=== PATIENT | female | born 1985 | race Caucasian/White ===

== ENCOUNTER 2021-11-25 09:07 | Outpatient (CLI) | payer BC, SELFPAY ==
--- NOTE | 2021-11-25 09:15 | CRLHL7_ITS ---
For Patients: As a result of the Century Cures Act, medical imaging exams and procedure reports are released immediately into your electronic medical record. You may view this report before your referring provider. If you have questions, please contact your health care provider. INDICATION: Third trimester scan, evaluate growth. Large for dates. COMPARISON: 08/05/2021 TECHNIQUE: Real time harris scale imaging of the fetus was performed. FINDINGS: Sonographic imaging demonstrates a single living intrauterine gestation. Fetus demonstrates a regular cardiac rate of 141 beats per minute. Fetus has a vertex position. The placenta lies posteriorly. Amniotic fluid volume appears increased and there is a single deepest vertical pocket: 9.0 cm. SANCHEZ 31.6 cm. The estimated weight is 3524gm which lies at the greater than 97th %. On the prior OB ultrasound exam dated 08/05/2021 the estimated weight was at the 96th%. BPD greater than 97th percentile. HC 88th percentile. Abdominal circumference greater than 97th percentile. FL 90th percentile. The HC/AC ratio measures 0.98 range (0.88-1.06). Normal gross body movements, tone and respiratory activity. IMPRESSION: Sonographic gestational age 38 weeks 5 days and sonographic due date 12/04/2021. Sonographic age 18 days ahead of the clinical age. Estimated weight greater than 97th percentile. Abdominal circumference greater than 97th percentile. Polyhydramnios with four-quadrant SANCHEZ 31.6 cm. Normal biophysical profile 12/23. Dictated by Erlin Barragan MD @ 11/25/2021 10:33:21 AM (Electronically Signed)
== END 2021-11-25 09:08 | disposition home or self-care (01) ==
LOC: US 09:08
PROVIDERS: Visit Provider Physician Assistant
DX: O36.63X0 Maternal care for excessive fetal growth, third trimester, not applicable or unspecified (principal); O40.3XX0 Polyhydramnios, third trimester, not applicable or unspecified; Z3A.38 38 weeks gestation of pregnancy
CPT/HCPCS: 76816; 76819

== ENCOUNTER 2021-12-02 09:32 | Outpatient (CLI) | payer BC, SELFPAY ==
--- NOTE | 2021-12-02 09:45 | CRLHL7_ITS ---
For Patients: As a result of the Century Cures Act, medical imaging exams and procedure reports are released immediately into your electronic medical record. You may view this report before your referring provider. If you have questions, please contact your health care provider. INDICATION: POLYHYDRAMNIOS COMPARISON: 11/25/2021, 08/05/2021 TECHNIQUE: Real time harris scale imaging of the fetus was performed. FINDINGS: Sonographic imaging demonstrates a single living intrauterine gestation. Fetus demonstrates a regular cardiac rate of 159 beats per minute. Fetus has a vertex position. The placenta lies fundal posterior. Amniotic fluid volume appears increased and there is a single deepest vertical pocket: 11.4 cm. SANCHEZ 30.2 cm. Normal gross body movements, tone and respiratory activity. IMPRESSION: Normal biophysical profile 12/23. Polyhydramnios, similar to the prior study 11/25/2021, measuring 30.2 cm. Dictated by Erlin Barragan MD @ 12/02/2021 10:34:03 AM (Electronically Signed)
--- OUTSIDE RECORDS SUMMARY | 2021-12-24 14:15 | XMS_ITS | Encounter Summary ---
:1985 Author Organization [facility] Address [address] [place] [address] Care Team Providers Name Role Phone Unavailable Primary Care Provider Unavailable Encounter Details Date Type Department Care Team Description 05/29/2017 Hospital Encounter HX NO MAPPING Social History Tobacco Use Types Packs/Day Years Used Date Smoking Tobacco: Never Assessed Sex Assigned at Date Recorded Not on file documented as of 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 Last Filed Vital Signs Vital Sign Reading Time Taken Comments Blood Pressure 109/61 05/29/2017 5:49 AM [employer] Pulse 65 05/29/2017 5:49 AM [employer] Temperature - - Respiratory Rate 16 05/29/2017 5:49 AM [employer] Oxygen Saturation - - Inhaled Oxygen Concentration - - Weight 88.8 kg (195 lb 12.3 oz) 05/29/2017 5:49 AM [employer] Height 175 cm (5' 8.9) 05/29/2017 5:49 AM [employer] Body Mass Index 29 05/29/2017 5:49 AM [employer] documented in 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 Plan of Treatment Not on filedocumented as of 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 Visit Diagnoses Not on filedocumented in 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
--- OUTSIDE RECORDS SUMMARY | 2021-12-24 14:15 | XMS_ITS | Encounter Summary ---
:1985 Author Organization [facility] Address [address] [place] [address] Care Team Providers Name Role Phone Carine Campos PA-C Primary Care Provider Unavailable Reason for Visit Reason Onset Date Comments refill request 04/06/2020 Encounter Details Date Type Department Care Team Description 04/06/2020 Telephone [place] Carine Campos PA-C refill request 111 [facility] [address] [place], [place] [address] Social History Tobacco Use Types Packs/Day Years Used Date Never Smoker Smokeless Tobacco: Never Used Alcohol Use Standard Drinks/Week Comments Yes 2 (1 standard drink = 0.6 oz pure alcoho l) Alcohol Habits Answer Date Recorded How often do you have a drink containing alcohol? 2-4 times a month 04/17/2020 How many drinks containing alcohol do you have on a 1 or 2 04/17/2020 typical day when you are drinking? How often do you have six or more drinks on one Less than mo nthly 04/17/2020 occasion? Comment: Not asked Social Isolation Answer Date Recorded In a typical week, how many times do you Twice a week 04/17/2020 talk on the phone with family, friends, or neighbors? How often do you get together with friends Once a week 04/17/2020 or relatives? How often do you attend judaism or voodoo 1 to 4 times per year 04/17/2020 services? Do you belong to any clubs or organizations Yes 04/17/2020 such as judaism groups, unions, fraternal or athletic groups, or school groups? How often do you attend meetings of the More than 4 times pe r year 04/17/2020 clubs or organizations you belong to? Are you now , , , 04/17/2020 , never or living with a partner? Physical Activity Answer Date Recorded On average, how many days per week do you engage in moderate to 0 days 04/17/2020 strenuous exercise (like walking fast, running, jogging, dancing, swimming, biking, or other activities that cause a light or heavy sweat)? On average, how many minutes do you engage in exercise at th is 0 min 04/17/2020 level? Stress Answer Date Recorded Do you feel stress - tense, restless, nervous, or To some ex tent 04/17/2020 anxious, or unable to sleep at night because your mind is troubled all the time - these days? Financial Resource Strain Answer Date Recorded How hard is it for you to pay for the very basics like Not h maxi at all 04/17/2020 food, housing, medical care, and heating? Intimate Partner Violence Answer Date Recorded Within the last year, have you been afraid of your partner o r No 04/17/2020 ex-partner? Within the last year, have you been humiliated or emotionall y No 04/17/2020 abused in other ways by your partner or ex-partner? Within the last year, have you been kicked, hit, slapped, or No 04/17/2020 otherwise physically hurt by your partner or ex-partner? Within the last year, have you been raped or forced to have any No 04/17/2020 kind of sexual activity by your partner or ex-partner? Food Insecurity Answer Date Recorded Within the past 12 months, you worried that your food would Never true 04/17/2020 run out before you got money to buy more. Within the past 12 months, the food you bought just didn't N ever true 04/17/2020 last and you didn't have money to get more. Transportation Needs Answer Date Recorded In the past 12 months, has lack of transportation kept you f rom No 04/17/2020 medical appointments or from getting medications? In the past 12 months, has lack of transportation kept you f rom No 04/17/2020 meetings, work, or getting things needed for daily living? Education Answer Date Recorded What is the highest level of school Bachelor's degree (e.g., BA, AB, 03/11/2018 you have completed or the highest BS) degree you have received? Sex Assigned at Date Recorded Female 03/11/2018 9:45 AM CDT documented as of 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 Miscellaneous Notes Telephone Encounter - Carine Campos PA-C - 04/06/2020 7:03 PM CST Refilled. ETING AUTOMATION SPECIALIST Telephone Encounter - Svetlana Paredes RN - 04/06/2020 2:38 PM CST Last office visit 03/21/2019, last refill 03/21/2019, please advise ETING AUTOMATION SPECIALIST Telephone Encounter - Rosita Glass - 04/06/2020 11:50 AM CST drospirenone-ethinyl estradiol (RAJI SMITH) 3-0.02 MG per tablet Take 1 tablet by mouth 1 (one) time each day Devan Bansal Pt has apt on 04/17 ETING AUTOMATION SPECIALIST documented in 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 Plan of Treatment Not on filedocumented as of 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 Visit Diagnoses Diagnosis Encounter for surveillance of contracept sonal pills documented in 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 Care Teams Associate Art Director Relationship Specialty Start Date End Date Carine Campos PA-C PCP - General Family Medicine 03/21/1907/16 documented as of 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
--- OUTSIDE RECORDS SUMMARY | 2021-12-24 14:15 | XMS_ITS | Encounter Summary ---
:[address] [facility] Address [address] [place] [address] Care Team Providers Name Role Phone Unavailable Primary Care Provider Unavailable Reason for Visit Reason Onset Date Comments Outpatient COVID-19 Testing 02/13/2020 Encounter Details Date Type Department Care Team Description 02/13/2020 External Outreach Department of [facility] Stormy Styles Infection Upper Medicine, [place] Vini PSophieAMurtazaCSophie Respiratory (Primary Clinic, in [place], [address]) [place], [place] [address] [address] [place], [place] [phone] (Work) [phone] Social History Tobacco Use Types Packs/Day Years Used Date Smoking Tobacco: Never Sex Assigned at Date Recorded Not on file documented as of 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 Progress Notes Sofia Robert RFidencio - 02/13/2020 12:37 PM CDT Encounter created for the drive-through COVID-19 testing. documented in 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 Plan of Treatment Not on filedocumented as of 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 Procedures Procedure Name Priority Date/Time Associated Diagnosis Comme nts SARS CORONAVIRUS-2 Routine 02/13/2020 12:58 PM Infection Upper Results for this RNA, V CDT Respiratory procedure are i n the results section. documented in 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 Results SARS Coronavirus-2 RNA, V Symptomatic (02/13/2020 12:58 PM CDT) [facility] Method Time Signature SARS-CoV-2 Swab, 02/14/2020 ECLR Specimen Nasopharynx 3:08 PM CDT Source SARS CoV-2 Undetected Undetected 02/14/2020 ECLR RNA, TMA 3:08 PM CDT Comment: SARS-CoV-2 RNA absent. This result does not rule out COVID-19 in the patient, as the sensitivity of the test depends o n the timing of the specimen collection and the quality of the specim en. Result should be correlated with patient's history and clinical presentat ion. ----ADDITIONAL INFORMATION---- This test is performed using the Aptima SARS-CoV-2 assay ([employer] which has received Emergency Use Authori zation (EUA) by the U.S. Food and Drug Administration. Fact sheets for this Emergency Use Autho rization (EUA) assay can be found at the following links: For Healthcare Providers: https://www.M:Metrics a.gov/media/616384/download For Patients: https://www.fda.gov/media/ 482354/download Specimen Anatomical Collection Method Collection Time Receive d Time (Source) Location / / Volume Laterality Varies 02/13/2020 12:58 02/13/2020 9:26 (Nasopharynx) PM CDT PM CDT Rafael Styles P.A.-C. LAB MICROBIOLOGY - GENERAL O RDERABLES Performing Organization Address City/State/ZIP Code Phon e Number [facility] [address] [place] [address] [phone] [facility] [place] [address] System in [address] documented in 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 Visit Diagnoses Diagnosis Infection Upper Respiratory - Primary documented in 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 Additional Health Concerns Infection Onset Date Last Indicated Resolved Time COVID19 Pending 02/13/2020 02/13/2020 02/14/2020 3:09 PM CDT documented as of 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
--- OUTSIDE RECORDS SUMMARY | 2021-12-24 14:15 | XMS_ITS | Encounter Summary ---
:1985 Author Organization [facility] Address [address] [place] [address] Care Team Providers Name Role Phone Unavailable Primary Care Provider Unavailable Encounter Details Date Type Department Care Team Description 2016 Hospital Encounter HX RST PMR PT OT CON Geraldine Escobar M, O.T. [address] [place] [id number] Social History Tobacco Use Types Packs/Day Years Used Date Smoking Tobacco: Never Assessed Sex Assigned at Date Recorded Not on file documented as of 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 Plan of Treatment Not on filedocumented as of 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 Visit Diagnoses Not on filedocumented in 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
--- OUTSIDE RECORDS SUMMARY | 2021-12-24 14:15 | XMS_ITS | Encounter Summary ---
:1985 Author Organization [facility] Address [address] [place] [address] Care Team Providers Name Role Phone Unavailable Primary Care Provider Unavailable Encounter Details Date Type Department Care Team Description 09/29/2016 Hospital Encounter HX RST EMERGENCY Provider, Historic al TRAUMA UNI Social History Tobacco Use Types Packs/Day Years Used Date Smoking Tobacco: Never Assessed Sex Assigned at Date Recorded Not on file documented as of 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 Plan of Treatment Not on filedocumented as of 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 Procedures Procedure Name Priority Date/Time Associated Comments Diagnosis FL FLUORO LESS THAN Routine 09/29/2016 6:21 PM Re sults for this 1 HOUR CDT procedure are i n the results section. DX HAND UNILATERAL Routine 09/29/2016 3:29 PM Res ults for this 3+ VIEWS CDT procedure are i n the results section. documented in 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 Results FL Fluoro Less Than 1 Hour (09/29/2016 6:21 PM CDT) Anatomical Region Laterality Modality Radiographic Imaging Specimen (Source) Anatomical Collection Method Collection Time Re ceived Time Location / / Volume Laterality 09/29/2016 6:21 PM CDT Impressions 09/29/2016 7:11 PM CDT Image intensifier used. Image(s) acquired. Electronically signed by: ?? Yue Bhandari MD [phone] 29-Sep-2016 18:28 I have reviewed the films/images and agr ee with the above interpretation. Electronically signed by: ?? Lore Garnica ??Oralia [phone] 29-Sep-2016 19 :11 Narrative 09/29/2016 7:11 PM CDT 29-Sep-2016 18:21:00 ??Exam: Fluoro Assistance less < 1hr Indications: Surgery ORIGINAL REPORT - 29-Sep-2016 18:28:00 EXAM: Fluoro Assistance less < 1hr: Procedure Note Shimon Garnica M.D. - 08/12/2017Format ting of this note might be different from the original. 29-Sep-2016 18:21:00 Exam: Fluoro Assist ance less < 1hr Indications: Surgery ORIGINAL REPORT - 29-Sep-2016 18:28:00 EXAM: Fluoro Assistance less < 1hr: IMPRESSION: Image intensifier used. Imag e(s) acquired. Electronically signed by: Yue Bhandari MD [phone] 29-Sep-2016 18:28 I have reviewed the films/images and agr ee with the above interpretation. Electronically signed by: Lore Garnica M.D. [phone] 29-Sep-2016 19:1 1 Sebastien Mirza M.D. IMG FLUOROSCOPY PROCEDURES DX Hand 3+ Views (09/29/2016 3:29 PM CDT) Anatomical Region Laterality Modality Upper Extremity, Hand N/A Radiographic Imagi ng Specimen (Source) Anatomical Collection Method Collection Time Re ceived Time Location / / Volume Laterality 09/29/2016 3:29 PM CDT Impressions 09/29/2016 3:34 PM CDT ??Soft tissue defect involving the distal right third ray with the distal tuft of the third distal phalanx exposed. There is a mild cortical irregularity of the distal tuft. Remainder negative. Electronically signed by: ?? Yue Brooke MD [id number] 29-Sep-2016 15:34 Narrative 09/29/2016 3:34 PM CDT 29-Sep-2016 15:29:00 ??Exam: R Hand PA Obl Splayed Lateral Indications: amputation distal right thi rd ORIGINAL REPORT - 29-Sep-2016 15:34:00 EXAM: ??Hand PA Obl Splayed Lateral RIGH T Procedure Note Jm Brooke M.D. - 08/12/2017F ormatting of this note might be different from the original. 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 There is a mild cortical irregularity of the distal tuft. Remainder negative. Electronically signed by: Yue Brooke MD [id number] 29-Sep-2016 15:34 Geraldine Boykin APRN.NCaterina IMG DIAGNOSTIC IMAGING PROCEDURES documented in 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 Visit Diagnoses Not on filedocumented in 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
--- OUTSIDE RECORDS SUMMARY | 2021-12-24 14:15 | XMS_ITS | Encounter Summary ---
:1985 Author Organization [facility] Address [address] [place] [address] Care Team Providers Name Role Phone Unavailable Primary Care Provider Unavailable Reason for Referral Specialty Diagnoses / Procedures Referred By Contact Refer red To Contact [facility] [place] [facility] [address] [place] [address] Referral ID Status Reason Start Date Expiration Date Visits Requ ested Visits Authorized Encounter Details Date Type Department Care Team Description 08/09/2020 Immunization Department of [facility] For COVID-19 Medicine, [place] Oralia Key Vaccine Immunization [facility], [address] (Primary Dx) in [place], [place] [address] [facility] [address] [place] [address] Social History Tobacco Use Types Packs/Day Years Used Date Smoking Tobacco: Never Sex Assigned at Date Recorded Not on file documented as of 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 Plan of Treatment Scheduled Referrals Name Type Priority Associated Diagnoses Order S chedule Covid immunization Outpatient Referral Routine Encounter For E xpected: office visit Covid-19 Vaccine 08/30/2020, Subsequent; 21 days Immunization Expires: 08/10/2023 documented as of 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 Visit Diagnoses Diagnosis Encounter For COVID-19 Vaccine Immunizat ion - Primary documented in 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
--- OUTSIDE RECORDS SUMMARY | 2021-12-24 14:15 | XMS_ITS | Encounter Summary ---
:1985 Author Organization [facility] Address [address] [place] [address] Care Team Providers Name Role Phone Unavailable Primary Care Provider Unavailable Reason for Visit Reason Comments COVID Nurse Line Encounter Details Date Type Department Care Team Description 02/13/2020 Clinical Communication Division of Brenda Domínguez Nurse [facility] Internal R, R.N. [facility] [address] [place] [address], in [facility] [address] [place] [phone] [place] [address] (Work) [place] [id number] Social History Tobacco Use Types Packs/Day Years Used Date Smoking Tobacco: Never Sex Assigned at Date Recorded Not on file documented as of 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 Miscellaneous Notes Telephone Encounter - Brenda Domínguez RSophieNSophie - 02/13/2020 12:07 PM CDT COVID-19 Nurse Line Screening ASSESSMENT COVID 19 Screening Have you had close contact with a person who has a LABORATORY CONFIRMED case of COVID-19 in the past14 days?: No - Continue screening. In the last 48 hours have you had any of the following symptoms?: New cough, New shortness of breath(sneezing, congestion) Do you have any urgent symptoms?: None (Continue Screening) Has the patient had COVID19 diagnosed with a PCR test in the last 90 days? : No (End Screening- Patient Meets Criteria for Testing PLAN Endpoint recommendation: Screening positive, testing indicated, advised to be swabbed for COVID-19, sent to [facility] located at [address] [facility]. Testing hours are M-F 10 am to 5 pm and Sat-Sun 9 am to 2 pm. When you arrive stay in your car and someone will direct you. , If it is currently after hours, please report to the testing site when it is next open. and Please avoid using public transportation per CDC recommendation. If you do not have personal transportation please self-quarantine until a personal transportation option is available. Care Points provided: STANDARD PRECAUTIONS FOR ALL PATIENTS: Wash hands often with soap and water for at least 20 seconds, especially after blowing your nose, coughing, sneezing, or having been in a public place. If soap and water aren't available, use a hand checker bakery products that contains at least 60% alcohol. Avoid close contact with anyone who may be exhibiting respiratory symptoms such as coughing and sneezing. Avoid touching your eyes, nose and mouth. Clean and disinfect frequently touched surfaces daily. Cover your mouth and nose with a cloth face cover when around others or in public. The cloth face cover is not a substitute for social distancing. Continue to keep about 6 feet between yourself andothers. Monitor for symptoms. Do not take your temperature within 30 minutes of exercise. If your test or screen is negative and new symptoms develop please contact your provider if it has been greaterthan 72 hours since you were tested. Educational Resource: https://www.cdc.gov/coronavirus/2019-ncov/ bgrmqmf-ywxutrg-bpyj/index.html RECOMMENDATIONS TESTING CRITERIA IS MET: Stay home except to get medical care. Quarantine for 14 days if exposed to someone with a laboratory confirmed case of COVID-19 exposure regardless of your test results. Avoid public areas and public transportation. Separate yourself from other people and stay in a specific sick room if possible. Wear a cloth face covering, over your nose and mouth if youmust be around other people even at home). Cover your nose and mouth when coughing or sneezing. Contact employer/occupational health department to notify them that they are being tested. Seek emergent care if any of the following occur: 1) Trouble breathing, 2) Bluish lips or face, 3) Persistent pain or pressure in the chest, 4) Newly confused or unable to stay alert and awake. Notify appropriate care provider if any new or worsening symptoms. You may need re-testing if it has been greater than 72 hours after a negative COVID- 19 test result. Education Resources: https://www.cdc.gov/coronavirus/2019- ncov/dz-amz-dyp-sick/vlbql-yxqs-mytg.html SELF CARE FOR ALL PATIENTS: Take breaks from watching, reading, or listening to news stories. Education: Patient/caregiver able to teach back Patient agreeable to plan of care: Yes The following references were used: [facility] novel coronavirus (COVID- 19) resources Nursing judgement documented in 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 Plan of Treatment Not on filedocumented as of 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 Visit Diagnoses Not on filedocumented in 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
--- OUTSIDE RECORDS SUMMARY | 2021-12-24 14:15 | XMS_ITS | Encounter Summary ---
:1985 Author Organization [facility] Address [address] [place] [address] Care Team Providers Name Role Phone Unavailable Primary Care Provider Unavailable Encounter Details Date Type Department Care Team Description 09/29/2016 Hospital Encounter HX NO MAPPING Social History Tobacco Use Types Packs/Day Years Used Date Smoking Tobacco: Never Assessed Sex Assigned at Date Recorded Not on file documented as of 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 Last Filed Vital Signs Vital Sign Reading Time Taken Comments Blood Pressure 122/62 09/29/2016 6:35 PM CDT Pulse 84 09/29/2016 6:35 PM CDT Temperature - - Respiratory Rate 16 09/29/2016 6:35 PM CDT Oxygen Saturation - - Inhaled Oxygen Concentration - - Weight - - Height - - Body Mass Index - - documented in 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 Plan of Treatment Not on filedocumented as of 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 Visit Diagnoses Not on filedocumented in 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
--- OUTSIDE RECORDS SUMMARY | 2021-12-24 14:15 | XMS_ITS | Clinical Summary ---
:1985 Author Organization [facility] Address [address] [place] [address] Care Team Providers Name Role Phone Unavailable Primary Care Provider Unavailable Allergies Active Allergy Reactions Severity Noted Date Comments Amoxicillin Rash Medium Morphine Dizziness Medium Medications Medication Sig Dispensed Refills Start Date End Date Status aspirin-acetaminophen- Take 1 tablet by 0 Active caffeine (EXCEDRIN mouth if needed MIGRAINE) 250-250-65 (migraine) MG per tablet cetirizine (ZyrTEC) 10 Take by mouth 1 0 Active MG tabletIndications: (one) time each Seasonal Allergic day if needed for Rhinitis allergies drospirenone-ethinyl Take 1 tablet by 84 tablet 3 04/17/2020 Active estradiol (LUIS) 3-0.02 mouth 1 (one) time MG per each day tabletIndications: Encounter for surveillance of contraceptive pills Active Problems Problem Noted Date Class 1 obesity due to excess calories without serious comorbidity with 03/21/2019 body mass index (BMI) of 31.0 to 31.9 in adult Last Assessment & Plan: Formatting of is note might be different from the original. Discussed importance of weight loss. Marcie rahman admits to frustrations with her weight and overeating. Offered referral to nutrition, patient declined. Advised 5 servings fruits vegetables daily, increasin g exercise throughout the week. Will con tinue to monitor. Well woman exam 03/21/2019 Last Assessment & Plan: Formatting of is note might be different from the original. Immunizations due: Up-to-date, declined influenza vaccine Mammogram: Not indicated, clinical breas t exam done today. Pap exam: Done today PHQ-9: 0 MAYUR-7: 0 Diabetes and hyperlipidemia screen done last year and normal. Advised patient to return to clinic for further evaluation of her right knee pain should it continue to bother her. We discussed the possible physical therapy. Advised patient to monitor mole on the right breast for changes. Nevus 03/21/2019 Overview: On the lateral aspect of the right brekaci t. Immunizations Name Administration Dates Next Due Tdap 09/29/2016 Family History Medical History Relation Comments Lung cancer Maternal Grandfather Diabetes Maternal Grandmother Hyperlipidemia Maternal Grandmother Hypertension Maternal Grandmother Hyperlipidemia Mother Relation Status Comments Maternal Grandfather Maternal Grandmother Mother Social History Tobacco Use Types Packs/Day Years [...] or relatives? How often do you attend baptism or gnosticist 1 to 4 times per year 04/17/2020 services? Do you belong to any clubs or organizations Yes 04/17/2020 such as baptism groups, unions, fraternal or athletic groups, or [...] Date Recorded Female 03/11/2018 9:45 AM CDT Last Filed Vital Signs Vital Sign Reading Time Taken Comments Blood Pressure 120/84 04/17/2020 2:29 PM MOVIE MACHINE OPERATOR Pulse 72 04/17/2020 2:29 PM MOVIE MACHINE OPERATOR Temperature 36.1 ??C (97 ??F) 04/17/2020 2:29 PM MOVIE MACHINE OPERATOR Respiratory Rate 18 04/17/2020 2:29 PM MOVIE MACHINE OPERATOR Oxygen Saturation 99% 04/17/2020 2:29 PM MOVIE MACHINE OPERATOR Inhaled Oxygen Concentration - - Weight 99.6 kg (219 lb 9.6 oz) 04/17/2020 2:29 PM MOVIE MACHINE OPERATOR Height 176.5 cm (5' 9.49) 04/17/2020 2:29 PM MOVIE MACHINE OPERATOR Body Mass Index 31.98 04/17/2020 2:29 PM MOVIE MACHINE OPERATOR Plan of Treatment Health Maintenance Due Date Last Done Comments COVID-19 Vaccine (3 - Booster 02/04/2021 09/04/2020, for Pfizer series) 08/09/2020 Pap Smear 03/21/2022 03/21/2019, 02/13/2016 [facility] Pneumococcal Vaccine: 65+ 10/21/2052 Years (1 - PCV) HPV Vaccines Aged Out No longer eligib le based on patient's age to complete this to [facility] Pneumococcal Vaccine: <64 Aged Out No longer eligible based on patient's age to complete this to [facility] Insurance Payer Benefit Plan / Subscriber ID Effective Dates Phone Addre ss Type Group BCBS OF BCBS OF [id number] [place] [id number] [place] [address] (Home) [place] [id number]
--- OUTSIDE RECORDS SUMMARY | 2021-12-24 14:15 | XMS_ITS | Encounter Summary ---
:1985 Author Organization [facility] Address [address] [place] [address] Care Team Providers Name Role Phone Unavailable Primary Care Provider Unavailable Encounter Details Date Type Department Care Team Description 01/26/2021 Admin Visit Department of Family Rafael Styles, Medicine, [facility] in [facility] [address] [facility] [address] [place] [address] [place] [address] [phone] Social History Tobacco Use Types Packs/Day Years Used Date Smoking Tobacco: Never Sex Assigned at Date Recorded Not on file documented as of 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 Plan of Treatment Not on filedocumented as of 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 Visit Diagnoses Not on filedocumented in 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 Additional Health Concerns Infection Onset Date Last Indicated Resolved Time COVID19 Pending 01/26/2021 01/26/2021 01/26/2021 8:39 PM CDT documented as of 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
--- OUTSIDE RECORDS SUMMARY | 2021-12-24 14:15 | XMS_ITS | Encounter Summary ---
:[address] [facility] Address [address] [place] [address] Care Team Providers Name Role Phone Unavailable Primary Care Provider Unavailable Reason for Referral Specialty Diagnoses / Procedures Referred By Contact Refer red To Contact Gustabo Castaneda M.D. [facility] [place] [address] [place] [address] Referral ID Status Reason Start Date Expiration Date Visits Requ ested Visits Authorized Encounter Details Date Type Department Care Team Description 08/02/2020 Orders Only [facility] PCP TH BAMT Sa rosendo Champagne M.D. [address] [place], [place] [phone] (Wo rk) Social History Tobacco Use Types Packs/Day Years Used Date Smoking Tobacco: Never Sex Assigned at Date Recorded Not on file documented as of 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 Plan of Treatment Scheduled Referrals Name Type Priority Associated Order Schedule Diagnoses Covid immunization Outpatient Referral Routine Ex pected: office visit Initial 021 (Approximate), Expires: 08/02/2021 documented as of 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 Visit Diagnoses Not on filedocumented in 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
--- OUTSIDE RECORDS SUMMARY | 2021-12-24 14:15 | XMS_ITS | Encounter Summary ---
:1985 Author Organization [facility] Address [address] [place] [address] Care Team Providers Name Role Phone Unavailable Primary Care Provider Unavailable Encounter Details Date Type Department Care Team Description 04/03/2020 Admin Visit Department of Family Medicine, [facility] in [place], [place] [address] [place] [address] Social History Tobacco Use Types Packs/Day Years Used Date Smoking Tobacco: Never Sex Assigned at Date Recorded Not on file documented as of 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 Plan of Treatment Not on filedocumented as of 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 Visit Diagnoses Not on filedocumented in 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 Additional Health Concerns Infection Onset Date Last Indicated Resolved Time COVID19 Pending 04/03/2020 04/03/2020 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
--- OUTSIDE RECORDS SUMMARY | 2021-12-24 14:15 | XMS_ITS | Encounter Summary ---
:1985 Author Organization [facility] Address [address] [place] [address] Care Team Providers Name Role Phone Unavailable Primary Care Provider Unavailable Encounter Details Date Type Department Care Team Description 10/14/2016 Hospital Encounter HX NO MAPPING Social History Tobacco Use Types Packs/Day Years Used Date Smoking Tobacco: Never Assessed Sex Assigned at Date Recorded Not on file documented as of 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 Plan of Treatment Not on filedocumented as of 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 Visit Diagnoses Not on filedocumented in 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
--- OUTSIDE RECORDS SUMMARY | 2021-12-24 14:15 | XMS_ITS | Encounter Summary ---
:[address] [facility] Address [address] [place] [address] Care Team Providers Name Role Phone Kristi Dubois DNP, BLOCK PRESS OPERATOR, DUMPER Primary Care Provider [phone] Encounter Details Date Type Department Care Team Description 03/22/2018 [facility] Screening for diabetes melli tus; [address] Screening for hyperlipidemia [place], [place] [address] Social History Tobacco Use Types [...] or relatives? How often do you attend anabaptist or taoism 1 to 4 times per year 04/17/2020 services? Do you belong to any clubs or organizations Yes 04/17/2020 such as anabaptist groups, unions, fraternal or athletic groups, or [...] AM CDT documented as of 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 Plan of Treatment Not on filedocumented as of 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 Procedures Procedure Name Priority Date/Time Associated Diagnosis Comme nts FASTING ? Routine 03/22/2018 8:35 AM Screening for diabetes Results for this SYSTEM TECHNOLOGIST mellitus procedure are i n the results section. HEMOCUE GLUCOSE Routine 03/22/2018 8:35 AM Screening for diabe anahi Results for this SYSTEM TECHNOLOGIST mellitus procedure are i n the results section. LIPID PANEL Routine 03/22/2018 8:35 AM Screening for Results for this SYSTEM TECHNOLOGIST hyperlipidemia procedure are in the results section. documented in 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 Results Fasting ? (03/22/2018 8:35 AM SYSTEM TECHNOLOGIST) P athologist Signature Fasting? Yes 03/22/2018 8:38 [facility] AM SYSTEM TECHNOLOGIST LAB Specimen Anatomical Collection Method Collection Time Receive d Time (Source) Location / / Volume Laterality 03/22/2018 8:35 AM 8 8:35 SYSTEM TECHNOLOGIST AM SYSTEM TECHNOLOGIST Kristi Dubois DNP, BLOCK PRESS OPERATOR, DUMPER LAB BLOOD ORDERABLES Performing Organization Address City/State/ZIP Code Phon e Number [facility] [address] [place] [address] Lipid panel (03/22/2018 8:35 AM SYSTEM TECHNOLOGIST) P athologist Signature Cholesterol 150 0 - 199 03/22/2018 [facility] mg/dL 12:59 PM [facility] Comment: Recommended by National Cholesterol Education Program (ATP III) -------- Cholesterol Ranges -------- <200 ? Desirable 200-239 ? Borderline high >=240 ? High Triglycerides 90 0 - 149 mg/dL 03/22/2018 12:59 PM [facility] Comment: -------- TRIG Ranges -------- <150 ?Normal 150-199 ? Borderline high 200-499 ? High >=500 ? Very high HDL 54 40 - 60 mg/dL 03/22/2018 12:59 PM [facility] Comment: -------- HDL Ranges -------- <40 ?Low 40-59 ?Normal >=60 ? Optimal LDL Calculated 78 0 - 99 mg/dL 03/22/2018 12:59 PM CS [facility] Comment: -------- LDL Ranges -------- <100 ? Optimal 100-129 ?Near optimal/above op timal 130-159 ?Borderline high 160-189 ?High >=190 ?Very high Fasting? Yes 03/22/2018 8:38 AM [facility] Specimen Anatomical Collection Method Collection Time Receive d Time (Source) Location / / Volume Laterality Blood (Blood, 03/22/2018 8:35 AM 03/22/20 18 Venous) SYSTEM TECHNOLOGIST 12:20 PM SYSTEM TECHNOLOGIST Kristi Dubois DNP, APRN, DUMPER LAB BLOOD ORDERABLES Performing Organization Address City/[facility]/ZIP Code Phon e Number [facility] [address] [place] [phone] HemoCue glucose (03/22/2018 8:35 AM SYSTEM TECHNOLOGIST) P athologist Signature Glucose, Bld 98 70 - 100 03/22/2018 [facility] mg/dL 8:58 AM [facility] Comment: . Specimen Anatomical Collection Method Collection Time Receive d Time (Source) Location / / Volume Laterality Blood 03/22/2018 8:35 AM 8 8:35 SYSTEM TECHNOLOGIST AM SYSTEM TECHNOLOGIST Kristi Dubois DNP, APRN, DUMPER LAB BLOOD ORDERABLES Performing Organization Address City/[facility]/ZIP Code Phon e Number [facility] [address] [place] [address] documented in 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 Visit Diagnoses Diagnosis Screening for diabetes mellitus Screening for hyperlipidemia Screening for lipoid disorders documented in 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 Care Teams Communications Analyst Relationship Specialty Start Date End Date Muzic, Kristi J, DNP, BLOCK PRESS OPERATOR, DUMPER PCP - General 12/22/17 03/20/19 documented as of 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
--- OUTSIDE RECORDS SUMMARY | 2021-12-24 14:15 | XMS_ITS | Encounter Summary ---
:1985 Author Organization [facility] Address [address] [place] [address] Care Team Providers Name Role Phone Carine Campos PA-C Primary Care Provider Unavailable Encounter Details Date Type Department Care Team Description 12/06/2018 Telephone [place] Carine Campos PA-C [address] [place] [address] [address] [place], [place] [address] Social History Tobacco Use Types [...] or relatives? How often do you attend druze or oriental orthodox 1 to 4 times per year 04/17/2020 services? Do you belong to any clubs or organizations Yes 04/17/2020 such as druze groups, unions, fraternal or athletic groups, or [...] Diagnoses Not on filedocumented in 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 Care Teams Residential Appliance Repair Technician Relationship Specialty Start Date End Date Carine Campos PA-C PCP - General Family Medicine 03/21/1907/16 documented as of 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
--- OUTSIDE RECORDS SUMMARY | 2021-12-24 14:15 | XMS_ITS | Encounter Summary ---
:1985 Author Organization [facility] Address [address] [place] [address] Care Team Providers Name Role Phone Unavailable Primary Care Provider Unavailable Reason for Visit Reason Onset Date Comments Outpatient COVID-19 Testing 04/03/2020 Encounter Details Date Type Department Care Team Description 04/03/2020 External Outreach Department of [facility] Stormy Styles Infection Upper Medicine, [place] [facility] (Primary Clinic, in [place], [address]) [place], [place] [address] [address] [place], [place] [phone] [phone] (Work) [phone] Social History Tobacco Use Types Packs/Day Years Used Date Smoking Tobacco: Never Sex Assigned at Date Recorded Not on file documented as of 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 Progress Notes Sonia Iraheta L.P.N. - 04/03/2020 1:51 PM CST Encounter created for the drive-through COVID-19 testing. 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 documented in 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 Results SARS Coronavirus-2 RNA, V Symptomatic (04/03/2020 2:19 PM MARKETING TEACHER) [facility] Method Time Signature SARS-CoV-2 Swab, 04/04/2020 [facility] Specimen Nasopharynx 12:31 PM Source MARKETING TEACHER SARS CoV-2 Undetected Undetected 04/04/2020 [facility] RNA, TMA 12:31 PM MARKETING TEACHER Comment: SARS-CoV-2 RNA absent. This result does not rule out COVID-19 in the patient, as the sensitivity of the test depends o n the timing of the specimen collection and the quality of the specim en. Result should be correlated with patient's history and clinical presentat ion. ----ADDITIONAL INFORMATION---- This test is performed using the Aptima SARS-CoV-2 assay ([employer] which has received Emergency Use Authori zation (EUA) by the U.S. Food and Drug Administration. Fact sheets for this Emergency Use Autho rization (EUA) assay can be found at the following links: For Healthcare Providers: https://www.MedAware a.gov/media/352268/download For Patients: https://www.fda.gov/media/ 519223/download Specimen Anatomical Collection Method Collection Time Receive d Time (Source) Location / / Volume Laterality Varies 04/03/2020 2:19 PM 0 9:58 (Nasopharynx) MARKETING TEACHER PM MARKETING TEACHER Rafael Styles P.A.-C. 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
--- OUTSIDE RECORDS SUMMARY | 2021-12-24 14:15 | XMS_ITS | Encounter Summary ---
:[address] [facility] Address [address] [place] [address] Care Team Providers Name Role Phone Carine Leo PA-C Primary Care Provider Unavailable Reason for Visit Reason Comments Annual Exam Encounter Details Date Type Department Care Team Description 03/21/2019 Office Visit [place] Carine Leo, Well woman exam (Primary Dx) ; [address] Encounter for surveillance o f contraceptive pills; [place], [place] [address] Screening for cervical cance r; [phone] Screening for h uman papillomavirus (HPV); Influenza vacci nation declined; Class 1 obesity due to excess calories without serious comorbidity with body mass index (BMI) of 31.0 to 31.9 in adult Social History Tobacco Use Types Packs/Day Years [...] or relatives? How often do you attend voodoo or jewish 1 to 4 times per year 04/17/2020 services? Do you belong to any clubs or organizations Yes 04/17/2020 such as voodoo groups, unions, fraternal or athletic groups, or [...] AM CDT documented as of 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 Last Filed Vital Signs Vital Sign Reading Time Taken Comments Blood Pressure 112/72 03/21/2019 9:29 AM COMMUNITY LIVING INSTRUCTOR Pulse 82 03/21/2019 9:29 AM COMMUNITY LIVING INSTRUCTOR Temperature 36.5 ??C (97.7 ??F) 03/21/2019 9:29 AM COMMUNITY LIVING INSTRUCTOR Respiratory Rate 16 03/21/2019 9:29 AM COMMUNITY LIVING INSTRUCTOR Oxygen Saturation 100% 03/21/2019 9:29 AM COMMUNITY LIVING INSTRUCTOR Inhaled Oxygen Concentration - - Weight 98.7 kg (217 lb 11.2 oz) 03/21/2019 9:29 AM COMMUNITY LIVING INSTRUCTOR Height 177 cm (5' 9.69) 03/21/2019 9:29 AM COMMUNITY LIVING INSTRUCTOR Body Mass Index 31.52 03/21/2019 9:29 AM COMMUNITY LIVING INSTRUCTOR documented in 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 Progress Notes Carine Leo PA-C - 03/21/2019 9:40 AM CST Well Adult - Estab Subjective Patient ID: Ivis Bell is a 33 y.o. female. Chief Complaint Patient presents with ??? Annual Exam HPI Patient is a 33-year-old female with medical history significant for obesity presenting today for annual exam. She has no questions or concerns today. 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 She needs a refill of her oral contraceptive pill. Periods are regular. Denies history of migraine with aura, bleeding disorder, tobacco use. Patient and her plan on having children but are not yet trying to conceive. She stays active by going to exercise classes 2-3 times per week. She admits to overeating and is frustrated with her weight. She is due for Pap smear today. She does get occasional migraines without aura, about once a month. Controlled with Excedrin. She takes occasional Zyrtec forseasonal allergies. No other questions or concerns today. 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 Current Outpatient Medications: ??? iptjnjs-cyzwjhmspllpk-kdclqykv (EXCEDRIN MIGRAINE) 250-250-65 MG per tablet, Take 1 tablet by mouth if needed (migraine) , Disp: , Rfl: ??? cetirizine (ZyrTEC) 10 MG tablet, Take by mouth 1 (one) time each day if needed for allergies, Disp: , Rfl: ??? drospirenone-ethinyl estradiol (LUIS,GIANVI) 3-0.02 MG per tablet, Take 1 tablet by mouth 1 (one)time each day, Disp: 84 tablet, Rfl: 3 Allergies as of 03/21/2019 - Reviewed 03/21/2019 Allergen Reaction Noted ??? Amoxicillin Rash ??? Morphine Dizziness Past Medical History: Diagnosis Date ??? PCOS (polycystic ovarian syndrome) Past Surgical History: Procedure Laterality Date ??? EXPLORATORY LAPAROTOMY 2007 ??? WISDOM TOOTH EXTRACTION Family History Problem Relation Age of Onset ??? Hyperlipidemia Mother ??? Diabetes Maternal Grandmother ??? Hypertension Maternal Grandmother ??? Hyperlipidemia Maternal Grandmother ??? Lung cancer Maternal Grandfather Social History Socioeconomic History ??? Marital status: Spouse name: William ??? Number of children: 0 ??? Years of education: None ??? Highest education level: Bachelor's degree (e.g., BA, AB, BS) Occupational History ??? Occupation: [employer] Comment: [email or web address] Social Needs ??? Financial resource strain: Not hard at all ??? Food insecurity: Worry: Never true Inability: Never true ??? Transportation needs: Medical: No Non-medical: No Tobacco Use ??? Smoking status: Never Smoker ??? Smokeless tobacco: Never Used Substance and Sexual Activity ??? Alcohol use: Yes Alcohol/week: 1.2 oz Types: 1 Glasses of wine, 1 Cans of beer per week Frequency: 2-4 times a month Drinks per session: 1 or 2 Binge frequency: Less than monthly ??? Drug use: No ??? Sexual activity: Yes Partners: Male control/protection: OCP Lifestyle ??? Physical activity: Days per week: 2 days Minutes per session: 50 min ??? Stress: To some extent Relationships ??? Social connections: Talks on phone: Twice a week Gets together: Once a week Attends jewish service: 1 to 4 times per year Active member of club or organization: Yes Attends meetings of clubs or organizations: More than 4 times per year Relationship status: ??? Intimate partner violence: Fear of current or ex partner: No Emotionally abused: No Physically abused: No Forced sexual activity: No Other Topics Concern ??? None Social History Narrative ??? None Review of Systems Musculoskeletal: Positive for arthralgias (Intermittent right knee pain and stiffness for the past year since injuring it hiking 1 year ago). Skin: Negative for color change, pallor, rash and wound. Brown mole near the breast that she has had as long as she can remember, no changes. All other systems reviewed and are negative. Immunization History Administered Date(s) Administered ??? Tdap 09/29/2016 Objective Visit Vitals BP 112/72 (BP Location: Right arm, Patient Position: Sitting) Pulse 82 Temp 36.5 ??C (97.7 ??F) (Temporal) Resp 16 Ht 1.77 m (5' 9.69) Wt 98.7 kg (217 lb 11.2 oz) LMP 02/22/2019 SpO2 100% BMI 31.52 kg/m?? Smoking Status Never Smoker BSA 2.2 m?? Physical Exam Constitutional: She appears well-developed and well-nourished. HENT: Head: Normocephalic and atraumatic. Right Ear: Tympanic membrane and external ear normal. Left Ear: Tympanic membrane and external ear normal. Nose: Nose normal. Mouth/Throat: Oropharynx is clear and moist. Eyes: Pupils are equal, round, and reactive to light. Conjunctivae and EOM are normal. Neck: Normal range of motion. Neck supple. Carotid bruit is not present. No thyromegaly present. Cardiovascular: Normal rate, regular rhythm, normal heart sounds and intact distal pulses. Pulmonary/Chest: Effort normal and breath sounds normal. Right breast exhibits no inverted nipple, no mass, no skin change and no tenderness. Left breast exhibits no inverted nipple, no mass, no skin change and no tenderness. No breast tenderness. Breasts are symmetrical. Abdominal: Soft. Bowel sounds are normal. There is no tenderness. Genitourinary: Vagina normal and uterus normal. No breast tenderness. There is no rash on the right labia. There is no rash on the left labia. Right adnexum displays no mass. Left adnexum displays no mass. Lymphadenopathy: She has no cervical adenopathy. Neurological: She is alert. She displays normal reflexes. Skin: Skin is warm and dry. Capillary refill takes less than 2 seconds. Brown, raised nevus on the lateral aspect of the right breast, approximately 7 mm in diameter. Psychiatric: She has a normal mood and affect. Her behavior is normal. Patient did seem a little emotional today during the encounter. She started to get tearful without obvious cause. When I asked patient if she was all right, she said I do not know and said that she was just a little nervous today. Tearfulness resolved spontaneously and normal mood returned by the end of the encounter. Vitals reviewed. Assessment/Plan Problem List Items Addressed This Visit Digestive Class 1 obesity due to excess calories without serious comorbidity with body mass index (BMI) of 31.0 to 31.9 in adult Discussed importance of weight loss. Patient admits to frustrations with her weight and overeating.Offered referral to nutrition, patient declined. Advised 5 servings fruits vegetables daily, increasing exercise throughout the week. Will continue to monitor. Other Well woman exam - Primary Immunizations due: Up-to-date, declined influenza vaccine Mammogram: Not indicated, clinical breast exam done today. Pap exam: Done today PHQ-9: 0 MAYUR-7: 0 Diabetes and hyperlipidemia screen done last year and normal. Advised patient to return to clinic for further evaluation of her right knee pain should it continueto bother her. We discussed the possible physical therapy. Advised patient to monitor mole on the right breast for changes. Other Visit Diagnoses Encounter for surveillance of contraceptive pills Relevant Medications drospirenone-ethinyl estradiol (RAJI SMITH) 3-0.02 MG per tablet Screening for cervical cancer Relevant Orders Pap Smear Screening for human papillomavirus (HPV) Relevant Orders HPV High Risk DNA Detection with Genotyping (Completed) Influenza vaccination declined Carine Leo PA-C UNITY LIVING INSTRUCTOR documented in 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 Miscellaneous Notes Assessment & Plan Note - Carine Leo PA-C - 03/21/2019 12:02 PM CSTAssociated Problem(s): Well woman exam Immunizations due: Up-to-date, declined influenza vaccine Mammogram: Not indicated, clinical breast exam done today. Pap exam: Done today PHQ-9: 0 MAYUR-7: 0 Diabetes and hyperlipidemia screen done last year and normal. Advised patient to return to clinic for further evaluation of her right knee pain should it continueto bother her. We discussed the possible physical therapy. Advised patient to monitor mole on the right breast for changes. UNITY LIVING INSTRUCTOR Assessment & Plan Note - Carine Leo PA-C - 03/21/2019 12:01 PM CSTAssociated Problem(s): Class 1 obesity due to excess calories without serious comorbidity with body mass index (BMI) of 31.0 to 31.9 in adult Discussed importance of weight loss. Patient admits to frustrations with her weight and overeating. Offered referral to nutrition, patient declined. Advised 5 servings fruits vegetables daily, increasing exercise throughout the week. Will continue to monitor. UNITY LIVING INSTRUCTOR documented in 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 Plan of Treatment Not on filedocumented as of 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 Procedures Procedure Name Priority Date/Time Associated Diagnosis Comme nts HPV HIGH RISK DNA Routine 03/21/2019 9:56 AM Screening for hum an Results for this DETECTION WITH COMMUNITY LIVING INSTRUCTOR papillomavirus (HPV) proce jacques are in GENOTYPING the results section. PAP TEST Routine 03/21/2019 9:56 AM Screening for cervical Results for this COMMUNITY LIVING INSTRUCTOR cancer procedure are i n the results section. documented in 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 Results HPV High Risk DNA Detection with Genotyping (03/21/2019 9:56 AM COMMUNITY LIVING INSTRUCTOR) [facility] Method Time Signature Source Endocervical 03/24/2019 [facility] 5:13 PM COMMUNITY LIVING INSTRUCTOR [facility] HPV Type 16 Negative Negative 03/24/2019 [facility] 5:13 PM COMMUNITY LIVING INSTRUCTOR [facility] HPV Type 18 Negative Negative 03/24/2019 [facility] 5:13 PM COMMUNITY LIVING INSTRUCTOR [facility] HPV non-Type Negative Negative 03/24/2019 [facility] 16 or 18 5:13 PM COMMUNITY LIVING INSTRUCTOR [facility] Comment: The following Other High Risk HPV types were not detected: 31, 33, 35, 39, 45, 51, 52, 56, 58, 59, 66, and 68 ADDITIONAL INFORMATIO N This test has been modified from the man renettar's instructions. Its performance characteri stics were determined by [facility] in a manner co nsistent with CLIA requirements. This test has not been leona ared or approved by the U.S. Food and Drug Administration. Test Performed by: [facility] - [address] [address] Ciso: Joao Alexis M.D. Ph. D.; CLIA# [id number] Specimen (Source) Anatomical Collection Method Collection Time Re ceived Time Location / / Volume Laterality Pap collection 03/21/2019 9:56 03/21/2019 1:27 bottle AM COMMUNITY LIVING INSTRUCTOR PM COMMUNITY LIVING INSTRUCTOR Carine Leo PA-C LAB CYTOLOGY ORDERABLES Performing Organization Address City/State/ZIP Code Phon e Number [facility] see result attachment for specific address Pap Smear (03/21/2019 9:56 AM COMMUNITY LIVING INSTRUCTOR) Specimen Anatomical Collection Method Collection Time Receive d Time (Source) Location / / Volume Laterality Sure Path PAP, 03/21/2019 9:56 AM 019 3:44 screen COMMUNITY LIVING INSTRUCTOR PM COMMUNITY LIVING INSTRUCTOR Narrative [facility] - 03/18 2:30 PM COMMUNITY LIVING INSTRUCTOR ? [facility] ? [address] ?[place] [address] ? Patient: ?IVIS BELL ? Procedure: ? 03/21/2019 09:56 /Age/Sex: ??1985, 33 Y, F ? Received: ?03/21/2019 15:44 ?Accession #: ?? [id number] Billing: ?[id number] ?Patient Location: [facility] ?OFFICE Ordered by: ?? CARINE LEO PA-C ? Attending: ? CARINE LEO PA-C ? [facility] CYTOLOGY FINAL REPORT SPECIMEN: (A) SURE PATH PAP, SCREEN SPECIMEN DESCRIPTION: Endocervical Received cloudy specimen in SurePath via l. CLINICAL INFORMATION: LMP: 02/22/2019 ?? Prev.normal: 2016 ??SPECIMEN ADEQUACY: Satisfactory for Evaluation. ??Endocervi temo cells/transformation zone component present. GENERAL CATEGORIZATION: Negative for Intraepithelial Lesion or M alignancy PAP Test Disclaimer Cervical cytology is a screening test pr imarily for squamous cancer and its precursors and has associated false-nega tive and false-positive results. Regular sampling and follow-up of unexplained cl inical signs and symptoms are recommended to minimize the impact of false negative and false positive results. Screened By: Signed By: DEENA REDD(ASCP) <Sign Out Dr. Travis> Reported: ??03/28/2019 ? Page 1 of 1 Carine Leo PA-C LAB CYTOLOGY ORDERABLES Performing Organization Address City/State/ZIP Code Phon e Number [facility] [address] [place] [address] documented in 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 Visit Diagnoses Diagnosis Well woman exam - Primary Routine general medical examination at a health care facility Encounter for surveillance of contracept sonal pills Screening for cervical cancer Screening for malignant neoplasm of the cervix Screening for human papillomavirus (HPV) Special screening examination for human papillomavirus (HPV) Influenza vaccination declined Class 1 obesity due to excess calories w ithout serious comorbidity with body mass index (BMI) of 31.0 to 31.9 in adult documented in 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 Care Teams Associate Relations Specialist Relationship Specialty Start Date End Date Carine eLo PA-C PCP - General Family Medicine 03/21/1907/16 documented as of 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
--- OUTSIDE RECORDS SUMMARY | 2021-12-24 14:15 | XMS_ITS | Clinical Summary ---
:1985 Author Organization [facility] Address [address] [place] [address] Care Team Providers Name Role Phone Unavailable Primary Care Provider Unavailable Source Comments Patient records contain information from all sites at [facility]. For routine questions regarding patient records, call [phone] during business hours, M-F 8:00 AM - 5:00 PM Central Time. Record requests for emergency care only can be directed to [phone] at any time.[facility] Immunizations Name Administration Dates Next Due SARS-COV-2 (COVID-19) - PFIZER (12 years or older) , 08/09/2020 Tdap 09/29/2016 Social History Tobacco Use Types Packs/Day Years Used Date Smoking Tobacco: Never Sex Assigned at Date Recorded Not on file Last Filed Vital Signs Vital Sign Reading Time Taken Comments Blood Pressure 109/61 05/29/2017 5:49 AM COMMERCIAL TELLER Pulse 65 05/29/2017 5:49 AM COMMERCIAL TELLER Temperature - - Respiratory Rate 16 05/29/2017 5:49 AM COMMERCIAL TELLER Oxygen Saturation - - Inhaled Oxygen Concentration - - Weight 88.8 kg (195 lb 12.3 oz) 05/29/2017 5:49 AM COMMERCIAL TELLER Height 175 cm (5' 8.9) 05/29/2017 5:49 AM COMMERCIAL TELLER Body Mass Index 29 05/29/2017 5:49 AM COMMERCIAL TELLER Plan of Treatment Health Maintenance Due Date Last Done Comments HIV Screening 1985 Hepatitis C Screening 1985 COVID-19 Vaccine (3 - Booster 02/04/2021 09/04/2020, for Pfizer series) 08/09/2020 Depression Screening (Annual 05/18/2021 PHQ-2) Influenza Vaccine (#1) 2022 Cervical Cancer Screening 03/21/2022 03/21/2019 DTaP,Tdap,and Td Vaccines (4 10/29/2031 10/28/2021, - Td or Tdap) 09/29/2016, 12/09/2011 Pneumococcal vaccine (0-64 Aged Out No lo nger eligible based years) on patient's age to complete this to pic Medical Devices Implanted Type Area Planer Setup Operator Device Shelf Model / Identifier Expiration Serial / Date Lot Dressing Integra 5x5 Meshed - Olsen [id number] Bone or Other/Legacy - In tegra Implanted: Qty: 1 on 09/29/2016 Tissue See Implant Description Description: Device Planer Setup Operator - [employer]. Body Location - Other. wound dressing. Device Status Text - BON [id number]. Insurance Payer Benefit Plan Subscriber ID Effective Dates Phone Address Type / Group [facility] [id number] 2017-Ariella [phone] [address] [address] [facility] [address] [place] [address] [place] (Home) [facility] [phone] [employer] (Work) [phone]
--- OUTSIDE RECORDS SUMMARY | 2021-12-24 14:15 | XMS_ITS | Encounter Summary ---
:1985 Author Organization [facility] Address [address] [place] [address] Care Team Providers Name Role Phone Unavailable Primary Care Provider Unavailable Encounter Details Date Type Department Care Team Description 09/04/2020 Immunization Department of [employer] Lee Powers For COVID-19 Medicine, [place] Oralia Key Vaccine Immunization Professional Building, [address] [facility] [address] [facility] in [address] [address] [place] [address] [phone] Social History Tobacco Use Types Packs/Day Years Used Date Smoking Tobacco: Never Sex Assigned at Date Recorded Not on file documented as of 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 Plan of Treatment Not on filedocumented as of 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 Visit Diagnoses Diagnosis Encounter For COVID-19 Vaccine Immunizat ion documented in 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
--- OUTSIDE RECORDS SUMMARY | 2021-12-24 14:15 | XMS_ITS | Encounter Summary ---
:1985 Author Organization [facility] Address [address] [place] [address] Care Team Providers Name Role Phone Unavailable Primary Care Provider Unavailable Reason for Visit Reason Onset Date Comments Testing For Upper Respiratory Virus Symptoms 01/26/2021 Encounter Details Date Type Department Care Team Description 01/26/2021 External Outreach Department of [facility] Stormy Styles Contact With And Medicine, Sascha Martini P.A.-C. (Suspected) Exposure Clinic, in [address] To COVID-19 (Primary [place], [place] Dx) [address] [facility] [address] [place], [place] [phone] (Work) [phone] Social History Tobacco Use Types Packs/Day Years Used Date Smoking Tobacco: Never Sex Assigned at Date Recorded Not on file documented as of 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 Progress Notes Kenneth Reyes RSophieN. - 01/26/2021 7:12 AM CDT Encounter created for symptomatic infectious disease screening with possible COVID, Influenza, RSV, and/or Group A Strep testing. documented in 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 Plan of Treatment Not on filedocumented as of 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 Procedures Procedure Name Priority Date/Time Associated Diagnosis Comme nts SARS CORONAVIRUS-2 Routine 01/26/2021 9:17 AM Contact With And Results for this RNA, V CDT (Suspected) Exposure procedu re are in To COVID-19 the results section. documented in 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 Results SARS Coronavirus-2 RNA, V Symptomatic (01/26/2021 9:17 AM CDT) [facility] Method Time Signature SARS-CoV-2 Swab, 01/26/2021 ECL[facility] Specimen Nasopharynx 8:38 PM CDT Source SARS CoV-2 Undetected Undetected 01/26/2021 E[facility] RNA, TMA 8:38 PM CDT Comment: SARS-CoV-2 RNA absent. This result does not rule out COVID-19 in the patient, as the sensitivity of the test depends o n the timing of the specimen collection and the quality of the specim en. Result should be correlated with patient's history and clinical presentat ion. ----ADDITIONAL INFORMATION---- This molecular amplification test was pe rformed using the Aptima SARS-CoV-2 assay ([employer] on the Xolas tem under emergency use authorization (EUA) by the U.S. Food and Drug Administ ration. Fact sheets for this EUA assay can be fo und at the following links: For Healthcare Providers: https://www.[employer] a.gov/media/230265/download For Patients: https://www.fda.gov/media/ 486118/download Specimen Anatomical Collection Method Collection Time Receive d Time (Source) Location / / Volume Laterality Varies 01/26/2021 9:17 AM 3:08 (Nasopharynx) CDT PM CDT Rafael Styles P.A.-C. LAB MICROBIOLOGY - GENERAL O [place] Performing Organization Address City/State/ZIP Code Phon e Number [facility] [address] [place] [address] [phone] [facility] [place] [address] System [address] documented in 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 Visit Diagnoses Diagnosis Contact With And (Suspected) Exposure To COVID-19 - Primary documented in 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 Additional Health Concerns Infection Onset Date Last Indicated Resolved Time COVID19 Pending 01/26/2021 01/26/2021 01/26/2021 8:39 PM CDT documented as of 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
--- OUTSIDE RECORDS SUMMARY | 2021-12-24 14:15 | XMS_ITS | Encounter Summary ---
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 Telephone Encounter - Svetlana Nagy R.N. - 01/25/2021 4:30 PM CDT COVID-19 Nurse Line Screening ASSESSMENT Region Select appropriate region: : [place] Age Pathway Select approprite pathway: : Adult Have you had close contact* with a person who has a LABORATORY CONFIRMED case of COVID-19 in the past 14 days?: Yes- provide quarantine instructions unless exceptions met. (Continue Screening) (01-23-21) In the last 48 hours, have you had a fever* OR symptoms that are unrelated to a preexisting illness?: New cough (sinus drainage, sneezing; chest congestion) Have you received a COVID-19 vaccine in the last 72 hours? : No vaccine received (Continue Screening) Do you have any of the following urgent symptoms?: No urgent symptoms noted (Continue Screening) Have you tested positive for COVID-19 in the last 45 days?: No (Continue Screening) Are ALL the following criteria met: age between 18 to 75 yrs, main symptom is a sore throat with duration of 24 hrs to 7 days, onset of sore throat not associated with new upper respiratory symptoms*? : No, COVID testing is recommended (End Screening) Symptom Onset Date of symptom onset: 01/22/21 Testing Recommendation Endpoint Is testing recommended? : Recommended to test PLAN Endpoint recommendation: Symptomatic testing indicated, advised to be swabbed for COVID-19 Only , sent to [facility] located at [address] [employer] [address]. An appointment is required for testing, please call [phone] Thursday- Thursday 7am to 6pm and Thursday & Thursday 9am to 4pm to schedule an appointment. Testing hours are 8am - 4:30pm daily. You can also schedule via your [employer] account. and Please avoid using public transportation per CDC recommendation. If you do not have personal transportation please self- quarantine until a personal transportation option is available. Standard Care Points -Get a COVID -19 vaccine as soon as you can if not fully vaccinated. -Wash hands frequently with soap and water, use hand record clerk salesperson if soap and water aren't available. -Wear a mask over your nose and mouth to help protect yourself and others if not fully vaccinated and having no symptoms -Stay 6 feet between yourself and others who don't live with you. -Avoid crowds and poorly ventilated indoor spaces. -Seek emergent care if any of the following occur Trouble breathing Bluish lips or face Persistent pain or pressure in the chest New confusion or inability to rouse. -Notify your regular care provider of any new or worsening symptoms. Symptomatic Carepoints: Stay home and separate yourself from others and stay in a specific sick room if able. Avoid sharing personal or household items. Rest. Hydrate. Take Acetaminophen/Ibuprofen asneeded to control fever and muscles aches. Use over the counter medications as needed for other symptoms. If you have received a negative COVID-19 test result and continue to have new or worsening symptoms after 72 hours please call the COVID Nurse Line to assess if you need repeat testing or reach out to your Primary Care Provider for guidance. Exposure Carepoints: If you are fully vaccinated (last dose was greater than 14 days) quarantine is not needed if you remain without symptoms. Education: Patient/caregiver able to teach back Patient agreeable to plan of care: Yes The following references were used: [facility] novel coronavirus (COVID- 19) resources Nursing judgement documented in 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 Plan of Treatment Not on filedocumented as of 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 Visit Diagnoses Not on filedocumented in 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 Additional Health Concerns Infection Onset Date Last Indicated Resolved Time COVID19 Pending 01/26/2021 01/26/2021 01/26/2021 8:39 PM CDT documented as of 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
--- OUTSIDE RECORDS SUMMARY | 2021-12-24 14:15 | XMS_ITS | Encounter Summary ---
:1985 Author Organization [facility] Address [address] [place] [address] Care Team Providers Name Role Phone Unavailable Primary Care Provider Unavailable Encounter Details Date Type Department Care Team Description 04/03/2020 Clinical Communication Department of [facility] in [place], [place] [address] [place] [address] Social History Tobacco Use Types Packs/Day Years Used Date Smoking Tobacco: Never Sex Assigned at Date Recorded Not on file documented as of 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 Plan of Treatment Not on filedocumented as of 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 Visit Diagnoses Not on filedocumented in 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 Additional Health Concerns Infection Onset Date Last Indicated Resolved Time COVID19 Pending 04/03/2020 04/03/2020 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
--- OUTSIDE RECORDS SUMMARY | 2021-12-24 14:15 | XMS_ITS | Encounter Summary ---
:1985 Author Organization [facility] Address [address] [place] [address] Care Team Providers Name Role Phone Unavailable Primary Care Provider Unavailable Encounter Details Date Type Department Care Team Description 10/30/2016 Hospital Encounter HX NO MAPPING Social History Tobacco Use Types Packs/Day Years Used Date Smoking Tobacco: Never Assessed Sex Assigned at Date Recorded Not on file documented as of 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 Plan of Treatment Not on filedocumented as of 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 Visit Diagnoses Not on filedocumented in 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
--- OUTSIDE RECORDS SUMMARY | 2021-12-24 14:15 | XMS_ITS | Encounter Summary ---
:1985 Author Organization [facility] Address [address] [place] [address] Care Team Providers Name Role Phone Unavailable Primary Care Provider Unavailable Encounter Details Date Type Department Care Team Description 03/06/2021 Orders Only [facility] Rigo Angela MD [address] [facility] [address] [place] [address] [place] [address] [phone] (Wo rk) Social History Tobacco Use Types [...] or relatives? How often do you attend yarsanism or church 1 to 4 times per year 04/17/2020 services? Do you belong to any clubs or organizations Yes 04/17/2020 such as yarsanism groups, unions, fraternal or athletic groups, or [...]
--- OUTSIDE RECORDS SUMMARY | 2021-12-24 14:15 | XMS_ITS | Encounter Summary ---
:1985 Author Organization [facility] Address [address] [place] [address] Care Team Providers Name Role Phone Kristi Dubois DNP, GALVANOMETER ASSEMBLER, SITE PLANNER Primary Care Provider [phone] Reason for Visit Reason Onset Date Comments rx renew 12/06/2018 Encounter Details Date Type Department Care Team Description 12/06/2018 Telephone Jones Carine Campos PA-C rx renew [address] [place] [address] Social History Tobacco Use Types Packs/Day [...] or relatives? How often do you attend presybeterian or uatsdin 1 to 4 times per year 04/17/2020 services? Do you belong to any clubs or organizations Yes 04/17/2020 such as presybeterian groups, unions, fraternal or athletic groups, or [...] 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 Miscellaneous Notes Telephone Encounter - Cheryl Casillas RN - 12/07/2018 2:51 PM CDT Left detailed message on identified voice mail that requested prescription was filled at [facility] pharmacy. Telephone Encounter - Carine Campos PA-C - 12/07/2018 2:38 PM CDT Medication refilled. Telephone Encounter - Cheryl Casillas RN - 12/06/2018 3:51 PM CDT Please send requested rx to [facility]. Telephone Encounter - Irene Busch - 12/06/2018 3:32 PM CDT Patient called to say she wanted it sent to [facility] [employer] [facility] in [place] Telephone Encounter - Eduarda Braga LPN - 12/06/2018 2:11 PM CDT Called patient to ask what pharmacy, [facility]. Telephone Encounter - Carine Campos PA-C - 12/06/2018 11:24 AM CDT I am happy to refill. Please let me know what pharmacy she would like it sent to. Telephone Encounter - Eduarda Braga LPN - 12/06/2018 9:51 AM CDT Carine could you please renew BC pill until she is in for her physical with you. Thank You:) I will charley it up! Telephone Encounter - Irene Narayan - 12/06/2018 9:21 AM CDT Patient is scheduled for physical with Carine on 03/14/19 but will run out of her BC before that. Can she please get it renewed to cover her for now? documented in 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 Plan of Treatment Not on filedocumented as of 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 Visit Diagnoses Diagnosis Encounter for surveillance of contracept sonal pills documented in 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 Care Teams Dry Pan Feeder Relationship Specialty Start Date End Date Kristi Dubois, SOFIE, GALVANOMETER ASSEMBLER, SITE PLANNER PCP - General 12/22/17 03/20/19 documented as of 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
--- OUTSIDE RECORDS SUMMARY | 2021-12-24 14:16 | XMS_ITS | Encounter Summary ---
:1985 Author Organization [facility] Address [address] [place] [address] Care Team Providers Name Role Phone Kristi Dubois DNP, SPECIAL CRIMES INVESTIGATOR, DOUGHNUT ICER MACHINE Primary Care Provider [phone] Encounter Details Date Type Department Care Team Description 03/11/2018 Travel Social History Tobacco Use Types Packs/Day Years [...] or relatives? How often do you attend methodist or pentecostal 1 to 4 times per year 04/17/2020 services? Do you belong to any clubs or organizations Yes 04/17/2020 such as methodist groups, unions, fraternal or athletic groups, or [...] on filedocumented in 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 Care Teams Spider Assembler Relationship Specialty Start Date End Date Kristi Dubois, DNP, SPECIAL CRIMES INVESTIGATOR, DOUGHNUT ICER MACHINE PCP - General 12/22/17 03/20/19 documented as of 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
--- OUTSIDE RECORDS SUMMARY | 2021-12-24 14:16 | XMS_ITS | Encounter Summary ---
:1985 Author Organization [facility] Address [address] [place] [address] Care Team Providers Name Role Phone Kristi Dubois DNP, LIBBY, WOOD MACHINE CARVER Primary Care Provider [phone] Reason for Visit Reason Comments Annual Exam Encounter Details Date Type Department Care Team Description 03/11/2018 Office Visit [place] Kristi Dubois, Annual physical exam (Primar y Dx); [address] DNP, KIER PLEATER, CN P Encounter for surveillance of contracept sonal pills; [address] Screening for diabetes mellitus; [place], [place] D[facility] S[facility]iqui Screening fo r hyperlipidemia [id number] Social History Tobacco Use Types Packs/Day Years [...] or relatives? How often do you attend worship or worship 1 to 4 times per year 04/17/2020 services? Do you belong to any clubs or organizations Yes 04/17/2020 such as worship groups, unions, fraternal or athletic groups, or [...] Sign Reading Time Taken Comments Blood Pressure 106/56 03/11/2018 9:37 AM CDT Pulse 78 03/11/2018 9:37 AM CDT Temperature 36.8 ??C (98.3 ??F) 03/11/2018 9:37 AM CDT Respiratory Rate 18 03/11/2018 9:37 AM CDT Oxygen Saturation 99% 03/11/2018 9:37 AM CDT Inhaled Oxygen Concentration - - Weight 89.8 kg (197 lb 14.4 oz) 03/11/2018 9:37 AM CDT Height 175.3 cm (5' 9.02) 03/11/2018 9:37 AM CDT Body Mass Index 29.21 03/11/2018 9:37 AM CDT documented in 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 Patient Instructions Patient InstructionsKristi Gonzalez, DNP, KIER PLEATER, WOOD MACHINE CARVER - 03/11/2018 9:40 AM CDT Images from the original note were not included. - Take supplement daily about 3 months before starting to try to get . - Stop zyrtec and NSAIDS while trying to get . Patient Education Preparing for If you are considering becoming , make an appointment to see your regular health care provider to learn how to prepare for a safe and healthy (preconception care). During a preconception care visit, your health care provider will: ?? Do a complete physical exam, including a Pap test. ?? Take a complete medical history. ?? Give you information, answer your questions, and help you resolve problems. Preconception checklist Medical history ?? Tell your health care provider about any current or past medical conditions. Your or your ability to become may be affected by chronic conditions, such as diabetes, chronic hypertension, and thyroid problems. ?? Include your family's medical history as well as your partner's medical history. ?? Tell your health care provider about any history of STIs (sexually transmitted infections).??These can affect your . In some cases, they can be passed to your baby. Discuss any concerns that you have about STIs. ?? If indicated, discuss the benefits of genetic testing. This testing will show whether there are any genetic conditions that may be passed from you or your partner to your baby. ?? Tell your health care provider about: ? Any problems you have had with conception or . ? Any medicines you take. These include vitamins, herbal supplements, and kccm-pwz-wuaxkxa medicines. ? Your history of immunizations. Discuss any vaccinations that you may need. Diet ?? Ask your health care provider what to include in a healthy diet that has a balance of nutrients. This is especially important when you are or preparing to become . ?? Ask your health care provider to help you reach a healthy weight before . ? If you are overweight, you may be at higher risk for certain complications, such as high blood pressure, diabetes, and . ? If you are underweight, you are more likely to have a baby who has a low weight. Lifestyle, work, and home ?? Let your health care provider know: ? About any lifestyle habits that you have, such as alcohol use, drug use, or smoking. ? About recreational activities that may put you at risk during , such as downhill skiing and certain exercise programs. ? Tell your health care provider about any international travel, especially any travel to places with an active Zika virus outbreak. ? About harmful substances that you may be exposed to at work or at home. These include chemicals, pesticides, radiation, or even litter boxes. ? If you do not feel safe at home. Mental health ?? Tell your health care provider about: ? Any history of mental health conditions, including feelings of depression, sadness, or anxiety. ? Any medicines that you take for a mental health condition. These include herbs and supplements. Home instructions to prepare for Lifestyle ?? Eat a balanced diet. This includes fresh fruits and vegetables, whole grains, lean meats, low-fatdairy products, healthy fats, and foods that are high in fiber. Ask to meet with a forensic engineer or registered dietitian for assistance with meal planning and goals. ?? Get regular exercise. Try to be active for at least 30 minutes a day on most days of the week. Ask your health care provider which activities are safe during . ?? Do not use any products that contain nicotine or tobacco, such as cigarettes and e-cigarettes. Ifyou need help quitting, ask your health care provider. ?? Do not drink alcohol. ?? Do not take illegal drugs. ?? Maintain a healthy weight. Ask your health care provider what weight range is right for you. General instructions ?? Keep an accurate record of your menstrual periods. This makes it easier for your health care provider to determine your baby's due date. ?? Begin taking vitamins and folic acid supplements daily as directed by your health care provider. ?? Manage any chronic conditions, such as high blood pressure and diabetes, as told by your health care provider. This is important. How do I know that I am ? You may be if you have been sexually active and you miss your period. Symptoms of early include: ?? Mild cramping. ?? Very light vaginal bleeding (spotting). ?? Feeling unusually tired. ?? Nausea and vomiting (morning sickness). If you have any of these symptoms and you suspect that you might be , you can take a home test. These tests check for a hormone in your urine (human chorionic gonadotropin, or hCG). Joses body begins to make this hormone during early . These tests are very accurate. Waituntil at least the first day after you miss your period to take one. If the test shows that you are (you get a positive result), call your health care provider to make an appointment for care. What should I do if I become ? ?? Make an appointment with your health care provider as soon as you suspect you are . ?? Do not use any products that contain nicotine, such as cigarettes, chewing tobacco, and e-cigarettes. If you need help quitting, ask your health care provider. ?? Do not drink alcoholic beverages. Alcohol is related to a number of defects. ?? Avoid toxic odors and chemicals. ?? You may continue to have sexual intercourse if it does not cause pain or other problems, such as vaginal bleeding. This information is not intended to replace advice given to you by your health care provider. Make sure you discuss any questions you have with your health care provider. Document Released: 04/16/2009 Document Revised: 12/30/2016 Document Reviewed: 11/23/2016 [employer] Interactive Patient Education ?? 2017 [employer]. documented in 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 Progress Notes Kristi Gonzalez DNP, LIBBY, SHARON - 03/11/2018 9:40 AM CDT Subjective Patient ID: Ivis Barros is a 32 y.o. female. Chief Complaint Patient presents with ??? Annual Exam HPI Ivis comes into the clinic today for an annual exam. She is requesting a refill of her control. She has not had any concerns with that. She does have a history of migraines, no history of aura. She has never had a blood clot and does not smoke. She is due for a Pap smear next year. She has noconcerns for STDs. She is in a safe, monogamous relationship. She has been trying to improve her exercise by going to a gym regularly. She is working at cooking all of her meals at home and trying to eat healthier. He denies any recreational drug use, or alcohol abuse. She and her are considering conceiving sometime within the next year. She does not believe that it is in the next 6 months yet. She is interested in information about preparing for . She has never had laboratory testing for cholesterol her blood glucose in the past. She does have a family history of high cholesterol. The following portions of the patient's chart were reviewed in 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 and updated as appropriate: Tobacco Allergies Meds Problems Med Hx Surg Hx Fam Hx Soc Hx Review of Systems Constitutional: Negative. HENT: Negative for ear pain. Eyes: Negative for pain and visual disturbance. Respiratory: Negative for cough, chest tightness and shortness of breath. Cardiovascular: Negative for chest pain, palpitations and leg swelling. Gastrointestinal: Negative for abdominal pain, blood in stool, constipation and diarrhea. Endocrine: Negative for cold intolerance, polydipsia and polyuria. Genitourinary: Negative for dyspareunia, dysuria, vaginal discharge and vaginal pain. Musculoskeletal: Negative for arthralgias and myalgias. Skin: Negative for rash. Neurological: Negative for seizures and headaches. Psychiatric/Behavioral: Negative. Objective Current Outpatient Medications Medication Sig Dispense Refill ??? neulqiv-hcvtsdlghtszk-pnlcwljl (EXCEDRIN MIGRAINE) 250-250-65 MG per tablet Take 1 tablet by mouth if needed (migraine) ??? cetirizine (ZyrTEC) 10 MG tablet Take by mouth 1 (one) time each day if needed for allergies ??? drospirenone-ethinyl estradiol (LUIS,GIANVI) 3-0.02 MG per tablet Take 1 tablet by mouth 1 (one) time each day 84 tablet 3 No current facility-administered medications for this visit. Vitals: 03/11/18 0937 BP: 106/56 Pulse: 78 Resp: 18 Temp: 36.8 ??C (98.3 ??F) SpO2: 99% Allergies: Amoxicillin and Morphine Patient declined welding engineer for breast exam. Physical Exam Constitutional: She appears well-developed and well-nourished. HENT: Head: Normocephalic. Right Ear: External ear normal. Left Ear: External ear normal. Eyes: Conjunctivae are normal. Pupils are equal, round, and reactive to light. Neck: No thyromegaly present. Cardiovascular: Normal rate, regular rhythm and normal heart sounds. Exam reveals no gallop and no friction rub. No murmur heard. Pulmonary/Chest: Effort normal. She has no wheezes. She has no rales. Right breast exhibits no inverted nipple, no mass, no nipple discharge, no skin change and no tenderness. Left breast exhibits no inverted nipple, no mass, no nipple discharge, no skin change and no tenderness. Abdominal: Soft. Bowel sounds are normal. She exhibits no mass. There is no tenderness. There is no rebound and no guarding. Genitourinary: Genitourinary Comments: Deferred, no concerns. Musculoskeletal: Normal range of motion. She exhibits no edema. Lymphadenopathy: She has no cervical adenopathy. Neurological: She is alert. No sensory deficit. Coordination normal. Skin: Skin is warm and dry. No rash noted. Psychiatric: She has a normal mood and affect. Nursing note and vitals reviewed. Assessment/Plan Diagnoses and all orders for this visit: Annual physical exam Encounter for surveillance of contraceptive pills - drospirenone-ethinyl estradiol (LUIS,GIANVI) 3-0.02 MG per tablet; Take 1 tablet by mouth 1 (one) time each day Screening for diabetes mellitus - HemoCue glucose; Future Screening for hyperlipidemia - Lipid panel; Future -Advised vitamin daily starting about 3 months before trying to conceive. Handout given. -Will follow up with her regarding lab results. Pap smear: due next year. Immunizations: up to date, declined flu STD screening: Declined. Do not smoke. Limit alcohol to 1 serving per day. Exercise at least 5 days per week for 30 minutes at a time. Wear your seatbelt. Apply sunscreen to exposed skin, SPF 15 when outside. Questions answered, patient verbalizes understanding and is in agreement with the plan of care. documented in 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 Plan of Treatment Not on filedocumented as of 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 Results HemoCue glucose (03/22/2018 8:35 AM LABORER CONSTRUCTION OR LEAK GANG) athologist Signature Glucose, Bld 98 70 - 100 03/22/2018 [facility] mg/dL 8:58 AM [facility] Comment: . Specimen Anatomical Collection Method Collection Time Receive d Time (Source) Location / / Volume Laterality Blood 03/22/2018 8:35 AM 8 8:35 [facility] [employer]STRUCTION OR LEAK GANG AM LAB[employer] CONSTRUCTION OR LEAK GANG Kristi Dubois DNP, KIER PLEATER, WOOD MACHINE CARVER LAB BLOOD ORDERABLES Performing Organization Address City/State/ZIP Code Phon e Number [facility] [address] [facility] [address] [place] [address] Lipid panel (03/22/2018 8:35 AM LABORER CONSTRUCTION OR LEAK GANG) athologist Signature Cholesterol 150 0 - 199 03/22/2018 [facility] mg/dL 12:59 PM [facility] Comment: Recommended by National Cholesterol Education Program (ATP III) -------- Cholesterol Ranges -------- <200 ? Desirable 200-239 ? Borderline high >=240 ? High Triglycerides 90 0 - 149 mg/dL 03/22/2018 12:[address] [facility] Comment: -------- TRIG Ranges -------- <150 ?Normal 150-199 ? Borderline high 200-499 ? High >=500 ? Very high HDL 54 40 - 60 mg/dL 03/22/2018 12:59 PM LABORER CONSTRUCTION OR [facility]AK G[facility] Comment: -------- HDL Ranges -------- <40 ?Low 40-59 ?Normal >=60 ? Optimal LDL Calculated 78 0 - 99 mg/dL 03/22/2018 12:[address] [facility] Comment: -------- LDL Ranges -------- <100 ? Optimal 100-129 ?Near optimal/above op timal 130-159 ?Borderline high 160-189 ?High >=190 ?Very high Fasting? Yes 03/22/2018 8:38 AM LABORER CONSTRUCTION OR LEAK G[facility] Specimen Anatomical Collection Method Collection Time Receive d Time (Source) Location / / Volume Laterality Blood (Blood, 03/22/2018 8:35 AM 03/22/20 18 Venous) LAB[facility] [employer]CTION [facility] LEAK GANG 12:20 PM LAB[facility]ER CONSTRUCTION OR LEAK GANG Kristi Dubois DNP, LIBBY, WOOD MACHINE CARVER LAB BLOOD ORDERABLES Performing Organization Address City/State/ZIP Code Phon e Number [facility] [address] [place] [address] documented in 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 Visit Diagnoses Diagnosis Annual physical exam - Primary Routine general medical examination at a health care facility Encounter for surveillance of contracept sonal pills Screening for diabetes mellitus Screening for hyperlipidemia Screening for lipoid disorders documented in 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 Care Teams Field Superintendent Relationship Specialty Start Date End Date Kristi Dubois DNP, KIER PLEATER, WOOD MACHINE CARVER PCP - General 12/22/17 03/20/19 documented as of 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
--- OUTSIDE RECORDS SUMMARY | 2021-12-24 14:16 | XMS_ITS | Encounter Summary ---
:1985 Author Organization [facility] Address [address] [place] [address] Care Team Providers Name Role Phone Kristi Dubois DNP, COUNTER ROLLER, ORCHID GROWER Primary Care Provider [phone] Encounter Details Date Type Department Care Team Description 03/08/2018 Abstract SE Family Med Kristi Dubois, SOFIE, [address] [facility] COUNTER ROLLER, [place] [address] [address] [facility] [phone] [place] [id number] Social History Tobacco Use Types Packs/Day Years Used Date Never Assessed Alcohol Habits Answer Date Recorded How often [...] or relatives? How often do you attend shinto or hindu 1 to 4 times per year 04/17/2020 services? Do you belong to any clubs or organizations Yes 04/17/2020 such as shinto groups, unions, fraternal or athletic groups, or [...] or getting things needed for daily living? Sex Assigned at Date Recorded Female 03/11/2018 9:45 AM CDT documented as of 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 Plan of Treatment Not on filedocumented as of 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 Visit Diagnoses Not on filedocumented in 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 Care Teams Social Staff Worker Relationship Specialty Start Date End Date Kristi Dubois, SOFIE, COUNTER ROLLER, ORCHID GROWER PCP - General 12/22/17 03/20/19 documented as of 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
== END 2021-12-02 09:33 | disposition home or self-care (01) ==
PROVIDERS: Visit Provider Obstetrics & Gynecology
DX: O40.9XX0 Polyhydramnios, unspecified trimester, not applicable or unspecified (principal)
CPT/HCPCS: 76819

== ENCOUNTER 2021-12-09 08:41 | Outpatient (CLI) | payer BC, SELFPAY ==
--- NOTE | 2021-12-09 09:15 | US_ITS ---
Final Report Patient: VITO BELL Facility:?[facility] Patient ID:?[id number] Site Patient ID:?[id number]. Site :?[id number] Study:?US OB Pelvis -12/09/2021 9:15:29 AM Ordering Physician:?Reid Gutierrez Final Report: INDICATION: Measuring large for dates, known polyhydramnios. TECHNIQUE: Ultrasound OB pelvis transabdominal. Real-time harris-scale imaging of the fetus was performed without stress testing. COMPARISON: Ultrasound 12/02/2021 and 11/25/2021 print FINDINGS: Sonographic imaging demonstrates a single living intrauterine gestation. Fetus demonstrates a regular cardiac rate of 133 beats per minute. Fetus has a vertex orientation. Amniotic fluid index is elevated measuring 30.5 cm, previously measuring 30.2 cm Placenta is posterior. Biometric measurements: Biparietal diameter: 9.7 cm, 39 week 5 day, 97th percentile. Head circumference: 35.2 cm, 41 weeks 0 day, 91st percentile. Abdominal circumference: 36.3 cm, 40 week 1 day, greater than 97th percentile. Femur length: 7.6 cm, 38 week 5 day, 67th percentile. Estimated weight: 3937 grams, 95th percentile. Estimated ultrasound age by today`s measurements is 39 weeks 6 day. Amniotic fluid volume appears normal. breathing movements, motion, and tone were all observed. IMPRESSION: Single viable intrauterine with a biophysical profile 8/8. Polyhydramnios similar to the prior exam. Estimated weight is 95th percentile. Abdominal circumference is greater than 97th percentile. Sonographic age is 12 days ahead of clinical age. Dictated by Dalton Cannon MD @ 12/09/2021 9:29:23 AM (Electronic Signature)
== END 2021-12-09 08:42 | disposition home or self-care (01) ==
LOC: US 08:42
PROVIDERS: Visit Provider Obstetrics & Gynecology
DX: O36.63X0 Maternal care for excessive fetal growth, third trimester, not applicable or unspecified (principal); O40.3XX0 Polyhydramnios, third trimester, not applicable or unspecified; Z3A.00 Weeks of gestation of pregnancy not specified
CPT/HCPCS: 76816; 76819

== ENCOUNTER 2021-12-16 08:28 | Outpatient (CLI) | payer BC, SELFPAY ==
--- NOTE | 2021-12-16 08:45 | CRLHL7_ITS ---
For Patients: As a result of the Century Cures Act, medical imaging exams and procedure reports are released immediately into your electronic medical record. You may view this report before your referring provider. If you have questions, please contact your health care provider. INDICATION: KNOWN POLYHYDRAMINOS, EXCESSIVE GROWTH COMPARISON: 12/09/2021, 12/02/2021 TECHNIQUE: Real time harris scale imaging of the fetus was performed. FINDINGS: Sonographic imaging demonstrates a single living intrauterine gestation. Fetus demonstrates a regular cardiac rate of 134 beats per minute. Fetus has a vertex position. The amniotic fluid volume appears increased and there is a single deepest pocket measurement of 10.2 cm. SANCHEZ 35.2 cm. The fetus was active and demonstrated normal breathing movements. There was normal flexion and extension of the trunk and extremities. IMPRESSION: Normal biophysical profile score of 8 out of 8. Polyhydramnios with SANCHEZ increased from prior, now measuring 35.2 cm (previously 30.5 cm). Dictated by Erlin Barragan MD @ 12/16/2021 9:33:43 AM (Electronically Signed)
== END 2021-12-16 08:29 | disposition home or self-care (01) ==
LOC: US 08:29
PROVIDERS: Visit Provider Obstetrics & Gynecology
DX: O36.63X0 Maternal care for excessive fetal growth, third trimester, not applicable or unspecified (principal)
CPT/HCPCS: 76819

== ENCOUNTER 2021-12-17 12:23 | Inpatient (IN) | payer BC, SELFPAY ==
[2021-12-17] VITALS (41 sets, daily range): BP systolic 102–140; BP diastolic 63–96; PULSE 60–101; RESP 16–18; TEMP 36.6–37.2; O2SAT 93–100; BMI 36.3
[2021-12-17 12:41] LABS: Basophils Percent Auto 0.1 % (0.0-3.0); Eosinophils Percent Auto 0.4 % (0.0-7.0); Hematocrit 41.5 % (33.0-51.0); Immature Granulocytes Abs Auto 0.03 K/uL (0.00-0.30); Lymphocytes Percent Auto 7.7 % (20-44); Mean Corpuscular HGB Conc 34 gm/dL (32-36); Mean Corpuscular Hemoglobin 29 pg (26-34); Mean Corpuscular Volume 85 fL (80-100); Monocytes Percent Auto 5.9 % (0.0-11.0); Neutrophils Percent Auto 85.7 % (42.0-72.0); Platelet Count* 192 K/uL (140-440); RDW Coefficient of Variation % 17.4 % (11.5-15.5); Red Blood Count 4.86 m/uL (4.00-5.20); White Blood Count* 16.73 K/uL (4.50-11.00)
[2021-12-17 12:53] LABS: Slide Review Reflex No
[2021-12-17] MEDS: LACTATED RINGERS 1000 ML 1,000 ML 125 ML IV (13:00)
--- NOTE | 2021-12-17 13:24 | P.LDBA_ITS ---
Subjective History of Present Illness Narrative: Patient is being admitted to Labor and Delivery for spontaneous labor with SROM. She is a 36 year old at 39 weeks 2 days gestation. Her full history and physical was dictated by Dr. Mathews on 12/02/2021. Please see this for details. Reports contractions starting at 8:00am and SROM at 11:05am. Accompanied by , William. Open to epidural if needed. Coping well with labor. Plans to breastfeed. OB Problem List 1. Obesity Hemoglobin A1c: 5.6% 06/17/2021 at her 2nd Ob visit Hgb A1C: 5.7% 20 wk 1hr GTT 08/05/21: 91 Twenty-eight week 1 hour GTT 09/30/2021: 85 Consider 81 mg of aspirin starting at 12 weeks 2. Suspected macrosomia. USN 11/25/2021: EFW 3524 g, 7 lb 12 oz >97%. SDP 9.0, SANCHEZ 31.6cm = mild polyhydramnios. BPD >97%, HC 88%, AC>97%, FL 90%. 12/02/21: BPP: 12/23, SDP 11.4cm, SANCHEZ 30.2cm. 12/09/21: EFW 8 lbs 11 oz, 95%. BPD 97%, HC 91%, AC>97%, FL 67%. SANCHEZ 30.5 cm. --Weekly BPP ordered on 12/02/21 --12/02/21 Offered IOL [id number] vs elective primary LTCS 2. Migraine 3. Anemia, hemoglobin 10.3 at 28 weeks Ferrous sulfate Repeat at 36 weeks: 12.5 4. Polyhydramnios, SANCHEZ 31.6 --Per ACOG, IOL 39 0/7 - 40 6/7 recommended, with weekly testing until delivery --Weekly BPP with SANCHEZ until delivery. --12/09/21: 88, SANCHEZ 30 --IOL scheduled for 12/18/21 OB - H&P: Exam Physical Exam: Vital signs: Pulse BP 81 135/84 12/17/21 12:05 12/17/21 12:05 Constitutional: Constitutional: moderate distress and cooperative Comments: Laboring, breathing through contractions Routine HEENT Exam: Head: Present normocephalic Routine Neck Exam: Neck: Present full ROM Routine Respiratory Exam: Respiratory: Present CTA bilaterally Routine Cardiovascular Exam: Cardiovascular: RRR Routine Abdominal Exam: Comments: Gravid Detailed Labor and Delivery Exam: Patient Gravid: yes Dilation (cm): 6 Effacement (%): 90 Contraction intensity: Strong/Firm Fetus (Single): Station: -2 Amniotic Membrane Status: SROM Amniotic Membrane Fluid Description: Clear Heart Rate Baseline: 135 Monitor Accelerations: Present Monitor Decelerations: None [place] [employer] Variability: Average (6-10) (Moderate variability) Routine Back/Spine/Pelvis Exam: Back/Spine: full ROM Routine Skin Exam: Present intact and warm Routine Neurological Exam: Present alert and oriented X3 Routine Psychiatric Exam: Present normal affect and normal thought process OB - Problem Based A/P Additional Plan (1) Active labor at term: Status: Acute (2) Polyhydramnios: Status: Acute (3) Class 1 obesity: Status: Acute (4) : Status: Acute (5) Spontaneous rupture of amniotic membranes: Status: Acute (6) Uterine contractions at greater than 20 weeks of gestation: Status: Acute Plan Assessment: 36 yo @ 39w 2d Admit for Labor Active Labor SROM, clear fluid Polyhydramnios GBS Negative CE: 6cm 90% -1 EFM:Cat 1 Plan: Intrapartum care orders per protocol Expectant management, continuous monitoring d/t Polyhydramnios Patient coping well with labor, plans unmedicated but open to epidural. Ok for labor analgesic of choice. Anticipate . Delivery/Labor/Induction Plan Plan: expectant management
[2021-12-17] MEDS: fentaNYL 100 MCG/2 ML inj IVP (13:48)
[2021-12-17] MEDS: LIDOCAINE 2% (PF) 5 ML VIAL EPIDURAL (13:49)
[2021-12-17] MEDS: ROPIVACAINE 0.2% 100 ml 100 ML 12 MG EPIDURAL (13:49)
--- NOTE | 2021-12-17 13:54 | P.ANBPRC_ITS ---
[facility] Medical History (Updated 12/02/21 @ 11:08 by Brenda Mathews MD) macrosomia affecting management of mother, antepartum Finger amputation, traumatic (~2018) Ingrown nail Polyhydramnios Surgical History (Updated 12/02/21 @ 11:07 by Brenda Mathews MD) H/O wisdom tooth extraction (~2005) History of laparoscopy (~2007) Social History Smoking Status: Never smoker Meds Home Medications and Allergies Home Medications Medication Instructions Recorded Confirmed Type docosahexaenoic acid 200 mg mg PO DAILY 11/12/21 12/16/21 History capsule ( DHA) ferrous fumarate 89 mg (29 mg 89 mg PO QDAY 11/12/21 12/17/21 History iron) tablet Allergies Allergy/AdvReac Type Severity Reaction Status Date / Time amoxicillin Allergy Mild Rash Verified 12/16/21 09:39 morphine Allergy Mild Faint Verified 12/16/21 09:39 Results Labs Labs: Laboratory Results - last 24 hr 12/17/21 12:30 WBC 16.73 H RBC 4.86 Hgb 14.0 Hct 41.5 MCV 85 MCH 29 MCHC 34 RDW Coeff of Daniella 17.4 H Plt Count 192 Neut % (Auto) 85.7 H Lymph % (Auto) 7.7 L [place] % (Auto) 5.9 Eos % (Auto) 0.4 Baso % (Auto) 0.1 Neut # (Auto) 14.30 H Lymph # (Auto) 1.30 [place] # (Auto) 1.00 H Eos # (Auto) 0.10 Baso # (Auto) 0.00 Abs Immat Gran (auto) 0.03 Vital Signs Vital Signs: Last Vital Signs Pulse 71 12/17/21 13:52 BP 128/70 12/17/21 13:52 Pulse Ox 100 12/17/21 13:50 Anesthesia Procedures Epidural Insertion Patient Location: OB Reason for Block: primary anesthetic Patient Position: sitting Performed By: Vitor Stearns Preanesthetic Checklist: IV checked, risks and benefits discussed, surgical consent, monitors and equipment checked, pre-op evaluation, timeout performed and anesthesia consent Prep: chlorhexidine gluconate Monitoring: blood pressure monitoring, monitoring and evaluation advisor, continuous pulse oximetry and heart rate Approach: midline Vertebral Space: lumbar (1-5) Needle Type: Tuohy needle Injection Technique: continuous catheter (catheter) Needle gauge: 17 Needle Length (cm): 10 cm Needle Insertion Depth (cm): 5 Catheter Gauge: 19 Catheter Type: multi-orifice Catheter at skin depth (cm): 10 Test Dose Result: negative and lidocaine 1.5% with epinephrine 1 to 200,000
[2021-12-17 15:48] LABS: SARS PCR* Negative SARS-CoV-2 (Negative)
--- NOTE | 2021-12-17 18:43 | P.OBPRC_ITS ---
Procedure Delivery date: 12/17/21 Procedure Done: Global Events: Polyhydramnios Delivery monitor: external FHT and external uterine Route of delivery: Laceration description: Perineal - 2nd Degree Delivery repair: Vicryl Estimated blood loss (mL): 562 Anesthesia type: Epidural Narrative: The patient is a 36 year-old now P1 admitted on at 39 Weeks, 2 Days gestation for active labor.? Cervical exam on admission was 6 cm/90 % effaced/-1 station with membranes ruptured in vertex presentation.? Contractions were every 2 minutes.? heart rate demonstrated baseline 135 bpm with moderate variability, + accelerations, - decelerations; a category 1 tracing.? SROM occurred at 11:05am with clear fluid. ? Labor Analgesia:? Epidural ? Pitocin:? Yes, only AMSTL ? Labor onset:? 12:30pm ? Complete:? 3:50pm ? Pushing:? 3:55pm ? heart tones during second stage were Category 2 with intermittent decels during pushing with good return to baseline. ? Labor progressed spontaneously. Patient comfortable with epidural. Patient complete at 3:50pm and pushing at 3:55pm. of a viable female at 5:14pm. Vertex delivered OA. No nuchal cord or shoulder. Body delivered easily and without incident. passed to mothers abdomen, dried, stimulated and bulb suctioned. No cry with stimulation, poor tone. Cord was clamped and cut at <1 minutes. taken to warmer, handed off to nurses. APGARS were 5 at one minute and 9 at five minutes respectively. Baby required CPAP and deep whiting ctioning, remained at warmer for monitoring. Intact placenta with a 3 vessel cord delivered spontaneous at 5:16pm, pitocin for AMTSL. Fundus firm with continuous trickling noted with repair. Fundal massage and cytotec. 2nd degree perineal identified and repaired in typical fashion. Bladder emptied with intermittent catheter. QBL 562 cc. Mother and baby stable, baby returned to mom after repair. Mother plans to breastfeed. weight pending. Placenta delivered spontaneously and complete at 5:16pm with a 3 vessel cord. ? Mother and were stable after delivery. ? Lacerations:? 2nd Degree Perineal, repaired with 3.0 Vicryl. ? Blood loss: 562 mL. Blood loss measurement type: QBL ? Sponge and needles counts are correct. [place] Infant Gender: Female presentation: vertex Placental Delivery Description: Spontaneous Cord Description: 3 Vessels OB Vag Delivery Procedures Additional Procedures ECV: No Cook Catheter Insertion: No NST: No D&C: No Laceration Repair: Yes Tubal Ligation : No Other: No
[2021-12-18 00:07] VITALS: BP 110/69; PULSE 84; RESP 18; TEMP 36.5; O2SAT 96
[2021-12-18 04:13] VITALS: BP 108/71; PULSE 80; RESP 18; TEMP 36.6; O2SAT 97
[2021-12-18 09:01] VITALS: BP 124/77; PULSE 87; RESP 18; TEMP 36.6; O2SAT 96
[2021-12-18 12:20] VITALS: BP 103/65; PULSE 66; RESP 18; TEMP 36.8; O2SAT 96
[2021-12-18 16:53] VITALS: BP 111/73; PULSE 66; RESP 18; TEMP 36.6; O2SAT 97
--- NOTE | 2021-12-18 18:54 | P.OBPN_ITS ---
OB - PN:Subj Subjective Time Seen by Provider: 08:30 Date Seen: 12/18/21 Patient comments OB post-: no complaints, pain well controlled and tolerating diet [place] infant status: [place] feeding status: exclusively Narrative: Ivis is a who had an NVD yesterday. She was admitted for labor/SROM. Doing well today. Pain well controlled with current medications. Voiding w/o difficulty. VSS, afebrile. , which is going ok. OB - PN: Obj Exam Physical Exam: Vital signs: Temp Pulse Resp BP Pulse Ox O2 Del Method 98 F 66 18 111/73 97 12/18/21 16:53 12/18/21 16:53 12/18/21 16:53 12/18/21 16:53 12/18/21 16:53 12/18/21 16:53 Constitutional: Constitutional: no acute distress and cooperative Routine HEENT Exam: Head: Present normocephalic Routine Neck Exam: Neck: Present full ROM Routine Respiratory Exam: Respiratory: Present CTA bilaterally Routine Cardiovascular Exam: Cardiovascular: Present RRR Routine Abdominal Exam: Abdominal: Present normal bowel sounds Fundus: Present firm (1 below U) Routine Exam: Perineum Description: Edematous (mild) and Hematoma (None noted externally. Internal noted w/ delivery. ) Routine Extremities Exam: Extremities: Present full ROM; Absent pedal edema Routine Back/Spine/Pelvis Exam: Back/Spine: Present full ROM Routine Skin Exam: Skin: Present dry, intact and normal color Routine Psychiatric Exam: Psychiatric: Present normal affect OB - PN: A/P Vaginal Delivery Assessment and Plan (1) Active labor at term: Status: Acute (2) Polyhydramnios: Status: Acute (3) Class 1 obesity: Status: Acute (4) : Status: Acute (5) Spontaneous rupture of amniotic membranes: Status: Acute (6) Uterine contractions at greater than 20 weeks of gestation: Status: Acute Plan Continue routine PP care. , may see and works with RNs for support. Internal hematomas noted w/ delivery. Externally perineum WNL, mild edema. Reviewed w/ pt signs of worsening hematomas, will notify RN of increasing pressure or pain vaginally. Anticipate discharge home tomorrow. Plan day: 1 Plan: routine care
[2021-12-19 00:04] VITALS: BP 124/86; PULSE 85; RESP 18; TEMP 36.6; O2SAT 97
[2021-12-19 07:46] VITALS: BP 117/75; PULSE 71; RESP 18; TEMP 36.6; O2SAT 96
--- NOTE | 2021-12-19 07:46 | P.DS_ITS ---
DS: Providers Provider Date Seen: 12/19/21 Date of admission: 12/17/21 12:23 Primary care physician: Not a Local Provider Admitting Clinician: Suzanne Escobar CNM Attending Physician on discharge: Suzanne Escobar CNM Date of Discharge: 12/19/21 Exam Const: Vital Signs, click to edit/add: Vital Signs - 24 hr 12/18/21 09:01 12/18/21 12:20 12/18/21 16:53 Temperature 97.9 F 98.2 F 98 F Pulse Rate [Pulse Oximeter] 87 66 66 Respiratory Rate 18 18 18 Blood Pressure [Le ft Arm] 124/77 103/65 111/73 Pulse Oximetry 96 96 97 Oxygen Delivery Me thod Room Air Room Air Room Air 12/19/21 00:04 Temperature 98 F Pulse Rate [Pulse Oximeter] 85 Respiratory Rate 18 Blood Pressure [Le ft Arm] 124/86 Pulse Oximetry 97 Oxygen Delivery Me thod Room Air Documenting provider has reviewed patient's vital signs: yes Common normals: no apparent distress, average body habitus, oriented x3, no limit ations, healthy appearing, alert and well nourished HENMT: Common normals: hearing grossly normal bilaterally Head and scalp: normal to inspection Face and sinus: normal facial exam Eye: General eye: normal appearance of both eyes Neck & C-Spine: Common normals: full ROM and no JVD Resp: Common normals: normal respiratory effort, no retractions, no use of accessory muscles and clear to auscultation bilaterally Auscultation: clear to auscultation bilaterally Cardio: Common normals: no JVD, regular rate, regular rhythm, S1 normal heart sound, S2 normal heart sound, no gallops, no clicks, no murmurs and no rub Rate: regular rate Rhythm: regular rhythm Heart sounds: S1 normal and S2 normal GI: Common normals: Normal to inspection, nondistended, normoactive bowel sounds present : Uterus: U/1 Lochia: small Extremity: Common normals: full ROM Neuro: Common normals: oriented x3 Sensorium/orientation: alert Psych: Common normals: mental status grossly normal OB - DS: Summary Hospital Course Hospital Course: The patient is a 36 year old G 1 P 1 at 39.4 weeks gestation that was admitted to the Center on 12/17/21 for SROM. She had an uncomplicated vaginal delivery. She delivered a viable [male/female] infant. She is breast feeding. She states that it greatly improved overnight and that she is now ready for discharge. the patient has done well. Peripartum Data Infant delivery method: Vaginal Laceration description: Perineal - 2nd Degree complications: other (internal vaginal hematomas noted after delivery. No increased pain.) Infant Gender: Female Discharge Plan: Home Status at Discharge Functional status at discharge: independent ambulation Overall status at discharge: patient is progressing back to baseline Time Spent with Patient Time attestation: Total time spent providing and/or coordinating discharge services: Discharge Plan Discharge Disposition: Home, Self-Care Date of Admission: 12/17/21 12:23 Primary Care Provider: Provider,Not a Local Condition: Stable Anticipated Discharge Date/Time: 12/19/21 11:00 Discharge Medications: Continued DHA 200 mg capsule 200 mg PO DAILY Discontinued ferrous fumarate 89 mg (29 mg iron) tablet 89 mg PO QDAY Discharge Orders: Discharge Order (Routine); Ordered 12/19/21 Ordered By: Anali Das Patient Education: OB Vaginal/Breast Feeding Activity Restrictions/Additional Instructions: Discharge Criteria? Patient has no complaints? Doing well? She is requesting discharge home.? ? ? Discharge Education? Nothing in the vagina for 6 weeks ? Discharge instructions were reviewed with the patient including signs and symptoms of infection and home going medications.? Off Work or School for 6 weeks.? ?? Symptoms to report to doctor:? -Bleeding that saturates more than one pad per hour? -Passing clots larger than the size of a golf ball? -Pain not relieved by prescribed medication? -Fever above 100.4 degrees Fahrenheit? -A foul vaginal odor? -Difficulty in emotions, mood and functions? -Thoughts of hurting yourself and/or ? -Painful, reddened area in your breast? -Any drainage, redness or tenderness in your IV/epidural site? -Severe headache that doesn't improve after taking medications? -Changes in vision, including temporary loss of vision, blurred vision, and/or light sensitivity? -Upper abdominal pain (usually under ribs on the right side)? -Decrease in urination or painful, frequent urinating? -Chest pain? -Shortness of breath? -Tenderness or pain with redness and/swelling in the calf(s) of your leg? ?? Follow Up in clinic in 2 and 6 weeks.? ?? consultation services are available to all mothers and babies for the first year after delivery.? To make an appointment, please call [phone].? Activity Level: No Restrictions Discharge Diet: Regular Follow Up Appointments: Provider,Not a Local [Primary Care Provider] - Forms: MyHealth Info Instructions
--- OUTSIDE RECORDS SUMMARY | 2021-12-24 21:56 | XMS_ITS | Encounter Summary ---
:1985 Author Organization [facility] Address [address] [place] [address] Care Team Providers Name Role Phone Kristi Dubois DNP, TAKE UP SUPERVISOR, CYTOTECHNOLOGIST/CYTOLOGY SUPERVISOR Primary Care Provider [phone] Reason for Visit Reason Onset Date Comments rx renew 12/06/2018 Encounter Details Date Type Department Care Team Description 12/06/2018 Telephone [place] Carine Campos PA-C rx renew [address] [place] [address] Social History Tobacco Use Types Packs/Day [...] or relatives? How often do you attend adventist or sabianist 1 to 4 times per year 04/17/2020 services? Do you belong to any clubs or organizations Yes 04/17/2020 such as adventist groups, unions, fraternal or athletic groups, or [...] mail that requested prescription was filled at [facility] pharmacy. Telephone Encounter - Carine Campos PA-C - 12/07/2018 2:38 PM CDT Medication refilled. Telephone Encounter - Cheryl Casillas RN - 12/06/2018 3:51 PM CDT Please send requested rx to [facility]. Telephone Encounter - Irene Busch - 12/06/2018 3:32 PM CDT Patient called to say she wanted it sent to [facility] [place] Telephone Encounter - Eduarda Braga LPN - [...] pills documented in 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 Care Teams Slitting Machine Feeder Relationship Specialty Start Date End Date Kristi Dubois, SOFIE, TAKE UP SUPERVISOR, CYTOTECHNOLOGIST/CYTOLOGY SUPERVISOR PCP - General 12/22/17 03/20/19 documented as of 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
--- OUTSIDE RECORDS SUMMARY | 2021-12-24 21:56 | XMS_ITS | Encounter Summary ---
:1985 Author Organization Address [address] [place] [address] Care Team Providers Name Role Phone Carine Campos PA-C Primary Care Provider Unavailable Encounter Details Date Type Department Care Team Description 12/06/2018 Telephone [place] Cairne Campos PA-C [address] [place] [address] [address] [place], [place] [address] Social History Tobacco Use Types [...] or relatives? How often do you attend latter day or roman catholic 1 to 4 times per year 04/17/2020 services? Do you belong to any clubs or organizations Yes 04/17/2020 such as latter day groups, unions, fraternal or athletic groups, or [...] on filedocumented in 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 Care Teams Software Analyst Relationship Specialty Start Date End Date Carine Campos PA-C PCP - General Family Medicine 03/21/1907/16 documented as of 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
--- OUTSIDE RECORDS SUMMARY | 2021-12-24 21:56 | XMS_ITS | Encounter Summary ---
:1985 Author Organization [facility] Address [address] [place] [address] Care Team Providers Name Role Phone Carine Campos PA-C Primary Care Provider Unavailable Reason for Visit Reason Onset Date Comments refill request 04/06/2020 Encounter Details Date Type Department Care Team Description 04/06/2020 Telephone [place] Carine Campos PA-C refill request [address] [facility] [address] [place], [place] [address] Social History Tobacco Use Types [...] or relatives? How often do you attend jewish or gnosticism 1 to 4 times per year 04/17/2020 services? Do you belong to any clubs or organizations Yes 04/17/2020 such as jewish groups, unions, fraternal or athletic groups, or [...] PA-C - 04/06/2020 7:03 PM CST Refilled. H C[employer]TER CONTACT WHEEL Telephone Encounter - Svetlana Paredes RN - 04/06/2020 2:38 PM CST Last office visit 03/21/2019, last refill 03/21/2019, please advise H CUTTER CONTACT WHEEL Telephone Encounter - Rosita Glass - 04/06/2020 11:50 AM CST drospirenone-ethinyl estradiol (RAJI SMITH) 3-0.02 MG per tablet Take 1 tablet by mouth 1 (one) time each day Devan Bansal Pt has apt on 04/17 H C[employer] CONTACT WHEEL documented in 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 Plan of Treatment Not on filedocumented as of 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 Visit Diagnoses Diagnosis Encounter for surveillance of contracept sonal pills documented in 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 Care Teams Intelligence Operations Specialist Relationship Specialty Start Date End Date Carine Campos PA-C PCP - General Family Medicine 03/21/1907/16 documented as of 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
--- OUTSIDE RECORDS SUMMARY | 2021-12-24 21:56 | XMS_ITS | Clinical Summary ---
:1985 Author Organization [facility] Address [address] [place] [address] Care Team Providers Name Role Phone Unavailable [...] or relatives? How often do you attend buddhist or quaker 1 to 4 times per year 04/17/2020 services? Do you belong to any clubs or organizations Yes 04/17/2020 such as buddhist groups, unions, fraternal or athletic groups, or [...] Comments Blood Pressure 120/84 04/17/2020 2:29 PM SALES AND SERVICE SPECIALIST Pulse 72 04/17/2020 2:29 PM SALES AND SERVICE SPECIALIST Temperature 36.1 ??C (97 ??F) 04/17/2020 2:29 PM SALES AND SERVICE SPECIALIST Respiratory Rate 18 04/17/2020 2:29 PM SALES AND SERVICE SPECIALIST Oxygen Saturation 99% 04/17/2020 2:29 PM SALES AND SERVICE SPECIALIST Inhaled Oxygen Concentration - - Weight 99.6 kg (219 lb 9.6 oz) 04/17/2020 2:29 PM SALES AND SERVICE SPECIALIST Height 176.5 cm (5' 9.49) 04/17/2020 2:29 PM SALES AND SERVICE SPECIALIST Body Mass Index 31.98 04/17/2020 2:29 PM SALES AND SERVICE SPECIALIST Plan of Treatment Health Maintenance Due Date Last Done Comments COVID-19 Vaccine (3 - Booster 02/04/2021 09/04/2020, for Pfizer series) 08/09/2020 Pap Smear 03/21/2022 03/21/2019, 02/13/2016 [facility]neumococcal Vaccine: 65+ 10/21/2052 Years (1 - PCV) HPV Vaccines Aged Out No longer eligib le based on patient's age to complete this to [facility] Pneumococcal Vaccine: <64 Aged Out No longer eligible based on patient's age to complete this to [facility] Insurance Payer Benefit Plan / Subscriber ID Effective Dates Phone Addre ss Type Group BCBS OF BCBS OF [id number] 2017-[place] [id number] [place] [address] (Home) [place] [id number]
--- OUTSIDE RECORDS SUMMARY | 2021-12-24 21:56 | XMS_ITS | Encounter Summary ---
:[address] [facility] Address [address] [place] [address] Care Team Providers Name Role Phone Carine Campos PA-C Primary Care Provider Unavailable Reason for Visit Reason Comments Annual Exam Encounter Details Date Type Department Care Team Description 04/17/2020 Office Visit [place] Carine Campos, Well woman exam (Primary Dx) ; [address] Class 1 obesity due to exces s calories without serious comorbidity with body mass index (BMI) of 31.0 to 31.9 in adult; [place], [place] [address] Encounter for surveillance o f contraceptive pills; [phone] Influenza vacci nation declined Social History Tobacco Use Types Packs/Day Years [...] or relatives? How often do you attend holiness or nondenominational 1 to 4 times per year 04/17/2020 services? Do you belong to any clubs or organizations Yes 04/17/2020 such as holiness groups, unions, fraternal or athletic groups, or [...] Comments Blood Pressure 120/84 04/17/2020 2:29 PM DIRECTOR NETWORK DEVELOPMENT Pulse 72 04/17/2020 2:29 PM DIRECTOR NETWORK DEVELOPMENT Temperature 36.1 ??C (97 ??F) 04/17/2020 2:29 PM DIRECTOR NETWORK DEVELOPMENT Respiratory Rate 18 04/17/2020 2:29 PM DIRECTOR NETWORK DEVELOPMENT Oxygen Saturation 99% 04/17/2020 2:29 PM DIRECTOR NETWORK DEVELOPMENT Inhaled Oxygen Concentration - - Weight 99.6 kg (219 lb 9.6 oz) 04/17/2020 2:29 PM DIRECTOR NETWORK DEVELOPMENT Height 176.5 cm (5' 9.49) 04/17/2020 2:29 PM DIRECTOR NETWORK DEVELOPMENT Body Mass Index 31.98 04/17/2020 2:29 PM DIRECTOR NETWORK DEVELOPMENT documented in 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 Patient Instructions Patient InstructionsCarine Campos PA-C - 04/17/2020 2:40 PM CST For maintaining your health: - Recommend BMI between 20 and 25; if you are above this, try to lose 10% of your body weight yearlythrough healthy lifestyle choices rather than fad dieting. - Recommend diet rich in fruits and vegetables, try for 5 a day; limit saturated fats including red meats of pork, beef, poultry with the skin on. - Exercise 3-5 times a week for 30 minutes. This can be broken into 10 minute chunks and still get the same benefit. Exercise is anything in which you break a sweat. - Drink 6-8 eight ounce glasses of water daily; limit sugary drinks. - Goal is to sleep 7-8 hours a night and feel rested in the morning. - Recommend regular use of sunscreen. - Avoid all tobacco products. - Alcohol should be limited to no more than 2 drinks a day for men and 1 drink a day for women. - Make sure you have a functioning smoke alarm and carbon dioxide detector in your home. CTOR NETWORK DEVELOPMENT documented in 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 Progress Notes Carine Campos PA-C - 04/17/2020 2:40 PM CST Subjective Patient ID: Ivis Barros is a 34 y.o. female. Chief Complaint Patient presents with ??? Annual Exam HPI Patient presents today for annual exam. She has no questions or concerns today. 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 She needs a refill of her oral contraceptive pill. Periods are regular. No contraindications to OCP including history of migraine with aura, bleeding disorder, tobacco use. Patient and her plan on having children but are not yet trying to conceive. Denies irrregular bleeding, discharge, or sexually health concerns. Last pap smear done one year ago and normal. Has an aunt who was diagnosed with breast cancer in her 50s. No family history of other gynecologic cancers or colon cancer. Admits to being less physically active during the pandemic. She does enjoy hiking. She states that she feels that she needs to lose some weight. Admits to eating too many sweets. BMI 31.9. Weight unchanged from one year ago. She does get occasional migraines without aura, about once a month. Controlled with Excedrin. She takes occasional Zyrtec for seasonal allergies. No other questions or concerns today. 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 See above. Current Outpatient Medications: ??? bcinktt-wjpxlgxoazsxj-wjbquhcf (EXCEDRIN MIGRAINE) 250-250-65 MG per tablet, Take 1 tablet by mouth if needed (migraine) , Disp: , Rfl: ??? cetirizine (ZyrTEC) 10 MG tablet, Take by mouth 1 (one) time each day if needed for allergies, Disp: , Rfl: ??? drospirenone-ethinyl estradiol (LUIS) 3-0.02 MG per tablet, Take 1 tablet by mouth 1 (one) time each day, Disp: 84 tablet, Rfl: 3 Allergies as of 04/17/2020 - Reviewed 04/17/2020 Allergen Reaction Noted ??? Amoxicillin Rash ??? [...] of children: 0 ??? Years of education: 16 ??? Highest education level: Bachelor's degree (e.g., BA, AB, BS) Occupational History ??? Occupation: [employer] Comment: [employer] Social Needs ??? Financial resource strain: Not hard at all ??? Food insecurity Worry: Never true Inability: Never true ??? Transportation needs Medical: No Non-medical: No Tobacco Use ??? Smoking status: Never Smoker ??? Smokeless tobacco: Never Used Substance and Sexual Activity ??? Alcohol use: Yes Alcohol/week: 2.0 standard drinks Types: 1 Glasses of wine, 1 Cans of beer per week Frequency: 2-4 times a month Drinks per session: 1 or 2 Binge frequency: Less than monthly ??? Drug use: No ??? Sexual activity: Yes Partners: Male control/protection: OCP Lifestyle ??? Physical activity Days per week: 0 days Minutes per session: 0 min ??? Stress: To some extent Relationships ??? Social connections Talks on phone: Twice a week Gets together: Once a week Attends nondenominational service: 1 to 4 times per year Active member of club or organization: Yes Attends meetings of clubs or organizations: More than 4 times per year Relationship status: ??? Intimate partner violence Fear of current or ex partner: No Emotionally abused: No Physically abused: No Forced sexual activity: No Other Topics Concern ??? None Social History Narrative WEARS SEATBELT Review of Systems HEENT, Eyes, respiratory, cardio, GI, genitourinary, endocrine, musculoskeletal, neurologic and psychiatric history were reviewed and negative except as per HPI. Immunization History Administered Date(s) Administered ??? Tdap 09/29/2016 Objective Visit Vitals BP 120/84 Pulse 72 Temp 36.1 ??C (97 ??F) (Temporal) Resp 18 Ht 1.765 m (5' 9.49) Wt 99.6 kg (219 lb 9.6 oz) SpO2 99% BMI 31.98 kg/m?? Smoking Status Never Smoker BSA 2.21 m?? Physical Exam Vitals signs and nursing note reviewed. Constitutional: General: She is not in acute distress. Appearance: Normal appearance. She is well-developed. HENT: Head: Normocephalic and atraumatic. Right Ear: Tympanic membrane, ear canal and external ear normal. Left Ear: Tympanic membrane, ear canal and external ear normal. Nose: Nose normal. No congestion or rhinorrhea. Mouth/Throat: Mouth: Mucous membranes are moist. Pharynx: Oropharynx is clear. No oropharyngeal exudate or posterior oropharyngeal erythema. Eyes: Extraocular Movements: Extraocular movements intact. Conjunctiva/sclera: Conjunctivae normal. Pupils: Pupils are equal, round, and reactive to light. Neck: Musculoskeletal: Normal range of motion and neck supple. Thyroid: No thyromegaly. Cardiovascular: Rate and Rhythm: Normal rate and regular rhythm. Heart sounds: Normal heart sounds. No murmur. Pulmonary: Effort: Pulmonary effort is normal. Breath sounds: Normal breath sounds. No wheezing or rales. Abdominal: General: Bowel sounds are normal. Palpations: Abdomen is soft. There is no mass. Tenderness: There is no abdominal tenderness. Musculoskeletal: General: No deformity or signs of injury. Lymphadenopathy: Cervical: No cervical adenopathy. Skin: General: Skin is warm and dry. Capillary Refill: Capillary refill takes less than 2 seconds. Findings: No rash. Neurological: General: No focal deficit present. Mental Status: She is alert. Deep Tendon Reflexes: Reflexes normal. Psychiatric: Attention and Perception: Attention normal. Mood and Affect: Mood and affect normal. Speech: Speech normal. Behavior: Behavior normal. Thought Content: Thought content normal. Assessment/Plan Diagnoses and all orders for this visit: Well woman exam Class 1 obesity due to excess calories without serious comorbidity with body mass index (BMI) of 31.0 to 31.9 in adult Encounter for surveillance of contraceptive pills - drospirenone-ethinyl estradiol (LUIS) 3-0.02 MG per tablet; Take 1 tablet by mouth 1 (one) time each day Influenza vaccination declined Immunizations due: Recommend flu vaccine, pt declined. Otherwise up to date. Hepatitis C: Declined HIV Screen: Declined Colon Cancer Screen: not indicated, screen at age 50 Mammogram: not indicated, recommend discussing screening at age 40 Pap exam: normal, 03/24/19. Next due 2023. PHQ-9: 0 Diabetes screen: Normal in 2018 Cholesterol screen: Normal lipid panel in 2018 Encouraged weight loss through regular aerobic exercise and healthy eating. Encouraged her to check out online virtual fitness classes such as through [facility] or apps such as [employer] or Dream[employer]. See AVS for detailed patient education. Offered referral to nutrition, patient declined. OCP refilled for 1 year. Recommended starting supplement if she and her decide to start trying to conceive. Return in 1 year for next annual exam, sooner if concerns. Questions answered, patient verbalized understanding and is in agreement with plan. This dictation was created using voice recognition software and therefore may contain errors that went unnoticed. Carine Campos PA-C CTOR NETWORK DEVELOPMENT documented in 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 Plan of Treatment Not on filedocumented as of 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 Visit Diagnoses Diagnosis Well woman exam - Primary Routine general medical examination at a health care facility Class 1 obesity due to excess calories w ithout serious comorbidity with body mass index (BMI) of 31.0 to 31.9 in adult Encounter for surveillance of contracept sonal pills Influenza vaccination declined documented in 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 Care Teams Sprinkler Truck Driver Relationship Specialty Start Date End Date Carine Campos PA-C PCP - General Family Medicine 03/21/1907/16 documented as of 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
--- OUTSIDE RECORDS SUMMARY | 2021-12-24 21:56 | XMS_ITS | Encounter Summary ---
:1985 Author Organization [facility] Address [address] [place] [address] Care Team Providers Name Role Phone Unavailable Primary Care Provider Unavailable Encounter Details Date Type Department Care Team Description 03/06/2021 Orders Only SE Family Med Rigo Angela MD [address] [facility] [address] [place] [address] [place] [address] [phone] (Wo rk) Social History Tobacco Use Types [...] or relatives? How often do you attend hoahaoism or adventism 1 to 4 times per year 04/17/2020 services? Do you belong to any clubs or organizations Yes 04/17/2020 such as hoahaoism groups, unions, fraternal or athletic groups, or [...]
--- OUTSIDE RECORDS SUMMARY | 2021-12-24 21:56 | XMS_ITS | Encounter Summary ---
:1985 Author Organization [facility] Address [address] [place] [address] Care Team Providers Name Role Phone Carine Leo PA-C Primary Care Provider Unavailable Reason for Visit Reason Comments Annual Exam Encounter Details Date Type Department Care Team Description 03/21/2019 Office Visit [place] Carine Leo, Well woman exam (Primary Dx) ; [address] Encounter for surveillance o f contraceptive pills; [place], [place] [address] Screening for cervical cance r; [phone] Screening for h uman papillomavirus (HPV); Influenza [...] or relatives? How often do you attend mandaeism or hoahaoism 1 to 4 times per year 04/17/2020 services? Do you belong to any clubs or organizations Yes 04/17/2020 such as mandaeism groups, unions, fraternal or athletic groups, or [...] Comments Blood Pressure 112/72 03/21/2019 9:29 AM AERONAUTICAL ENGINEER Pulse 82 03/21/2019 9:29 AM AERONAUTICAL ENGINEER Temperature 36.5 ??C (97.7 ??F) 03/21/2019 9:29 AM AERONAUTICAL ENGINEER Respiratory Rate 16 03/21/2019 9:29 AM AERONAUTICAL ENGINEER Oxygen Saturation 100% 03/21/2019 9:29 AM AERONAUTICAL ENGINEER Inhaled Oxygen Concentration - - Weight 98.7 kg (217 lb 11.2 oz) 03/21/2019 9:29 AM AERONAUTICAL ENGINEER Height 177 cm (5' 9.69) 03/21/2019 9:29 AM AERONAUTICAL ENGINEER Body Mass Index 31.52 03/21/2019 9:29 AM AERONAUTICAL ENGINEER documented in 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 Progress Notes Carine [...] 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 She needs a refill of her oral [...] allergies. No other questions or concerns today. 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 Current Outpatient Medications: ??? xylqhpw-mlmrzhloggwdl-hfdbmxpd (EXCEDRIN MIGRAINE) 250-250-65 MG per tablet, Take [...] BA, AB, BS) Occupational History ??? Occupation: [employer] Comment: [employer] Social Needs ??? Financial resource strain: Not [...] week Gets together: Once a week Attends hoahaoism service: 1 to 4 times per year [...] (Completed) Influenza vaccination declined Carine Leo PA-C NAUTICAL ENGINEER documented in 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 Miscellaneous Notes Assessment [...] mole on the right breast for changes. NAUTICAL ENGINEER Assessment & Plan Note - Carine Leo [...] throughout the week. Will continue to monitor. NAUTICAL ENGINEER documented in 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 Plan of Treatment Not on filedocumented as of 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 Procedures Procedure Name Priority Date/Time Associated Diagnosis Comme nts HPV HIGH RISK DNA Routine 03/21/2019 9:56 AM Screening for hum an Results for this DETECTION WITH AERONAUTICAL ENGINEER papillomavirus (HPV) proce jacques are in GENOTYPING the results section. PAP TEST Routine 03/21/2019 9:56 AM Screening for cervical Results for this AERONAUTICAL ENGINEER cancer procedure are i n the results section. documented in 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 Results HPV High Risk DNA Detection with Genotyping (03/21/2019 9:56 AM AERONAUTICAL ENGINEER) [facility] Method Time Signature Source Endocervical 03/24/2019 [facility] 5:13 PM AERONAUTICAL ENGINEER LABORATORIES HPV Type 16 Negative Negative 03/24/2019 [facility] 5:13 PM AERONAUTICAL ENGINEER LABORATORIES HPV Type 18 Negative Negative 03/24/2019 [facility] 5:13 PM AERONAUTICAL ENGINEER LABORATORIES HPV non-Type Negative Negative 03/24/2019 [facility] 16 or 18 5:13 PM AERONAUTICAL ENGINEER LABORATORIES Comment: The following Other High Risk HPV types were not detected: 31, 33, 35, 39, 45, 51, 52, 56, 58, 59, 66, and 68 ADDITIONAL INFORMATIO N This test has been modified from the man renettar's instructions. Its performance characteri stics were determined by [facility] in a manner co nsistent with CLIA requirements. This test has not been leona ared or approved by the U.S. Food and Drug Administration. Test Performed by: [facility] - [address] [address] M[place] Layer: Joao Alexis M.D. Ph. D.; CLIA# [id number] Specimen (Source) Anatomical Collection Method Collection Time Re ceived Time Location / / Volume Laterality Pap collection 03/21/2019 9:56 03/21/2019 1:27 bottle AM AERONAUTICAL ENGINEER PM AERONAUTICAL ENGINEER Carine Leo PA-C LAB CYTOLOGY ORDERABLES Performing Organization Address City/State/ZIP Code Phon e Number [facility] see result attachment for specific address Pap Smear (03/21/2019 9:56 AM AERONAUTICAL ENGINEER) Specimen Anatomical Collection Method Collection Time Receive d Time (Source) Location / / Volume Laterality Sure Path PAP, 03/21/2019 9:56 AM 019 3:44 screen AERONAUTICAL ENGINEER PM AERONAUTICAL ENGINEER Narrative [facility] - 03/18 2:30 PM AERONAUTICAL ENGINEER ? [facility] ? [address] ?[place] [address] ? Patient: ?IVIS BELL ? Procedure: ? 03/21/2019 09:56 /Age/Sex: ??1985, 33 Y, F ? Received: ?03/21/2019 15:44 ?Accession #: ?? [id number] Billing: ?[id number] ?Patient Location: [facility] ?OFFICE Ordered by: ?? CARINE LEO PA-C ? Attending: ? CARINE LEO PA-C ? ADVERTISING SALES ASSOCIATE CYTOLOGY FINAL REPORT SPECIMEN: (A) SURE PATH [...] Organization Address City/State/ZIP Code Phon e Number [facility] [address] [place] [address] documented in 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 Visit Diagnoses Diagnosis [...] adult documented in 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 Care Teams Manager Shipping Relationship Specialty Start Date End Date Carine Leo PA-C PCP - General Family Medicine 03/21/1907/16 documented as of 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
--- OUTSIDE RECORDS SUMMARY | 2021-12-24 21:57 | XMS_ITS | Encounter Summary ---
:1985 Author Organization [facility] Address [address] [place] [address] Care Team Providers Name Role Phone Kristi Dubois DNP, WRAPPER CASHIER, STORE LEADER Primary Care Provider [phone] Encounter Details Date Type Department Care Team Description 03/08/2018 Abstract SE Family Med Kristi Dubois, SOFIE, [address] [facility] WRAPPER CASHIER, [place] [address] [address] [facility] [phone] [place] [id number] Social History Tobacco Use Types Packs/Day Years [...] How often do you attend yarsanism or presybeterian 1 to 4 times per year 04/17/2020 [...] on filedocumented in 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 Care Teams Operating Table Assembler Relationship Specialty Start Date End Date Kristi Dubois, SOFIE, WRAPPER CASHIER, STORE LEADER PCP - General 12/22/17 03/20/19 documented as of 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
--- OUTSIDE RECORDS SUMMARY | 2021-12-24 21:57 | XMS_ITS | Encounter Summary ---
:1985 Author Organization [facility] Address [address] [place] [address] Care Team Providers Name Role Phone Unavailable [...]
--- OUTSIDE RECORDS SUMMARY | 2021-12-24 21:57 | XMS_ITS | Encounter Summary ---
:1985 Author Organization [facility] Address [address] [place] [address] Care Team Providers Name Role Phone Unavailable Primary Care Provider Unavailable Reason for Visit Reason Onset Date Comments Outpatient COVID-19 Testing 04/03/2020 Encounter Details Date Type Department Care Team Description 04/03/2020 External Outreach Department of [facility] Stormy Styles Infection Upper Medicine, [place] [facility] PSophie[facility] (Primary Clinic, in [place], [address]) [place], [place] [address] [address] [place], [place] [phone] (Work) [phone] Social History Tobacco Use Types Packs/Day Years Used Date Smoking Tobacco: Never Sex Assigned at Date Recorded Not on file documented as of 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 Progress Notes Sonia Iraheta L.P.N. - 04/03/2020 1:51 PM CST Encounter created for the drive-through COVID-19 testing. R HOUSE CONTROL ROOM OPERATOR documented in 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 Plan of Treatment Not on filedocumented as of 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 Procedures Procedure Name Priority Date/Time Associated Diagnosis Comme nts SARS CORONAVIRUS-2 Routine 04/03/2020 2:19 PM Infection Upper Results for this RNA, V POWER HOUSE CONTROL ROOM OPERATOR Respiratory procedure are i n the results section. documented in 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 Results SARS Coronavirus-2 RNA, V Symptomatic (04/03/2020 2:19 PM POWER HOUSE CONTROL ROOM OPERATOR) [facility] Method Time Signature SARS-CoV-2 Swab, 04/04/2020 [facility] Specimen Nasopharynx 12:31 PM Source POWER HOUSE CONTROL ROOM OPERATOR SARS CoV-2 Undetected Undetected 04/04/2020 [facility] RNA, TMA 12:31 PM POWER HOUSE CONTROL ROOM OPERATOR Comment: SARS-CoV-2 RNA absent. This result does not rule out COVID-19 in the patient, as the sensitivity of the test depends o n the timing of the specimen collection and the quality of the specim en. Result should be correlated with patient's history and clinical presentat ion. ----ADDITIONAL INFORMATION---- This test is performed using the Aptima SARS-CoV-2 assay ([employer] which has received Emergency Use Authori zation (EUA) by the U.S. Food and Drug Administration. Fact sheets for this Emergency Use Autho rization (EUA) assay can be found at the following links: For Healthcare Providers: https://www.ResQU a.gov/media/894117/download For Patients: https://www.fda.gov/media/ 182023/download Specimen Anatomical Collection Method Collection Time Receive d Time (Source) Location / / Volume Laterality Varies 04/03/2020 2:19 PM 0 9:58 (Nasopharynx) POWER HOUSE CONTROL ROOM OPERATOR PM POWER HOUSE CONTROL ROOM OPERATOR Rafael Styles P.A.-C. LAB MICROBIOLOGY - GENERAL O RDERABLES Performing Organization Address City/State/ZIP Code Phon e Number [facility]- [address] [place] [phone] [facility] [place] [address] System [address] documented in 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 Visit Diagnoses Diagnosis Infection Upper Respiratory - Primary documented in 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 Additional Health Concerns Infection Onset Date Last Indicated Resolved Time COVID19 Pending 04/03/2020 04/03/2020 04/04/2020 12:32 PM POWER HOUSE CONTROL ROOM OPERATOR documented as of 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
--- OUTSIDE RECORDS SUMMARY | 2021-12-24 21:57 | XMS_ITS | Clinical Summary ---
:1985 Author Organization [facility] Address [address] [place] [address] Care Team Providers Name Role Phone Unavailable Primary Care Provider Unavailable Source Comments Patient records contain information from all sites at [facility]. For routine questions regarding patient records, call [phone] during business hours, M-F 8:00 AM - 5:00 PM Central Time. Record requests for emergency care only can be directed to [phone] at any time.[facility] Immunizations Name Administration Dates Next Due SARS-COV-2 (COVID-19) - PFIZER (12 years or older) , 08/09/2020 Tdap 09/29/2016 Social History Tobacco Use Types Packs/Day Years Used Date Smoking Tobacco: Never Sex Assigned at Date Recorded Not on file Last Filed Vital Signs Vital Sign Reading Time Taken Comments Blood Pressure 109/61 05/29/2017 5:49 AM RAILROAD CROSSING PROTECTION MAINTAINER Pulse 65 05/29/2017 5:49 AM RAILROAD CROSSING PROTECTION MAINTAINER Temperature - - Respiratory Rate 16 05/29/2017 5:49 AM RAILROAD CROSSING PROTECTION MAINTAINER Oxygen Saturation - - Inhaled Oxygen Concentration - - Weight 88.8 kg (195 lb 12.3 oz) 05/29/2017 5:49 AM RAILROAD CROSSING PROTECTION MAINTAINER Height 175 cm (5' 8.9) 05/29/2017 5:49 AM RAILROAD CROSSING PROTECTION MAINTAINER Body Mass Index 29 05/29/2017 5:49 AM RAILROAD CROSSING PROTECTION MAINTAINER Plan of Treatment Health Maintenance Due Date Last Done Comments HIV Screening 1985 Hepatitis B Vaccines (1 of 3 1985 - 3-dose series) Hepatitis C Screening 1985 COVID-19 Vaccine (3 [...] to pic Medical Devices Implanted Type Area Stemmer Machine Device Shelf Model / Identifier Expiration Serial / Date Lot Dressing Integra 5x5 Meshed - Olsen [id number] Bone or Other/Legacy - In tegra Implanted: Qty: 1 on 09/29/2016 Tissue See Implant Description Description: Device Stemmer Machine - [employer]. Body Location - Other. wound dressing. Device Status Text - BON [id number]. Insurance Payer Benefit Plan Subscriber ID Effective Dates Phone Address Type / Group [employer]UE [employer] [facility] [id number] 2017-Ariella [phone] [address] [address] PPO [facility] [address] [place] [address] [place] (Home) [facility] [phone] [place] (Work) [phone]
--- OUTSIDE RECORDS SUMMARY | 2021-12-24 21:57 | XMS_ITS | Encounter Summary ---
:1985 Author Organization [facility] Address [address] [place] [address] Care Team Providers Name Role Phone Unavailable [...] Comments Blood Pressure 109/61 05/29/2017 5:49 AM EQUITIES TRADER Pulse 65 05/29/2017 5:49 AM EQUITIES TRADER Temperature - - Respiratory Rate 16 05/29/2017 5:49 AM EQUITIES TRADER Oxygen Saturation - - Inhaled Oxygen Concentration - - Weight 88.8 kg (195 lb 12.3 oz) 05/29/2017 5:49 AM EQUITIES TRADER Height 175 cm (5' 8.9) 05/29/2017 5:49 AM EQUITIES TRADER Body Mass Index 29 05/29/2017 5:49 AM EQUITIES TRADER documented in 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 Plan of Treatment Not on filedocumented as of 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 Visit Diagnoses Not on filedocumented in 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
--- OUTSIDE RECORDS SUMMARY | 2021-12-24 21:57 | XMS_ITS | Encounter Summary ---
:1985 Author Organization [facility] Address [address] [place] [address] Care Team Providers Name Role Phone Unavailable Primary Care Provider Unavailable Encounter Details Date Type Department Care Team Description 04/03/2020 Admin Visit Department of Family Medicine, [facility] [place] in [place], [place] [address] [place] [address] Social History Tobacco Use Types Packs/Day Years Used Date Smoking Tobacco: Never Sex Assigned at Date Recorded Not on file documented as of 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 Plan of Treatment Not on filedocumented as of 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 Visit Diagnoses Not on filedocumented in 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 Additional Health Concerns Infection Onset Date Last Indicated Resolved Time COVID19 Pending 04/03/2020 04/03/2020 04/04/2020 12:32 PM ARCHITECTURE DRAFTER documented as of 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
--- OUTSIDE RECORDS SUMMARY | 2021-12-24 21:57 | XMS_ITS | Encounter Summary ---
:1985 Author Organization [facility] Address [address] [place] [address] Care Team Providers Name Role Phone Unavailable Primary Care Provider Unavailable Reason for Visit Reason Onset Date Comments Outpatient COVID-19 Testing 02/13/2020 Encounter Details Date Type Department Care Team Description 02/13/2020 External Outreach Department of [facility] Stormy Styles Infection Upper Medicine, [place] [facility] PSophieAMurtazaCSophie Respiratory (Primary Clinic, in [place], [address] Dx) [place], [place] [address] [address] [place], [place] [phone] [address] (Work) [phone] Social History Tobacco Use Types Packs/Day Years [...] RNA, V Symptomatic (02/13/2020 12:58 PM CDT) [facility] Method Time Signature SARS-CoV-2 Swab, 02/14/2020 [...] is performed using the Aptima SARS-CoV-2 assay ([employer] which has received Emergency Use Authori zation (EUA) by the U.S. Food and Drug Administration. Fact sheets for this Emergency Use Autho rization (EUA) assay can be found at the following links: For Healthcare Providers: https://www.SaleMove a.gov/media/972309/download For Patients: https://www.fda.gov/media/ 918560/download Specimen Anatomical Collection Method Collection Time Receive d Time (Source) Location / / Volume Laterality Varies 02/13/2020 12:58 02/13/2020 9:26 (Nasopharynx) PM CDT PM CDT Rafael Styles P.A.-C. LAB MICROBIOLOGY - GENERAL O RDERABLES Performing Organization Address City/State/ZIP Code Phon e Number [facility] [address] [place] [address] [phone] [facility] [place] [address] System [address] documented in 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 Visit Diagnoses Diagnosis Infection Upper Respiratory - Primary documented in 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 Additional Health Concerns Infection Onset Date Last Indicated Resolved Time COVID19 Pending 02/13/2020 02/13/2020 02/14/2020 3:09 PM CDT documented as of 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
--- OUTSIDE RECORDS SUMMARY | 2021-12-24 21:57 | XMS_ITS | Encounter Summary ---
:1985 Author Organization [facility] Address [address] [place] [address] Care Team Providers Name Role Phone Kristi Dubois DNP, CARDIOLOGY CLINICAL CONSULTANT, MEDIC TECHNICIAN Primary Care Provider [phone] Encounter Details Date Type Department Care Team Description 03/22/2018 [facility] Screening for diabetes melli tus; [address] Screening for hyperlipidemia [place], [place] [address] Social History Tobacco Use Types [...] or relatives? How often do you attend mormon or mormon 1 to 4 times per year 04/17/2020 services? Do you belong to any clubs or organizations Yes 04/17/2020 such as mormon groups, unions, fraternal or athletic groups, or [...] AM Screening for diabetes Results for this EVP mellitus procedure are i n the results section. HEMOCUE GLUCOSE Routine 03/22/2018 8:35 AM Screening for diabe anahi Results for this EVP mellitus procedure are i n the results section. LIPID PANEL Routine 03/22/2018 8:35 AM Screening for Results for this EVP hyperlipidemia procedure are in the results section. documented in 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 Results Fasting ? (03/22/2018 8:35 AM EVP) P athologist Signature Fasting? Yes 03/22/2018 8:38 [facility] EVP LAB Specimen Anatomical Collection Method Collection Time Receive d Time (Source) Location / / Volume Laterality 03/22/2018 8:35 AM 8 8:35 EVP AM EVP Kristi Dubois DNP, CARDIOLOGY CLINICAL CONSULTANT, MEDIC TECHNICIAN LAB BLOOD ORDERABLES Performing Organization Address City/State/ZIP Code Phon e Number [facility] [address] [place] [address] Lipid panel (03/22/2018 8:35 AM EVP) P athologist Signature Cholesterol 150 0 - 199 03/22/2018 [facility] mg/dL 12:59 PM [facility] Comment: Recommended by National Cholesterol Education Program (ATP III) -------- Cholesterol Ranges -------- <200 ? Desirable 200-239 ? Borderline high >=240 ? High Triglycerides 90 0 - 149 mg/dL 03/22/2018 12:59 PM T [facility] Comment: -------- TRIG Ranges -------- <150 ?Normal 150-199 ? Borderline high 200-499 ? High >=500 ? Very high HDL 54 40 - 60 mg/dL 03/22/2018 12:59 PM [facility] Comment: -------- HDL Ranges -------- <40 ?Low 40-59 ?Normal >=60 ? Optimal LDL Calculated 78 0 - 99 mg/dL 03/22/2018 12:59 PM CS T [facility] Comment: -------- LDL Ranges -------- <100 ? Optimal 100-129 ?Near optimal/above op timal 130-159 ?Borderline high 160-189 ?High >=190 ?Very high Fasting? Yes 03/22/2018 8:38 AM [facility] Specimen Anatomical Collection Method Collection Time Receive d Time (Source) Location / / Volume Laterality Blood (Blood, 03/22/2018 8:35 AM 03/22/20 18 Venous) EVP 12:20 PM EVP Kristi Dubois DNP, APRN, MEDIC TECHNICIAN LAB BLOOD ORDERABLES Performing Organization Address City/[facility]/ZIP Code Phon e Number [facility] [address] [place] [address] HemoCue glucose (03/22/2018 8:35 AM EVP) P athologist Signature Glucose, Bld 98 70 - 100 03/22/2018 [facility] mg/dL 8:58 AM [facility] Comment: . Specimen Anatomical Collection Method Collection Time Receive d Time (Source) Location / / Volume Laterality Blood 03/22/2018 8:35 AM 8 8:35 EVP AM EVP Kristi Dubois DNP, APRN, MEDIC TECHNICIAN LAB BLOOD ORDERABLES Performing Organization Address City/[facility]/ZIP Code Phon e Number [facility] [address] [place] [address] documented in 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 Visit Diagnoses Diagnosis Screening for diabetes mellitus Screening for hyperlipidemia Screening for lipoid disorders documented in 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 Care Teams Relocation Manager Relationship Specialty Start Date End Date Muzic, Kristi J, DNP, CARDIOLOGY CLINICAL CONSULTANT, MEDIC TECHNICIAN PCP - General 12/22/17 03/20/19 documented as of 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
--- OUTSIDE RECORDS SUMMARY | 2021-12-24 21:57 | XMS_ITS | Encounter Summary ---
:1985 Author Organization [facility] Address [address] [place] [address] Care Team Providers Name Role Phone Unavailable Primary Care Provider Unavailable Encounter Details Date Type Department Care Team Description 09/04/2020 Immunization Department of [facility] Lee Powers For COVID-19 Medicine, [place] Oralia Key Vaccine Immunization Professional Building, [address] [facility] in [address] [address] [place] [address] [phone] Social History Tobacco Use Types Packs/Day Years Used Date Smoking Tobacco: Never Sex Assigned at Date Recorded Not on file documented as of 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 Plan of Treatment Not on filedocumented as of 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 Visit Diagnoses Diagnosis Encounter For COVID-19 Vaccine Immunizat ion documented in 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
--- OUTSIDE RECORDS SUMMARY | 2021-12-24 21:57 | XMS_ITS | Encounter Summary ---
:[address] [facility] Address [address] [place] [address] Care Team Providers Name Role Phone Unavailable Primary Care Provider Unavailable Reason for Visit Reason Onset Date Comments Testing For Upper Respiratory Virus Symptoms 01/26/2021 Encounter Details Date Type Department Care Team Description 01/26/2021 External Outreach Department of [facility] Stormy Styles Contact With And Medicine, Sascha Martini P.A.-C. (Suspected) Exposure Clinic, in [address] To COVID-19 (Primary [place], [place] Dx) [address] [facility] [address] [place], [place] [phone] [address] (Work) [phone] Social History Tobacco Use Types Packs/Day Years [...] RNA, V Symptomatic (01/26/2021 9:17 AM CDT) [facility] Method Time Signature SARS-CoV-2 Swab, 01/26/2021 [...] pe rformed using the Aptima SARS-CoV-2 assay ([employer] on the [employer] tem under emergency use authorization (EUA) by the U.S. Food and Drug Administ ration. Fact sheets for this EUA assay can be fo und at the following links: For Healthcare Providers: https://www.Mavatar a.gov/media/159986/download For Patients: https://www.fda.gov/media/ 496942/download Specimen Anatomical Collection Method Collection Time Receive d Time (Source) Location / / Volume Laterality Varies 01/26/2021 9:17 AM 3:08 (Nasopharynx) CDT PM CDT Rafael Styles P.A.-C. LAB MICROBIOLOGY - GENERAL O LASHAY Performing Organization Address City/State/ZIP Code Phon e Number [facility]- [address] [place] [address] 04 [phone] [facility] [place] [address] System [address] documented in 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 Visit Diagnoses Diagnosis Contact With And (Suspected) Exposure To COVID-19 - Primary documented in 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 Additional Health Concerns Infection Onset Date Last Indicated Resolved Time COVID19 Pending 01/26/2021 01/26/2021 01/26/2021 8:39 PM CDT documented as of 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
--- OUTSIDE RECORDS SUMMARY | 2021-12-24 21:57 | XMS_ITS | Encounter Summary ---
:1985 Author Organization [facility] Address [address] [place] [address] Care Team Providers Name Role Phone Unavailable Primary Care Provider Unavailable Reason for Visit Reason Comments CASTRO Nurse Nadege Encounter Details Date Type Department Care Team Description 01/25/2021 Clinical Communication Division of CASTRO Nagy [facility] Internal Kali [facility] [phone] [place], in (Work) [place], [place] [address] [place] [address] Social History Tobacco Use Types Packs/Day Years Used Date Smoking Tobacco: Never Sex Assigned at Date Recorded Not on file documented as of 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 Miscellaneous Notes Telephone Encounter - Miguel Munson - 01/27/2021 10:13 AM CDT Pt was tested 01/26/21. Telephone Encounter - Svetlana Nagy R.N. - 01/25/2021 4:30 PM CDT COVID-19 Nurse Line Screening ASSESSMENT Region Select appropriate region: : [place] Age Pathway Select approprite pathway: : Adult [...] swabbed for COVID-19 Only , sent to [facility] located at [address]. An appointment is required for testing, please call [phone] Thursday- Thursday 7am to 6pm and Thursday [...] frequently with soap and water, use hand support worker if soap and water aren't available. -Wear [...] care: Yes The following references were used: [facility] novel coronavirus (COVID- 19) resources Nursing judgement documented in 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 Plan of Treatment Not on filedocumented as of 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 Visit Diagnoses Not on filedocumented in 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 Additional Health Concerns Infection Onset Date Last Indicated Resolved Time COVID19 Pending 01/26/2021 01/26/2021 01/26/2021 8:39 PM CDT documented as of 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
--- OUTSIDE RECORDS SUMMARY | 2021-12-24 21:57 | XMS_ITS | Encounter Summary ---
:1985 Author Organization [facility] Address [address] [place] [address] Care Team Providers Name Role Phone Unavailable [...]
--- OUTSIDE RECORDS SUMMARY | 2021-12-24 21:57 | XMS_ITS | Encounter Summary ---
:1985 Author Organization [facility] Address [address] [place] [address] Care Team Providers Name Role Phone Unavailable [...] Electronically signed by: ?? Yue Bhandari MD [id number] 29-Sep-2016 18:28 I have reviewed the films/images and agr ee with the above interpretation. Electronically signed by: ?? Lore Garnica ??Oralia [phone] 29-Sep-2016 19 :11 Narrative 09/29/2016 7:11 PM [...] acquired. Electronically signed by: Yue Bhandari MD [phone] 29-Sep-2016 18:28 I have reviewed the films/images and agr ee with the above interpretation. Electronically signed by: Lore Garnica M.D. [id number] 29-Sep-2016 19:1 1 Sebastien Mirza M.D. IMG [...]
--- OUTSIDE RECORDS SUMMARY | 2021-12-24 21:57 | XMS_ITS | Encounter Summary ---
:1985 Author Organization [facility] Address [address] [place] [address] Care Team Providers Name Role Phone Unavailable Primary Care Provider Unavailable Reason for Referral Specialty Diagnoses / Procedures Referred By Contact Refer red To Contact Gustabo Castaneda M.D. [facility] Region [address] [place] [address] Referral ID Status Reason Start Date Expiration Date Visits Requ ested Visits Authorized Encounter Details Date Type Department Care Team Description 08/02/2020 Orders Only [facility] PCP TH BAMT Sa rosendo Champagne M.D. [address] [place], [place] [phone] (Wo rk) Social History [...]
--- OUTSIDE RECORDS SUMMARY | 2021-12-24 21:57 | XMS_ITS | Encounter Summary ---
:1985 Author Organization [facility] Address [address] [place] [address] Care Team Providers Name Role Phone Unavailable Primary Care Provider Unavailable Encounter Details Date Type Department Care Team Description 01/26/2021 Admin Visit Department of Family Rafael Styles, Medicine, [facility] in [facility] [address] [facility] [address] [place] [address] [place] [address] [phone] Social History Tobacco Use Types Packs/Day Years [...]
--- OUTSIDE RECORDS SUMMARY | 2021-12-24 21:57 | XMS_ITS | Encounter Summary ---
:1985 Author Organization [facility] Address [address] [place] [address] Care Team Providers Name Role Phone Unavailable Primary Care Provider Unavailable Encounter Details Date Type Department Care Team Description 2016 Hospital Encounter HX RST PMR PT OT CON Geraldine Escobar M, O.T. [address] [place] [phone] Social History Tobacco Use Types Packs/Day Years Used Date Smoking Tobacco: Never Assessed Sex Assigned at Date Recorded Not on file documented as of 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 Plan of Treatment Not on filedocumented as of 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 Visit Diagnoses Not on filedocumented in 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
--- OUTSIDE RECORDS SUMMARY | 2021-12-24 21:57 | XMS_ITS | Encounter Summary ---
:1985 Author Organization [facility] Address [address] [place] [address] Care Team Providers Name Role Phone Unavailable [...] Visit Diagnoses Not on filedocumented in 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"
--- OUTSIDE RECORDS SUMMARY | 2021-12-24 21:57 | XMS_ITS | Encounter Summary ---
:1985 Author Organization [facility] Address [address] [place] [address] Care Team Providers Name Role Phone Unavailable Primary Care Provider Unavailable Reason for Visit Reason Comments COVID Nurse Line Encounter Details Date Type Department Care Team Description 02/13/2020 Clinical Communication Division of Brenda Domínguez Nurse Nadege [facility] Internal R, R.N. [facility] [address] [place] [address], in [facility] [address] [place] [phone] [place] [address] (Work) [place] [phone] Social History Tobacco Use Types Packs/Day Years [...] to be swabbed for COVID-19, sent to [facility] located at [address] [facility]. Testing hours are M-F 10 am [...] and water aren't available, use a hand sales representative advertising that contains at least 60% alcohol. Avoid [...] since you were tested. Educational Resource: https://www.cdc.gov/coronavirus/2019-ncov/ lziscax-twibpgx-nnfg/index.html RECOMMENDATIONS TESTING CRITERIA IS MET: Stay home [...] COVID- 19 test result. Education Resources: https://www.cdc.gov/coronavirus/2019- ncov/lj-gzq-swr-sick/cvvnn-aeom-ixbs.html SELF CARE FOR ALL PATIENTS: Take breaks from watching, reading, or listening to news stories. Education: Patient/caregiver able to teach back Patient agreeable to plan of care: Yes The following references were used: [facility] novel coronavirus (COVID- 19) resources Nursing judgement documented in 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 Plan of Treatment Not on filedocumented as of 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 Visit Diagnoses Not on filedocumented in 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
--- OUTSIDE RECORDS SUMMARY | 2021-12-24 21:57 | XMS_ITS | Encounter Summary ---
:1985 Author Organization [facility] Address [address] [place] [address] Care Team Providers Name Role Phone Kristi Dubois DNP, FOREST AND CONSERVATION WORKER, MILL OPERATOR HEAD Primary Care Provider [phone] Encounter Details Date Type Department Care Team [...] or relatives? How often do you attend baptist or orthodoxy 1 to 4 times per year 04/17/2020 services? Do you belong to any clubs or organizations Yes 04/17/2020 such as baptist groups, unions, fraternal or athletic groups, or [...] on filedocumented in 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 Care Teams Mold Changer Relationship Specialty Start Date End Date Kristi Dubois, DNP, FOREST AND CONSERVATION WORKER, MILL OPERATOR HEAD PCP - General 12/22/17 03/20/19 documented as of 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
--- OUTSIDE RECORDS SUMMARY | 2021-12-24 21:57 | XMS_ITS | Encounter Summary ---
:1985 Author Organization [facility] Address [address] [place] [address] Care Team Providers Name Role Phone Unavailable Primary Care Provider Unavailable Reason for Referral Specialty Diagnoses / Procedures Referred By Contact Refer red To Contact [facility] Professional [facility] [address] [place] [address] Referral ID Status Reason Start Date Expiration Date Visits Requ ested Visits Authorized Encounter Details Date Type Department Care Team Description 08/09/2020 Immunization Department of Lee Swenson For COVID-19 Medicine, [place] Oralia Key Vaccine Immunization Professional [facility], [address] (Primary Dx) in [place], [place] [address] [facility] [address] [place] [address] Social History Tobacco Use Types Packs/Day [...]
--- OUTSIDE RECORDS SUMMARY | 2021-12-24 21:57 | XMS_ITS | Encounter Summary ---
:1985 Author Organization [facility] Address [address] [place] [address] Care Team Providers Name Role Phone Kristi Dubois DNP, LIBBY, SECURITY ATTENDANT Primary Care Provider [phone] Reason for Visit Reason Comments Annual Exam Encounter Details Date Type Department Care Team Description 03/11/2018 Office Visit [place] Kristi Dubois, Annual physical exam (Primar y Dx); [address] DNP, AREA INTELLIGENCE TECHNICIAN, CN P Encounter for surveillance of contracept sonal pills; [address] Screening for diabetes mellitus; [place], [place] DIRK Siddiqui Screening fo r hyperlipidemia [phone] Social History Tobacco Use Types Packs/Day [...] How often do you attend baptism or baptist 1 to 4 times per year 04/17/2020 [...] encounter Patient Instructions Patient InstructionsKristi Gonzalez, DNP, AREA INTELLIGENCE TECHNICIAN, SECURITY ATTENDANT - 03/11/2018 9:40 AM CDT Images from [...] take. These include vitamins, herbal supplements, and szcn-mga-jenqbgf medicines. ? Your history of immunizations. Discuss [...] in fiber. Ask to meet with a quality control lab technician or registered dietitian for assistance with meal [...] 04/16/2009 Document Revised: 12/30/2016 Document Reviewed: 11/23/2016 [employer] Interactive Patient Education ?? 2017 [employer]. documented in 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 Progress Notes Kristi [...] Outpatient Medications Medication Sig Dispense Refill ??? jkgyqwe-jadstvxtcguyu-jphqqvwg (EXCEDRIN MIGRAINE) 250-250-65 MG per tablet Take [...] 99% Allergies: Amoxicillin and Morphine Patient declined butadiene convertor operator for breast exam. Physical Exam Constitutional: She [...] in agreement with the plan of care. Electronically signed by Kristi Gonzalez, SOFIE, AREA INTELLIGENCE TECHNICIAN, SECURITY ATTENDANT at 03/11/2018 12:59 PM CDT documented in 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 Plan of Treatment Not on filedocumented as of 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 Results HemoCue glucose (03/22/2018 8:35 AM PERL DEVELOPER) athologist Signature Glucose, Bld 98 70 - 100 03/22/2018 [facility] mg/dL 8:58 AM [facility] Comment: . Specimen Anatomical Collection Method Collection Time Receive d Time (Source) Location / / Volume Laterality Blood 03/22/2018 8:35 AM 8 8:35 PERL DEVELOPER AM PERL DEVELOPER Kristi Dubois DNP, AREA INTELLIGENCE TECHNICIAN, SECURITY ATTENDANT LAB BLOOD ORDERABLES Performing Organization Address City/State/ZIP Code Phon e Number [facility] [place] [facility] [address] [facility] [address] [place] [address] Lipid panel (03/22/2018 8:35 AM PERL DEVELOPER) athologist Signature Cholesterol 150 0 - 199 03/22/2018 [facility] mg/dL 12:59 PM [facility] Comment: Recommended by National Cholesterol Education Program (ATP III) -------- Cholesterol Ranges -------- <200 ? Desirable 200-239 ? Borderline high >=240 ? High Triglycerides 90 0 - 149 mg/dL 03/22/2018 12:59 PM T [facility] Comment: -------- TRIG Ranges -------- <150 ?Normal 150-199 ? Borderline high 200-499 ? High >=500 ? Very high HDL 54 40 - 60 mg/dL 03/22/2018 12:59 PM PERL DEVELOPER [facility] Comment: -------- HDL Ranges -------- <40 ?Low 40-59 ?Normal >=60 ? Optimal LDL Calculated 78 0 - 99 mg/dL 03/22/2018 12:59 PM CS T [facility] Comment: -------- LDL Ranges -------- <100 ? Optimal 100-129 ?Near optimal/above op timal 130-159 ?Borderline high 160-189 ?High >=190 ?Very high Fasting? Yes 03/22/2018 8:38 AM PERL DEVELOPER [facility] Specimen Anatomical Collection Method Collection Time Receive d Time (Source) Location / / Volume Laterality Blood (Blood, 03/22/2018 8:35 AM 03/22/20 18 Venous) PERL DEVELOPER 12:20 PM PERL DEVELOPER Kristi Dubois DNP, LIBBY, SECURITY ATTENDANT LAB BLOOD ORDERABLES Performing Organization Address City/State/ZIP Code Phon e Number [facility] [address] [place] [address] documented in 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 Visit Diagnoses Diagnosis Annual physical exam - Primary Routine general medical examination at a health care facility Encounter for surveillance of contracept sonal pills Screening for diabetes mellitus Screening for hyperlipidemia Screening for lipoid disorders documented in 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 Care Teams Hotel Reservation Agent Relationship Specialty Start Date End Date Kristi Dubois DNP, AREA INTELLIGENCE TECHNICIAN, SECURITY ATTENDANT PCP - General 12/22/17 03/20/19 documented as of 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
--- OUTSIDE RECORDS SUMMARY | 2021-12-24 21:57 | XMS_ITS | Encounter Summary ---
:1985 Author Organization [facility] Address [address] [place] [address] Care Team Providers Name Role Phone Unavailable Primary Care Provider Unavailable Encounter Details Date Type Department Care Team Description 04/03/2020 Clinical Communication Department of [facility] in [place], [place] [address] [place] [address] Social History Tobacco Use Types Packs/Day Years Used Date Smoking Tobacco: Never Sex Assigned at Date Recorded Not on file documented as of 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 Plan of Treatment Not on filedocumented as of 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 Visit Diagnoses Not on filedocumented in 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 Additional Health Concerns Infection Onset Date Last Indicated Resolved Time COVID19 Pending 04/03/2020 04/03/2020 04/04/2020 12:32 PM TAXI PROPRIETOR documented as of 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
== END 2021-12-19 12:00 | disposition home or self-care (01) | DRG 560 ==
LOC: OB OUT 12:27 → OB 12:27
PROVIDERS: Admitting Provider Advanced Practice Midwife; Visit Provider Advanced Practice Midwife
DX: O40.3XX0 Polyhydramnios, third trimester, not applicable or unspecified (principal); O70.1 Second degree perineal laceration during delivery; O99.214 Obesity complicating childbirth; E66.9 Obesity, unspecified; O99.02 Anemia complicating childbirth; D64.9 Anemia, unspecified; Z3A.39 39 weeks gestation of pregnancy; Z37.0 Single live birth
CPT/HCPCS: 01967; 36415; 76819; 85025; 86850; 86900; 86901; 87635; J2795; J3010; J7120

== ENCOUNTER 2022-01-13 12:53 | Outpatient (CLI) | payer BC, SELFPAY ==
--- OUTSIDE RECORDS SUMMARY | 2022-01-13 12:56 | XMS_ITS | Encounter Summary ---
:[address] [facility] Address [address] [place] [address] Care Team Providers Name Role Phone Carine Campos PA-C Primary Care Provider Unavailable Encounter Details Date Type Department Care Team Description 12/06/2018 Telephone [place] Carine Campos PA-C [address] [place] [address] [address] [place], [place] [address] Social History Tobacco Use Types [...] or relatives? How often do you attend congregational or adventist 1 to 4 times per year 04/17/2020 services? Do you belong to any clubs or organizations Yes 04/17/2020 such as congregational groups, unions, fraternal or athletic groups, or [...] on filedocumented in 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 Care Teams Research Laboratory Manager Relationship Specialty Start Date End Date Carine Campos PA-C PCP - General Family Medicine 03/21/1907/16 documented as of 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
--- OUTSIDE RECORDS SUMMARY | 2022-01-13 12:56 | XMS_ITS | Encounter Summary ---
:1985 Author Organization [facility] Address [address] [place] [address] Care Team Providers Name Role Phone Carine Leo PA-C Primary Care Provider Unavailable Reason for Visit Reason Comments Annual Exam Encounter Details Date Type Department Care Team Description 03/21/2019 Office Visit [place] Carine Leo, Well woman exam (Primary Dx) ; [address] Encounter for surveillance o f contraceptive pills; [place], [place] [address] Screening for cervical cance r; [phone] Screening for h uman papillomavirus (HPV); Influenza [...] or relatives? How often do you attend hindu or yarsani 1 to 4 times per year 04/17/2020 services? Do you belong to any clubs or organizations Yes 04/17/2020 such as hindu groups, unions, fraternal or athletic groups, or [...] Comments Blood Pressure 112/72 03/21/2019 9:29 AM SKILLS AUDITOR Pulse 82 03/21/2019 9:29 AM SKILLS AUDITOR Temperature 36.5 ??C (97.7 ??F) 03/21/2019 9:29 AM SKILLS AUDITOR Respiratory Rate 16 03/21/2019 9:29 AM SKILLS AUDITOR Oxygen Saturation 100% 03/21/2019 9:29 AM SKILLS AUDITOR Inhaled Oxygen Concentration - - Weight 98.7 kg (217 lb 11.2 oz) 03/21/2019 9:29 AM SKILLS AUDITOR Height 177 cm (5' 9.69) 03/21/2019 9:29 AM SKILLS AUDITOR Body Mass Index 31.52 03/21/2019 9:29 AM SKILLS AUDITOR documented in 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 Progress Notes Carine [...] 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 She needs a refill of her oral [...] allergies. No other questions or concerns today. STABLE HELPER history No obstetric history on file. Current Outpatient Medications: ??? pyosass-evchyubmeamty-iwuccqqr (EXCEDRIN MIGRAINE) 250-250-65 MG per tablet, Take [...] BA, AB, BS) Occupational History ??? Occupation: [email or web address] Comment: [employer] Social Needs ??? Financial resource strain: Not [...] week Gets together: Once a week Attends yarsani service: 1 to 4 times per year [...] (Completed) Influenza vaccination declined Carine Leo PA-C LS AUDITOR documented in 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 Miscellaneous Notes Assessment [...] mole on the right breast for changes. LS AUDITOR Assessment & Plan Note - Carine Leo [...] throughout the week. Will continue to monitor. LS AUDITOR documented in 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 Plan of Treatment Not on filedocumented as of 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 Procedures Procedure Name Priority Date/Time Associated Diagnosis Comme nts HPV HIGH RISK DNA Routine 03/21/2019 9:56 AM Screening for hum an Results for this DETECTION WITH SKILLS AUDITOR papillomavirus (HPV) proce jacques are in GENOTYPING the results section. PAP TEST Routine 03/21/2019 9:56 AM Screening for cervical Results for this SKILLS AUDITOR cancer procedure are i n the results section. documented in 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 Results HPV High Risk DNA Detection with Genotyping (03/21/2019 9:56 AM SKILLS AUDITOR) [facility] Method Time Signature Source Endocervical 03/24/2019 [facility] 5:13 PM SKILLS AUDITOR [facility] HPV Type 16 Negative Negative 03/24/2019 [facility] 5:13 PM [facility] AUD[facility] HPV Type 18 Negative Negative 03/24/2019 [facility] 5:13 PM [facility] AUDIT[facility] HPV non-Type Negative Negative 03/24/2019 [facility] 16 or 18 5:13 PM [facility]S AUDITOR [facility] Comment: The following Other High Risk HPV types were not detected: 31, 33, 35, 39, 45, 51, 52, 56, 58, 59, 66, and 68 ADDITIONAL INFORMATIO N This test has been modified from the man renettar's instructions. Its performance characteri stics were determined by [facility] in a manner co nsistent with CLIA requirements. This test has not been leona ared or approved by the U.S. Food and Drug Administration. Test Performed by: [facility] - [address] [address] Manufacturing Engineering Professor: Joao Alexis M.D. Ph. D.; CLIA# [id number] Specimen (Source) Anatomical Collection Method Collection Time Re ceived Time Location / / Volume Laterality Pap collection 03/21/2019 9:56 03/21/2019 1:27 bottle AM SKILLS AUDITOR PM SKILLS AUDITOR Carine Leo PA-C LAB CYTOLOGY ORDERABLES Performing Organization Address City/State/ZIP Code Phon e Number [facility] see result attachment for specific address Pap Smear (03/21/2019 9:56 AM SKILLS AUDITOR) Specimen Anatomical Collection Method Collection Time Receive d Time (Source) Location / / Volume Laterality Sure Path PAP, 03/21/2019 9:56 AM 019 3:44 screen SKILLS AUDITOR PM SKILLS AUDITOR Narrative [facility] - 03/18 2:30 PM SKILLS AUDITOR ? [facility] ? [address] ?[place] [address] ? Patient: ?IVIS BELL ? Procedure: ? 03/21/2019 09:56 /Age/Sex: ??1985, 33 Y, F ? Received: ?03/21/2019 15:44 ?Accession #: ?? [id number] Billing: ?[id number] ?Patient Location: [facility] ?OFFICE Ordered by: ?? CARINE LEO PA-C ? Attending: ? CARINE LEO PA-C ? CAFETERIA CLERK CYTOLOGY FINAL REPORT SPECIMEN: (A) SURE PATH [...] Organization Address City/State/ZIP Code Phon e Number [facility] [address] [place] [address] documented in 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 Visit Diagnoses Diagnosis [...] adult documented in 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 Care Teams Speech Language Pathology Assistant Relationship Specialty Start Date End Date Carine Leo PA-C PCP - General Family Medicine 03/21/1907/16 documented as of 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
--- OUTSIDE RECORDS SUMMARY | 2022-01-13 12:56 | XMS_ITS | Encounter Summary ---
:1985 Author Organization [facility] Address [address] [place] [address] Care Team Providers Name Role Phone Carine Campos PA-C Primary Care Provider Unavailable Reason for Visit Reason Onset Date Comments refill request 04/06/2020 Encounter Details Date Type Department Care Team Description 04/06/2020 Telephone [place] Carine Campos PA-C refill request [address] [facility] [address] [place], [place] [address] Social History Tobacco Use Types [...] or relatives? How often do you attend temple or jainism 1 to 4 times per year 04/17/2020 services? Do you belong to any clubs or organizations Yes 04/17/2020 such as temple groups, unions, fraternal or athletic groups, or [...] PA-C - 04/06/2020 7:[address] MAN Telephone Encounter - Svetlana Paredes RN - 04/06/2020 2:38 PM CST Last office visit 03/21/2019, last refill 03/21/2019, please advise ROAD MAN Telephone Encounter - Rosita Glass - 04/06/2020 11:50 AM CST drospirenone-ethinyl estradiol (RAJI SMITH) 3-0.02 MG per tablet Take 1 tablet by mouth 1 (one) time each day Devan Bansal Pt has apt on 04/[address] documented in 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 Plan of Treatment Not on filedocumented as of this encounter Visit Diagnoses Diagnosis Encounter for surveillance of contracept sonal pills documented in this encounter Care Teams Mine Safety Engineer Relationship Specialty Start Date End Date Carine Campos PA-C PCP - General Family Medicine 03/21/1907/16 documented as of this encounter
--- OUTSIDE RECORDS SUMMARY | 2022-01-13 12:56 | XMS_ITS | Encounter Summary ---
:1985 Author Organization [facility] Address [address] [place] [address] Care Team Providers Name Role Phone Kristi Dubois DNP, LIBBY, ADVERTISING SALES EXECUTIVE Primary Care Provider [phone] Reason for Visit Reason Comments Annual Exam Encounter Details Date Type Department Care Team Description 03/11/2018 Office Visit [place] Kristi Dubois, Annual physical exam (Primar y Dx); [address] DNP, SHOP DIRECTOR, CN P Encounter for surveillance of contracept sonal pills; [address] Screening for diabetes mellitus; [place], [place] DIRK Siddiqui Screening fo r hyperlipidemia [phone] Social History Tobacco Use Types Packs/Day [...] or relatives? How often do you attend tenriism or moravian 1 to 4 times per year 04/17/2020 services? Do you belong to any clubs or organizations Yes 04/17/2020 such as tenriism groups, unions, fraternal or athletic groups, or [...] encounter Patient Instructions Patient InstructionsKristi Gonzalez, DNP, SHOP DIRECTOR, ADVERTISING SALES EXECUTIVE - 03/11/2018 9:40 AM CDT Images from [...] take. These include vitamins, herbal supplements, and wjbv-ucw-cmvinhl medicines. ? Your history of immunizations. Discuss [...] in fiber. Ask to meet with a golf cart mechanic or registered dietitian for assistance with meal [...] 04/16/2009 Document Revised: 12/30/2016 Document Reviewed: 11/23/2016 [facility] Interactive Patient Education ?? 2017 [employer]. documented in this encounter Progress Notes Kristi [...] Outpatient Medications Medication Sig Dispense Refill ??? hwksaih-ilujgqgdavdhs-pvprcmnx (EXCEDRIN MIGRAINE) 250-250-65 MG per tablet Take [...] 99% Allergies: Amoxicillin and Morphine Patient declined big data platform architect for breast exam. Physical Exam Constitutional: She [...] care. Electronically signed by Kristi Gonzalez, SOFIE, SHOP DIRECTOR, ADVERTISING SALES EXECUTIVE at 03/11/2018 12:59 PM CDT documented in this encounter Plan of Treatment Not on filedocumented as of this encounter Results HemoCue glucose (03/22/2018 8:35 AM TRANSPORTATION CONSULTANT) athologist Signature Glucose, Bld 98 70 - 100 03/22/2018 [facility] mg/dL 8:58 AM [facility] Comment: . Specimen Anatomical Collection Method Collection Time Receive d Time (Source) Location / / Volume Laterality Blood 03/22/2018 8:35 AM 8 8:35 TRANSPORTATION CONSULTANT AM TRANSPORTATION CONSULTANT Kristi Dubois DNP, SHOP DIRECTOR, ADVERTISING SALES EXECUTIVE LAB BLOOD ORDERABLES Performing Organization Address City/State/ZIP Code Phon e Number [facility] [address] [facility] [address] [place] [address] Lipid panel (03/22/2018 8:35 AM TRANSPORTATION CONSULTANT) athologist Signature Cholesterol 150 0 - 199 03/22/2018 [facility] mg/dL 12:59 PM [facility] Comment: Recommended by National Cholesterol Education Program (ATP III) -------- Cholesterol Ranges -------- <200 ? Desirable 200-239 ? Borderline high >=240 ? High Triglycerides 90 0 - 149 mg/dL 03/22/2018 12:59 PM T [facility] Comment: -------- TRIG Ranges -------- <150 ?Normal 150-199 ? Borderline high 200-499 ? High >=500 ? Very high HDL 54 40 - 60 mg/dL 03/22/2018 12:59 PM TRANSPORTATION CONSULTANT [facility] Comment: -------- HDL Ranges -------- <40 ?Low 40-59 ?Normal >=60 ? Optimal LDL Calculated 78 0 - 99 mg/dL 03/22/2018 12:59 PM CS T [facility] Comment: -------- LDL Ranges -------- <100 ? Optimal 100-129 ?Near optimal/above op timal 130-159 ?Borderline high 160-189 ?High >=190 ?Very high Fasting? Yes 03/22/2018 8:38 AM TRANSPORTATION CONSULTANT [facility] Specimen Anatomical Collection Method Collection Time Receive d Time (Source) Location / / Volume Laterality Blood (Blood, 03/22/2018 8:35 AM 03/22/20 18 Venous) TRANSPORTATION CONSULTANT 12:20 PM TRANSPORTATION CONSULTANT Kristi Dubois DNP, LIBBY, ADVERTISING SALES EXECUTIVE LAB BLOOD ORDERABLES Performing Organization Address City/State/ZIP Code Phon e Number [facility] [address] [place] [address] documented in this encounter Visit Diagnoses Diagnosis Annual physical exam - Primary Routine general medical examination at a health care facility Encounter for surveillance of contracept sonal pills Screening for diabetes mellitus Screening for hyperlipidemia Screening for lipoid disorders documented in this encounter Care Teams Sales And Leasing Agent Relationship Specialty Start Date End Date Kristi Dubois DNP, SHOP DIRECTOR, ADVERTISING SALES EXECUTIVE PCP - General 12/22/17 03/20/19 documented as of this encounter
--- OUTSIDE RECORDS SUMMARY | 2022-01-13 12:56 | XMS_ITS | Encounter Summary ---
:1985 Author Organization [facility] Address [address] [place] [address] Care Team Providers Name Role Phone Kristi Dubois DNP, COMPUTER OPERATOR, STEM CLEANING MACHINE FEEDER Primary Care Provider Encounter Details Date Type Department Care Team [...] or relatives? How often do you attend taoist or restorationist 1 to 4 times per year 04/17/2020 services? Do you belong to any clubs or organizations Yes 04/17/2020 such as taoist groups, unions, fraternal or athletic groups, or [...] on filedocumented in this encounter Care Teams Asset Recovery Specialist Relationship Specialty Start Date End Date Kristi Dubois, DNP, COMPUTER OPERATOR, STEM CLEANING MACHINE FEEDER PCP - General 12/22/17 03/20/19 documented as of this encounter
--- OUTSIDE RECORDS SUMMARY | 2022-01-13 12:56 | XMS_ITS | Encounter Summary ---
:1985 Author Organization [facility] Address [address] [place] [address] Care Team Providers Name Role Phone Kristi Dubois DNP, JANITOR AND CLEANER, LICENSED PSYCHOLOGIST Primary Care Provider [phone] Reason for Visit Reason Onset Date Comments rx renew 12/06/2018 Encounter Details Date Type Department Care Team Description 12/06/2018 Telephone [place] Carine Campos PA-C rx renew [address] [place] [address] Social History Tobacco Use Types Packs/Day [...] or relatives? How often do you attend samaritan or presybeterian 1 to 4 times per year 04/17/2020 services? Do you belong to any clubs or organizations Yes 04/17/2020 such as samaritan groups, unions, fraternal or athletic groups, or [...] mail that requested prescription was filled at [facility] pharmacy. Telephone Encounter - Carine Campos PA-C - 12/07/2018 2:38 PM CDT Medication refilled. Telephone Encounter - Cheryl Casillas RN - 12/06/2018 3:51 PM CDT Please send requested rx to [facility]. Telephone Encounter - Irene Busch - 12/06/2018 3:32 PM CDT Patient called to say she wanted it sent to [facility] [employer] [facility] in [place] Telephone Encounter - Eduarda Braga LPN - [...] pills documented in this encounter Care Teams Marketing Education Teacher Relationship Specialty Start Date End Date Kristi Dubois, SOFIE, JANITOR AND CLEANER, LICENSED PSYCHOLOGIST PCP - General 12/22/17 03/20/19 documented as of this encounter
--- OUTSIDE RECORDS SUMMARY | 2022-01-13 12:56 | XMS_ITS | Encounter Summary ---
:1985 Author Organization [facility] Address [address] [place] [address] Care Team Providers Name Role Phone Kristi Dubois DNP, DENTAL TECHNOLOGY ADVISOR, BAR ASSISTANT Primary Care Provider [phone] Encounter Details Date Type Department Care Team Description 03/22/2018 [facility] Screening for diabetes melli tus; [address] Screening for hyperlipidemia [place], [place] [address] Social History Tobacco Use Types [...] or relatives? How often do you attend rastafari or church 1 to 4 times per year 04/17/2020 services? Do you belong to any clubs or organizations Yes 04/17/2020 such as rastafari groups, unions, fraternal or athletic groups, or [...] AM Screening for diabetes Results for this FIELD CLERK mellitus procedure are i n the results section. HEMOCUE GLUCOSE Routine 03/22/2018 8:35 AM Screening for diabe anahi Results for this FIELD CLERK mellitus procedure are i n the results section. LIPID PANEL Routine 03/22/2018 8:35 AM Screening for Results for this FIELD CLERK hyperlipidemia procedure are in the results section. documented in this encounter Results Fasting ? (03/22/2018 8:35 AM FIELD CLERK) P athologist Signature Fasting? Yes 03/22/2018 8:38 [facility] ISLAN D AM FIELD CLERK LAB Specimen Anatomical Collection Method Collection Time Receive d Time (Source) Location / / Volume Laterality 03/22/2018 8:35 AM 8 8:35 FIELD CLERK AM FIELD CLERK Kristi Dubois DNP, DENTAL TECHNOLOGY ADVISOR, BAR ASSISTANT LAB BLOOD ORDERABLES Performing Organization Address City/State/ZIP Code Phon e Number [facility] [address] [place] [address] Lipid panel (03/22/2018 8:35 AM FIELD CLERK) P athologist Signature Cholesterol 150 0 - 199 03/22/2018 [facility] mg/dL 12:59 PM [facility] Comment: Recommended by National Cholesterol Education Program (ATP III) -------- Cholesterol Ranges -------- <200 ? Desirable 200-239 ? Borderline high >=240 ? High Triglycerides 90 0 - 149 mg/dL 03/22/2018 12:59 PM T [facility] Comment: -------- TRIG Ranges -------- <150 ?Normal 150-199 ? Borderline high 200-499 ? High >=500 ? Very high HDL 54 40 - 60 mg/dL 03/22/2018 12:59 PM [facility] Comment: -------- HDL Ranges -------- <40 ?Low 40-59 ?Normal >=60 ? Optimal LDL Calculated 78 0 - 99 mg/dL 03/22/2018 12:59 PM CS T [facility] Comment: -------- LDL Ranges -------- <100 ? Optimal 100-129 ?Near optimal/above op timal 130-159 ?Borderline high 160-189 ?High >=190 ?Very high Fasting? Yes 03/22/2018 8:38 AM [facility] Specimen Anatomical Collection Method Collection Time Receive d Time (Source) Location / / Volume Laterality Blood (Blood, 03/22/2018 8:35 AM 03/22/20 18 Venous) FIELD CLERK 12:20 PM FIELD CLERK Kristi Dubois DNP, APRN, BAR ASSISTANT LAB BLOOD ORDERABLES Performing Organization Address City/[facility]/ZIP Code Phon e Number [facility] [address] [place] [phone] HemoCue glucose (03/22/2018 8:35 AM FIELD CLERK) P athologist Signature Glucose, Bld 98 70 - 100 03/22/2018 [facility] mg/dL 8:58 AM [facility] Comment: . Specimen Anatomical Collection Method Collection Time Receive d Time (Source) Location / / Volume Laterality Blood 03/22/2018 8:35 AM 8 8:35 FIELD CLERK AM FIELD CLERK Kristi Dubois DNP, APRN, BAR ASSISTANT LAB BLOOD ORDERABLES Performing Organization Address City/[facility]/ZIP Code Phon e Number [facility] [address] [place] [address] documented in this encounter Visit Diagnoses Diagnosis Screening for diabetes mellitus Screening for hyperlipidemia Screening for lipoid disorders documented in this encounter Care Teams Supervisor Food Checkers And Cashiers Relationship Specialty Start Date End Date Muzic, Kristi J, DNP, DENTAL TECHNOLOGY ADVISOR, BAR ASSISTANT PCP - General 12/22/17 03/20/19 documented as of this encounter
--- OUTSIDE RECORDS SUMMARY | 2022-01-13 12:56 | XMS_ITS | Encounter Summary ---
:1985 Author Organization [facility] Address [address] [place] [address] Care Team Providers Name Role Phone Kristi Dubois DNP, ADVERTISING ACCOUNT EXECUTIVE, GRAPHIC MANAGER Primary Care Provider Encounter Details Date Type Department Care Team Description 03/08/2018 Abstract [facility] Kristi Dubois, SOFIE, [address] [facility] ADVERTISING ACCOUNT EXECUTIVE, [place] [address] [address] [facility] [phone] [place] [id number] Social History Tobacco Use Types Packs/Day Years [...] or relatives? How often do you attend christian or protestant 1 to 4 times per year 04/17/2020 services? Do you belong to any clubs or organizations Yes 04/17/2020 such as christian groups, unions, fraternal or athletic groups, or [...] on filedocumented in this encounter Care Teams Telemarketer Supervisor Relationship Specialty Start Date End Date Kristi Dubois, SOFIE, ADVERTISING ACCOUNT EXECUTIVE, GRAPHIC MANAGER PCP - General 12/22/17 03/20/19 documented as of this encounter
--- OUTSIDE RECORDS SUMMARY | 2022-01-13 12:56 | XMS_ITS | Encounter Summary ---
:1985 Author Organization [facility] Address [address] [place] [address] Care Team Providers Name Role Phone Carine Campos PA-C Primary Care Provider Unavailable Reason for Visit Reason Comments Annual Exam Encounter Details Date Type Department Care Team Description 04/17/2020 Office Visit [place] Carine Campos, Well woman exam (Primary Dx) ; [address] Class 1 obesity due to exces s calories without serious comorbidity with body mass index (BMI) of 31.0 to 31.9 in adult; [place], [place] [address] Encounter for surveillance o f contraceptive pills; [phone] Influenza vacci nation declined Social History Tobacco [...] How often do you attend rastafari or mormon 1 to 4 times per [...] Comments Blood Pressure 120/84 04/17/2020 2:29 PM INFORMATION ENGINEER Pulse 72 04/17/2020 2:29 PM INFORMATION ENGINEER Temperature 36.1 ??C (97 ??F) 04/17/2020 2:29 PM INFORMATION ENGINEER Respiratory Rate 18 04/17/2020 2:29 PM INFORMATION ENGINEER Oxygen Saturation 99% 04/17/2020 2:29 PM INFORMATION ENGINEER Inhaled Oxygen Concentration - - Weight 99.6 kg (219 lb 9.6 oz) 04/17/2020 2:29 PM INFORMATION ENGINEER Height 176.5 cm (5' 9.49) 04/17/2020 2:29 PM INFORMATION ENGINEER Body Mass Index 31.98 04/17/2020 2:29 PM INFORMATION ENGINEER documented in this encounter Patient Instructions Patient [...] and carbon dioxide detector in your home. RMATION ENGINEER documented in this encounter Progress Notes Carine Campos PA-C - 04/17/2020 2:40 PM CST Subjective Patient ID: Ivis Barros is a 34 y.o. female. Chief Complaint Patient presents with ??? Annual Exam HPI Patient presents today for annual exam. She has no questions or concerns today. 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 She needs a refill of her oral [...] allergies. No other questions or concerns today. STONECUTTER HAND history No obstetric history on file. See above. Current Outpatient Medications: ??? [id number] (EXCEDRIN MIGRAINE) 250-250-65 MG per tablet, Take [...] BA, AB, BS) Occupational History ??? Occupation: [employer] Comment: [email or web address] Social Needs ??? Financial resource strain: Not [...] week Gets together: Once a week Attends mormon service: 1 to 4 times per year [...] online virtual fitness classes such as through [facility] or apps such as [employer] or [employer]. See AVS for detailed patient education. Offered [...] errors that went unnoticed. Carine Campos PA-C RMATION ENGINEER documented in this encounter Plan of [...] declined documented in this encounter Care Teams Batter Mixer Relationship Specialty Start Date End Date Carine Campos PA-C PCP - General Family Medicine 03/21/1907/16 documented as of this encounter
--- OUTSIDE RECORDS SUMMARY | 2022-01-13 12:56 | XMS_ITS | Clinical Summary ---
:1985 Author Organization [facility] Address [address] [place] [address] Care Team Providers Name Role Phone Unavailable [...] How often do you attend mandaeism or evangelical 1 to 4 times per year 04/17/2020 [...] Comments Blood Pressure 120/84 04/17/2020 2:29 PM BLACKSMITH APPRENTICE Pulse 72 04/17/2020 2:29 PM BLACKSMITH APPRENTICE Temperature 36.1 ??C (97 ??F) 04/17/2020 2:29 PM BLACKSMITH APPRENTICE Respiratory Rate 18 04/17/2020 2:29 PM BLACKSMITH APPRENTICE Oxygen Saturation 99% 04/17/2020 2:29 PM BLACKSMITH APPRENTICE Inhaled Oxygen Concentration - - Weight 99.6 kg (219 lb 9.6 oz) 04/17/2020 2:29 PM BLACKSMITH APPRENTICE Height 176.5 cm (5' 9.49) 04/17/2020 2:29 PM BLACKSMITH APPRENTICE Body Mass Index 31.98 04/17/2020 2:29 PM BLACKSMITH APPRENTICE Plan of Treatment Health Maintenance Due Date Last Done Comments COVID-19 Vaccine (3 - Booster 02/04/2021 09/04/2020, for Pfizer series) 08/09/2020 Pap Smear 03/21/2022 03/21/2019, 02/13/2016 [facility] Pneumococcal Vaccine: 65+ 10/21/2052 Years (1 - PCV) HPV Vaccines Aged Out No longer eligib le based on patient's age to complete this to [facility] Pneumococcal Vaccine: <64 Aged Out No longer eligible based on patient's age to complete this to [facility] Insurance Payer Benefit Plan / Subscriber ID Effective Dates Phone Addre ss Type Group BCBS OF BCBS OF [id number] 2017-[place] [id number] [place] [address] (Home) [place] [id number]
--- OUTSIDE RECORDS SUMMARY | 2022-01-13 12:56 | XMS_ITS | Encounter Summary ---
:1985 Author Organization [facility] Address [address] [place] [address] Care Team Providers Name Role Phone Unavailable Primary Care Provider Unavailable Encounter Details Date Type Department Care Team Description 03/06/2021 Orders Only SE Family Med Rigo Angela MD [address] [facility] [address] [place] [address] [place] [address] [phone] (Wo rk) Social History Tobacco Use Types [...] or relatives? How often do you attend evangelical or jehovah's witness 1 to 4 times per year 04/17/2020 services? Do you belong to any clubs or organizations Yes 04/17/2020 such as evangelical groups, unions, fraternal or athletic groups, or [...]
--- OUTSIDE RECORDS SUMMARY | 2022-01-13 12:57 | XMS_ITS | Encounter Summary ---
:1985 Author Organization [facility] Address [address] [place] [address] Care Team Providers Name Role Phone Unavailable Primary Care Provider Unavailable Reason for Visit Reason Onset Date Comments Outpatient COVID-19 Testing 02/13/2020 Encounter Details Date Type Department Care Team Description 02/13/2020 External Outreach Department of [facility] Stormy Styles Infection Upper Medicine, [place] Vini PSophieAMurtazaCSophie Respiratory (Primary Clinic, in [place], [address] Dx) [place], [place] [address] [address] [place], [place] [phone] [address] (Work) [phone] Social History Tobacco Use Types Packs/Day Years [...] RNA, V Symptomatic (02/13/2020 12:58 PM CDT) [facility] Method Time Signature SARS-CoV-2 Swab, 02/14/2020 [...] is performed using the Aptima SARS-CoV-2 assay ([employer] which has received Emergency Use Authori zation (EUA) by the U.S. Food and Drug Administration. Fact sheets for this Emergency Use Autho rization (EUA) assay can be found at the following links: For Healthcare Providers: https://www.[employer] a.gov/media/870917/download For Patients: https://www.fda.gov/media/ 988457/download Specimen Anatomical Collection Method Collection Time Receive d Time (Source) Location / / Volume Laterality Varies 02/13/2020 12:58 02/13/2020 9:26 (Nasopharynx) PM CDT PM CDT Rafael Styles P.A.-C. LAB MICROBIOLOGY - GENERAL O RDERABLES Performing Organization Address City/State/ZIP Code Phon e Number [facility]- [address] [place] [address] [phone] [facility] [place] [address] System [address] documented in this encounter Visit Diagnoses Diagnosis Infection Upper Respiratory - Primary documented in this encounter Additional Health Concerns Infection Onset Date Last Indicated Resolved Time COVID19 Pending 02/13/2020 02/13/2020 02/14/2020 3:09 PM CDT documented as of this encounter
--- OUTSIDE RECORDS SUMMARY | 2022-01-13 12:57 | XMS_ITS | Encounter Summary ---
:1985 Author Organization [facility] Address [address] [place] [address] Care Team Providers Name Role Phone Unavailable Primary Care Provider Unavailable Reason for Visit Reason Onset Date Comments Testing For Upper Respiratory Virus Symptoms 01/26/2021 Encounter Details Date Type Department Care Team Description 01/26/2021 External Outreach Department of [facility] Stormy Styles Contact With And Medicine, Sascha Martini P.A.-C. (Suspected) Exposure Clinic, in [address] To COVID-19 (Primary [place], [place] Dx) [address] [facility] [address] [place], [place] [phone] (Work) [phone] Social History Tobacco Use Types Packs/Day Years [...] RNA, V Symptomatic (01/26/2021 9:17 AM CDT) [facility] Method Time Signature SARS-CoV-2 Swab, 01/26/2021 [...] pe rformed using the Aptima SARS-CoV-2 assay ([employer] on the [employer] (PVT)s tem under emergency use authorization (EUA) by the U.S. Food and Drug Administ ration. Fact sheets for this EUA assay can be fo und at the following links: For Healthcare Providers: https://www.[employer] a.gov/media/412420/download For Patients: https://www.fda.gov/media/ 971528/download Specimen Anatomical Collection Method Collection Time Receive d Time (Source) Location / / Volume Laterality Varies 01/26/2021 9:17 AM 3:08 (Nasopharynx) CDT PM CDT Rafale Styles P.A.-C. LAB MICROBIOLOGY - GENERAL O LASHAY Performing Organization Address City/State/ZIP Code Phon e Number [facility]- [address] [place] [address] [phone] [facility] [place] [address] System in [address] [place] [address] documented in this encounter Visit Diagnoses Diagnosis Contact With And (Suspected) Exposure To COVID-19 - Primary documented in this encounter Additional Health Concerns Infection Onset Date Last Indicated Resolved Time COVID19 Pending 01/26/2021 01/26/2021 01/26/2021 8:39 PM CDT documented as of this encounter
--- OUTSIDE RECORDS SUMMARY | 2022-01-13 12:57 | XMS_ITS | Encounter Summary ---
:1985 Author Organization [facility] Address [address] [place] [address] Care Team Providers Name Role Phone Unavailable Primary Care Provider Unavailable Encounter Details Date Type Department Care Team Description 04/03/2020 Admin Visit Department of Family Medicine, [facility] [place] in [place], [place] [address] [place] [address] Social History Tobacco Use Types Packs/Day Years Used Date Smoking Tobacco: Never Sex Assigned at Date Recorded Not on file documented as of this encounter Plan of Treatment Not on filedocumented as of this encounter Visit Diagnoses Not on filedocumented in this encounter Additional Health Concerns Infection Onset Date Last Indicated Resolved Time COVID19 Pending 04/03/2020 04/03/2020 04/04/2020 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
--- OUTSIDE RECORDS SUMMARY | 2022-01-13 12:57 | XMS_ITS | Encounter Summary ---
:1985 Author Organization [facility] Address [address] [place] [address] Care Team Providers Name Role Phone Unavailable Primary Care Provider Unavailable Reason for Visit Reason Comments COVID Nurse Line Encounter Details Date Type Department Care Team Description 02/13/2020 Clinical Communication Division of Brenda Domínguez Nurse [facility] Internal R, R.N. [facility] [address] [place] [address], in [facility] [address] [place] [phone] [place] [address] (Work) [place] [phone] Social History Tobacco Use Types Packs/Day Years [...] to be swabbed for COVID-19, sent to [facility] located at [address] [facility]. Testing hours are M-F 10 am [...] and water aren't available, use a hand shoe repairman that contains at least 60% alcohol. Avoid [...] since you were tested. Educational Resource: https://www.cdc.gov/coronavirus/2019-ncov/ xurwdou-jrvmjrc-oaso/index.html RECOMMENDATIONS TESTING CRITERIA IS MET: Stay home [...] COVID- 19 test result. Education Resources: https://www.cdc.gov/coronavirus/2019- ncov/qu-dti-lri-sick/tweww-okof-gkoi.html SELF CARE FOR ALL PATIENTS: Take breaks from watching, reading, or listening to news stories. Education: Patient/caregiver able to teach back Patient agreeable to plan of care: Yes The following references were used: [facility] novel coronavirus (COVID- 19) resources Nursing judgement documented in this encounter Plan of Treatment Not on filedocumented as of this encounter Visit Diagnoses Not on filedocumented in this encounter
--- OUTSIDE RECORDS SUMMARY | 2022-01-13 12:57 | XMS_ITS | Encounter Summary ---
:1985 Author Organization [facility] Address [address] [place] [address] Care Team Providers Name Role Phone Unavailable [...] Comments Blood Pressure 109/61 05/29/2017 5:49 AM ASSISTANT EXECUTIVE HOUSEKEEPER Pulse 65 05/29/2017 5:49 AM ASSISTANT EXECUTIVE HOUSEKEEPER Temperature - - Respiratory Rate 16 05/29/2017 5:49 AM ASSISTANT EXECUTIVE HOUSEKEEPER Oxygen Saturation - - Inhaled Oxygen Concentration - - Weight 88.8 kg (195 lb 12.3 oz) 05/29/2017 5:49 AM ASSISTANT EXECUTIVE HOUSEKEEPER Height 175 cm (5' 8.9) 05/29/2017 5:49 AM ASSISTANT EXECUTIVE HOUSEKEEPER Body Mass Index 29 05/29/2017 5:49 AM ASSISTANT EXECUTIVE HOUSEKEEPER documented in this encounter Plan of Treatment Not on filedocumented as of this encounter Visit Diagnoses Not on filedocumented in this encounter
--- OUTSIDE RECORDS SUMMARY | 2022-01-13 12:57 | XMS_ITS | Encounter Summary ---
:1985 Author Organization [facility] Address [address] [place] [address] Care Team Providers Name Role Phone Unavailable [...]
--- OUTSIDE RECORDS SUMMARY | 2022-01-13 12:57 | XMS_ITS | Encounter Summary ---
:1985 Author Organization [facility] Address [address] [place] [address] Care Team Providers Name Role Phone Unavailable [...]
--- OUTSIDE RECORDS SUMMARY | 2022-01-13 12:57 | XMS_ITS | Encounter Summary ---
:1985 Author Organization [facility] Address [address] [place] [address] Care Team Providers Name Role Phone Unavailable Primary Care Provider Unavailable Encounter Details Date Type Department Care Team Description 2016 Hospital Encounter HX RST PMR PT OT CON Geraldine Escobar M, O.T. [address] [place] [phone] Social History Tobacco Use Types Packs/Day Years Used Date Smoking Tobacco: Never Assessed Sex Assigned at Date Recorded Not on file documented as of this encounter Plan of Treatment Not on filedocumented as of this encounter Visit Diagnoses Not on filedocumented in this encounter
--- OUTSIDE RECORDS SUMMARY | 2022-01-13 12:57 | XMS_ITS | Encounter Summary ---
:1985 Author Organization [facility] Address [address] [place] [address] Care Team Providers Name Role Phone Unavailable Primary Care Provider Unavailable Reason for Referral Specialty Diagnoses / Procedures Referred By Contact Refer red To Contact Gustabo Castaneda M.D. [facility] Region [address] [facility] [place] [address] Referral ID Status Reason Start Date Expiration Date Visits Requ ested Visits Authorized Encounter Details Date Type Department Care Team Description 08/02/2020 Orders Only [facility] PCP TH BAMT Sa rosendo Champagne M.D. [address] [place], [place] [phone] (Wo rk) Social History [...]
--- OUTSIDE RECORDS SUMMARY | 2022-01-13 12:57 | XMS_ITS | Encounter Summary ---
:1985 Author Organization [facility] Address [address] [place] [address] Care Team Providers Name Role Phone Unavailable Primary Care Provider Unavailable Reason for Visit Reason Onset Date Comments Outpatient COVID-19 Testing 04/03/2020 Encounter Details Date Type Department Care Team Description 04/03/2020 External Outreach Department of [facility] Stormy Styles Infection Upper Medicine, [place] Vini PSophieAMurtazaCSophie Respiratory (Primary Clinic, in [place], [address]) [place], [place] [address] [address] [place], [place] [phone] (Work) [phone] Social History Tobacco Use Types Packs/Day Years Used Date Smoking Tobacco: Never Sex Assigned at Date Recorded Not on file documented as of this encounter Progress Notes Sonia Iraheta L.P.N. - 04/03/2020 1:51 PM CST Encounter created for the drive-through COVID-19 testing. NCILIATION CLERK documented in this encounter Plan of Treatment Not on filedocumented as of this encounter Procedures Procedure Name Priority Date/Time Associated Diagnosis Comme nts SARS CORONAVIRUS-2 Routine 04/03/2020 2:19 PM Infection Upper Results for this RNA, V RECONCILIATION CLERK Respiratory procedure are i n the results section. documented in this encounter Results SARS Coronavirus-2 RNA, V Symptomatic (04/03/2020 2:19 PM RECONCILIATION CLERK) [facility] Method Time Signature SARS-CoV-2 Swab, 04/04/2020 ECLR Specimen Nasopharynx 12:31 PM Source RECONCILIATION CLERK SARS CoV-2 Undetected Undetected 04/04/2020 ECLR RNA, TMA 12:31 PM RECONCILIATION CLERK Comment: SARS-CoV-2 RNA absent. This result does not rule out COVID-19 in the patient, as the sensitivity of the test depends o n the timing of the specimen collection and the quality of the specim en. Result should be correlated with patient's history and clinical presentat ion. ----ADDITIONAL INFORMATION---- This test is performed using the Aptima SARS-CoV-2 assay ([employer] which has received Emergency Use Authori zation (EUA) by the U.S. Food and Drug Administration. Fact sheets for this Emergency Use Autho rization (EUA) assay can be found at the following links: For Healthcare Providers: https://www.[employer] a.gov/media/144954/download For Patients: https://www.fda.gov/media/ 574665/download Specimen Anatomical Collection Method Collection Time Receive d Time (Source) Location / / Volume Laterality Varies 04/03/2020 2:19 PM 0 9:58 (Nasopharynx) RECONCILIATION CLERK PM RECONCILIATION CLERK Rafael Styles P.A.-C. 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
--- OUTSIDE RECORDS SUMMARY | 2022-01-13 12:57 | XMS_ITS | Encounter Summary ---
:1985 Author Organization [facility] Address [address] [place] [address] Care Team Providers Name Role Phone Unavailable Primary Care Provider Unavailable Encounter Details Date Type Department Care Team Description 01/26/2021 Admin Visit Department of Family Rafael Styles, Medicine, [facility]. in [facility] [address] [facility] [address] [place] [address] [place] [address] [phone] Social History Tobacco Use Types Packs/Day Years [...]
--- OUTSIDE RECORDS SUMMARY | 2022-01-13 12:57 | XMS_ITS | Encounter Summary ---
:1985 Author Organization [facility] Address [address] [place] [address] Care Team Providers Name Role Phone Unavailable Primary Care Provider Unavailable Reason for Referral Specialty Diagnoses / Procedures Referred By Contact Refer red To Contact [facility] [address] [place] [address] Referral ID Status Reason Start Date Expiration Date Visits Requ ested Visits Authorized Encounter Details Date Type Department Care Team Description 08/09/2020 Immunization Department of Lee Swenson For COVID-19 Medicine, [place] Oralia Key Vaccine Immunization [facility], [address] (Primary Dx) in [place], [place] [address] [facility] [id number] [place] [address] Social History Tobacco Use Types Packs/Day [...]
--- OUTSIDE RECORDS SUMMARY | 2022-01-13 12:57 | XMS_ITS | Encounter Summary ---
:1985 Author Organization [facility] Address [address] [place] [address] Care Team Providers Name Role Phone Unavailable Primary Care Provider Unavailable Encounter Details Date Type Department Care Team Description 04/03/2020 Clinical Communication Department of [facility] in [place], [place] [address] [place] [address] Social History Tobacco Use Types Packs/Day Years Used Date Smoking Tobacco: Never Sex Assigned at Date Recorded Not on file documented as of this encounter Plan of Treatment Not on filedocumented as of this encounter Visit Diagnoses Not on filedocumented in this encounter Additional Health Concerns Infection Onset Date Last Indicated Resolved Time COVID19 Pending 04/03/2020 04/03/2020 04/04/2020 12:32 PM TUBE COREM[employer]ER documented as of this encounter
--- OUTSIDE RECORDS SUMMARY | 2022-01-13 12:57 | XMS_ITS | Encounter Summary ---
:[address] [facility] Address [address] [place] [address] Care Team Providers Name Role Phone Unavailable [...]
--- OUTSIDE RECORDS SUMMARY | 2022-01-13 12:57 | XMS_ITS | Encounter Summary ---
:1985 Author Organization [facility] Address [address] [place] [address] Care Team Providers Name Role Phone Unavailable [...] Electronically signed by: ?? Yue Bhandari MD [phone] 29-Sep-2016 18:28 I have reviewed the films/images and agr ee with the above interpretation. Electronically signed by: ?? Lore Garnica ??Oralia [phone] 29-Sep-2016 19 :11 Narrative 09/29/2016 7:11 PM [...] acquired. Electronically signed by: Yue Bhandari MD [phone] 29-Sep-2016 18:28 I have reviewed the films/images and agr ee with the above interpretation. Electronically signed by: Lore Garnica M.D. [phone] 29-Sep-2016 19:1 1 Sebastien Mirza M.D. IMG [...]
--- NOTE | 2022-01-13 13:33 | W.PM.LAC.BC ---
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 Delivery Information Delivery method: Vaginal Weeks Gestation: 39.2 Gestational Age: LGA Weight: 4.075 kg Discharge Weight: 3.87 kg Patient Information Baby's Age at Visit: 1 month Baby's Provider or Clinic: Robert Donnelly Reason for Consult Reason for Consult: pre and post weight check, pump questions Past Experience Past Experience: No Current Frequency of Day Feedings: every 3 hours Frequency of Night Feedings: will sleep 4 - 5 hours between feeding at night Both Breasts: Yes Suck: not very aggressive Latch: wide Length of Time: 10 - 15 min/side Pumping Pumping: No Supplementing EMB Supplement: No Formula Supplement: No Baby Elimination Number of Wet Diapers a Day: with almost every feeding Number of BM a Day: with almost every feeding Mom's Breast/Nipple Condition Breast Information: WNL Engorgement: No Maternal Nipple Condition - Left: Common Nipple Maternal Nipple Condition - Right: Common Nipple Sore Nipples: No Onsite Pre-Feed weight: 4.668 kg Post-Feed weight: 4.776 kg Milk Transferred (mL): 108 Pre-Nursing Left Nipple: Within Normal Limits Pre-Nursing Right Nipple: Within Normal Limits Post-Nursing Left Nipple: Within Normal Limits Post-Nursing Right Nipple: Within Normal Limits Assessments/Interventions Assessments/Interventions: Met with mom and this now one month old ex- term LGA baby for consult. Mom reports has gone well- baby was dx'd with thrush and is on day 10 of a course of Nystatin. Baby is nursing every 3 hours during the day and will sleep for 4 - 5 hours between feedings at night; she nurses for 10 - 15 minutes/side. Mom has not started pumping and baby has not been introduced to the bottle. Breasts WNL- symmetrical with rounded lower quadrants; intramammary distance is < 1.5 inches. Nipples are everted and don't flatten or retract with compression. No damage noted and no s/s of yeast, mom also denies any symptoms. Baby has gained 43 grams/day since her last visit on 12/31 and is plotting along the 75th percentile on the growth chart. Per mom she tends to prefer looking to her right, but has equal ROM when moving her extremities. Mom denies any caput/cephalohematoma/bruising or shoulder dystocia at delivery. Baby has a somewhat higher than normal palate and isn't that aggressive when sucking on a finger. Her upper and lower frenulum are WNL. She can easily extend her tongue past the gum line and the tongue has good lateral movement. No yeast visible on baby's cheeks or gums, is visible on her tongue; mom thinks it's somewhat improved. Mom latched baby to both sides and baby appeared to have a fairly wide latch, lips were flanged. She denied any pain but stated she really didn't feel anything. Baby nursed for about 20 minutes on the left side, popping off and on after about 10 minutes but re-latched when mom was coached to firm her breast, point nipple to nose, and bring baby on quickly when she opened her mouth. She then offered the right side and baby nursed another 15 - 20 minutes transferring 108 ml total (3.6 oz). Mom's Spectra pump and paced feeding was reviewed. Suggested she order the 20 mm flanges and a flange fit guide as well as paced feeding handout was given. Plan: 1. Continue nursing baby on both sides ALD (aim for 7 - 8 nursing sessions in 24 hours). 2. Suggested mom pump once/day or every few days for 15 - 20 minutes so dad can teach baby how to take a bottle. 3. Suggested dad offer baby a bottle of EBM once/day or every few days by paced feeding. 4. Encouraged her to complete a 14 day course of Nystatin and to call PCP if still not resolved. 5. Gave ideas to help with baby's ROM. 6 Encouraged mom to come to [facility] and/or to call with any future questions/concerns. 7. F/U with baby's PCP for a 2 month C.
== END 2022-01-13 12:54 | disposition home or self-care (01) ==
LOC: OB LAC 12:54
PROVIDERS: Visit Provider Advanced Practice Midwife
DX: Z39.1 Encounter for care and examination of lactating mother (principal)
CPT/HCPCS: 99211

== ENCOUNTER 2024-01-12 13:41 | Outpatient (CLI) | payer BC, SELFPAY ==
--- NOTE | 2024-01-12 14:00 | CRLHL7_ITS ---
For Patients: As a result of the Century Cures Act, medical imaging exams and procedure reports are released immediately into your electronic medical record. You may view this report before your referring provider. If you have questions, please contact your health care provider. INDICATION: No pole seen TECHNIQUE: Ultrasound OB pelvis transvaginal. Real-time harris-scale imaging of the pelvis was performed. COMPARISON: None FINDINGS: Intrauterine gestational sac with enlarged yolk sac. The yolk sac measures 7 x 5 x 5 millimeters. Mean gestational sac diameter is 3.0 centimeters. No embryo seen. Small perigestational bleed measuring 11 x 10 x 7 millimeters. Maternal right ovary measures 3.0 x 2.1 x 2.3 centimeters. Maternal right ovarian cyst measuring 1.7 centimeters. Maternal left ovary measures 3.3 x 1.6 x 2.1 centimeters. IMPRESSION: Intrauterine gestational sac with a mean gestational sac diameter of 30 millimeters. Yolk sac identified, however no embryo is present on today`s exam. Findings are diagnostic of failure. Dictated by Dalton Perry MD @ 01/12/2024 2:54:32 PM (Electronically Signed)
== END 2024-01-12 13:42 | disposition home or self-care (01) ==
LOC: US 13:41
PROVIDERS: PCP Nurse Practitioner Family; Visit Provider Physician Assistant
DX: Z34.90 Encounter for supervision of normal pregnancy, unspecified, unspecified trimester (principal)
CPT/HCPCS: 76817

== ENCOUNTER 2024-01-19 09:35 | Day surgery (SDC) | payer BC, SELFPAY ==
[2024-01-19] MEDS: LACTATED RINGERS 1000 ML 1,000 ML 100 ML IV (09:45)
[2024-01-19 09:56] VITALS: BMI 37.6
[2024-01-19] MEDS: SODIUM CHLORIDE 0.9 % (FLUSH) 10 ML SYRINGE IVF (09:59)
--- NOTE | 2024-01-19 10:05 | P.GYNPRC_ITS ---
Procedure Note Date of procedure: 01/19/24 Will [facility] bill your pro fee for this procedure?: Yes Pre-op diagnosis: Missed . Post-op diagnosis: Same. Procedure: Suction curettage. Anesthesia: MAC and local (paracervical block) Complications: None. Surgeon: Zoila Upton MD Estimated blood loss (mL): 10 Pathology: specimen obtained, sent to pathology Condition: stable Disposition: same day Findings: Moderate amount of products of conception. Procedure Description: After obtaining informed consent, the patient was taken to the operating room where she received monitored anesthesia care. She was prepared and draped in the normal, sterile fashion in the dorsal lithotomy position. One hundred mg of IV doxycycline was administered intravenously. An examination was performed under anesthesia which demonstrated a normal sized anteverted uterus. An open-sided bivalve speculum was placed into the vagina and the cervix easily visualized. The anterior lip of the cervix was grasped with a single-tooth tenaculum for traction. A paracervical block was administered using a total of 20 mL of a 50:50 mixture of 1% lidocaine and 0.25% Marcaine, plain. A sound was gently inserted through the cervical os into the uterus to the level of the fundus. Sound length was 10 cm. The cervix was gently dilated using Hegar dilators to a #9 dilator. A 9 mm rigid, curved suction cannula was advanced through the cervical os into the uterine cavity. Gentle suction was applied, and the uterine lining gently curetted. A moderate amount of products of conception and blood was removed. The suction cannula was removed. The uterine lining was gently explored using a sharp curette, and a gritty feel was felt throughout. One final pass was made with the suction cannula, no further tissue was recovered. All instruments were then removed. The patient tolerated the procedure well. Sponge, lap, and needle counts were reported as correct x2. The patient was taken to the recovery room awake and in stable condition.
--- NOTE | 2024-01-19 10:18 | W.ANESCHARGE ---
Anesthesia Charges Start Date/Time Anesthesia Start Date: 01/19/24 Anesthesia Start Time: 10:30 Stop Date/Time Anesthesia Stop Date: 01/19/24 Anesthesia Stop Time: 11:09
[2024-01-19] MEDS: DOXYCYCLINE HYCLATE 200 MG in 0.9 % SODIUM CHLORIDE 250 ml 250 ML 250 MG IVPB (10:20)
[2024-01-19 10:27] VITALS: BP 122/78; PULSE 72; RESP 16; TEMP 36.7; O2SAT 99
[2024-01-19] MEDS: BUPIVACAINE 0.25% 30 ML 10 ML INJECTION (10:50)
[2024-01-19] MEDS: LIDOCAINE 1% MDV 10 ML INJECTION (10:50)
[2024-01-19 11:07] VITALS: BP 100/63; PULSE 58; RESP 16; TEMP 36.5; O2SAT 99
[2024-01-19 11:30] VITALS: BP 100/67; PULSE 47; RESP 16; O2SAT 100
[2024-01-19 11:45] VITALS: BP 102/67; PULSE 55; RESP 16; O2SAT 100
[2024-01-19 12:00] VITALS: BP 105/67; PULSE 56; RESP 16; O2SAT 100
== END 2024-01-19 13:06 | disposition home or self-care (01) ==
PROVIDERS: PCP Nurse Practitioner Family; Visit Provider Obstetrics & Gynecology
PROC: (CPT 59820; principal; 2024-01-19 11:00)
DX: O02.1 Missed abortion (principal)
CPT/HCPCS: 59820; 01965; 88305; J0665; J1885; J2250; J2405; J2704; J3010; J7050; J7120

== ENCOUNTER 2024-05-24 08:57 | Outpatient (CLI) | payer BC, SELFPAY ==
--- NOTE | 2024-05-24 09:15 | CRLHL7_ITS ---
For Patients: As a result of the Century Cures Act, medical imaging exams and procedure reports are released immediately into your electronic medical record. You may view this report before your referring provider. If you have questions, please contact your health care provider. INDICATION: First trimester scan, establish dates. COMPARISON: None. TECHNIQUE: Real-time harris-scale imaging of the pelvis was performed. FINDINGS: Sonographic imaging demonstrates a single living intrauterine gestation. The embryo demonstrates a regular cardiac rate measuring 173 beats per minute. The embryo`s crown-rump length measurement of 3.5 cm corresponds to a gestational age of 10 weeks 3 days with a sonographic due date of 12/17/2024. There is a normal-appearing yolk sac. There are no gross abnormalities noted within the embryo at this early state of development. The gestational sac has a normal appearance. There is no evidence of a perigestational hemorrhage. The amount of fluid within the sac appears appropriate for gestational age. The cervix is closed. The myometrium appears normal. Corpus luteal cyst left ovary. Right ovary not visualized. There are no suspicious fluid collections noted in the cul-de-sac. IMPRESSION: Single living intrauterine measuring 10 weeks 3 days and sonographic due date 12/17/2024. Dictated by Erlin Barragan MD @ 05/24/2024 12:56:30 PM (Electronically Signed)
== END 2024-05-24 08:58 | disposition home or self-care (01) ==
LOC: US 08:58
PROVIDERS: PCP Nurse Practitioner Family; Visit Provider Physician Assistant
DX: Z34.91 Encounter for supervision of normal pregnancy, unspecified, first trimester (principal); Z3A.10 10 weeks gestation of pregnancy
CPT/HCPCS: 76817; 83021; 86592; 86703; 86704; 86706; 86762; 86787; 86803; 86850; 86900; 86901; 87086; 87340; 87491; 87591

== ENCOUNTER 2024-08-03 08:28 | Outpatient (CLI) | payer BC, SELFPAY | END 2024-08-03 08:29 | disposition home or self-care (01) | LOC: US 08:28 | PROVIDERS: PCP Nurse Practitioner Family; Visit Provider Physician Assistant | DX: O09.522 Supervision of elderly multigravida, second trimester (principal); Z3A.19 19 weeks gestation of pregnancy | CPT/HCPCS: 76811 ==

== ENCOUNTER 2024-09-19 08:13 | Outpatient (CLI) | payer BC, SELFPAY | END 2024-09-19 08:14 | disposition home or self-care (01) | LOC: NFLDREF 09-22 23:17 | PROVIDERS: PCP Nurse Practitioner Family; Referring Provider Nurse Practitioner Family; Visit Provider Obstetrics & Gynecology | DX: O09.522 Supervision of elderly multigravida, second trimester (principal); Z3A.26 26 weeks gestation of pregnancy | CPT/HCPCS: 86592 ==

== ENCOUNTER 2024-10-18 07:58 | Outpatient (CLI) | payer BC, SELFPAY ==
--- NOTE | 2024-10-18 08:15 | CRLHL7_ITS ---
For Patients: As a result of the Century Cures Act, medical imaging exams and procedure reports are released immediately into your electronic medical record. You may view this report before your referring provider. If you have questions, please contact your health care provider. OB ULTRASOUND LEESA by LMP: 12/22/2024. GA: 30 w, 5 d. Single. COMPARISON: Ultrasound 08/03/2024. INDICATION: AMA. TECHNIQUE: Real time harris scale imaging of the fetus was performed. Transabdominal imaging performed. CERVIX: Not visualized. POSITIONING: Breech. AMNIOTIC FLUID: 27.2 cm. 11.4 cm. SDP (N: greater than 2 x 1 cm). PLACENTA: Technique: Transabdominal. PLACENTA POSITION: Posterior. DOPPLER: heart rate: 149 bpm. BIOMETRY: BPD: 8.4 cm. 33 w, 6 d, greater than 97 percent. HC: 31.2 cm. 34 w, 6 d, greater than 97 percent. AC: 29.6 cm. 33 w, 4 d, greater than 97 percent. FL: 6.1 cm. 31 w, 6 d, 67 percent. FL/AC ratio: 20.70 percent. HC/AC ratio: 1.05. EFW: 2151 g. Weight: 4 lbs, 12 oz. age by this US: 33 w, 4 d. LEESA by this US: 12/02/2024. Percentile by LEESA: greater than 97 percent. IMPRESSION: 1. Sonographic gestational age 33 weeks 4 days and sonographic due date 12/02/2024. Sonographic age is 20 days ahead of the clinical age. 2. Estimated weight greater than 97th percentile. BPD, HC and AC greater than 97th percentile. 3. Amniotic fluid single deepest pocket 11.4 cm. SANCHEZ 27.2 cm. Erlin Barragan M.D. Diagnostic Radiologist [email or web address] ROXANNE/Dictated by: Erlin Barragan MD @ 10/18/2024 9:51:00 PM (Electronically Signed)
== END 2024-10-18 07:59 | disposition home or self-care (01) ==
LOC: US 07:58
PROVIDERS: PCP Nurse Practitioner Family; Visit Provider Obstetrics & Gynecology
DX: O09.523 Supervision of elderly multigravida, third trimester (principal); O36.63X0 Maternal care for excessive fetal growth, third trimester, not applicable or unspecified; Z3A.30 30 weeks gestation of pregnancy
CPT/HCPCS: 76816

== ENCOUNTER 2024-11-01 07:05 | Outpatient (CLI) | payer BC, SELFPAY ==
--- NOTE | 2024-11-01 07:15 | CRLHL7_ITS ---
For Patients: As a result of the Cures Act, medical imaging exams and procedure reports are released immediately into your electronic medical record. You may view this report before your referring provider. If you have questions, please contact your health care provider. OBSTETRICAL ULTRASOUND ??? LIMITED, 11/01/2024 INDICATION: Polyhydramnios. High BMI. CLINICAL HISTORY: LMP: 03/17/2024 LEESA by LMP: 12/22/2024 Gestational Age: 32 weeks 5 days COMPARISON: 10/18/2024, 08/03/2024, 05/24/2024. TECHNIQUE: Real-time harris-scale transabdominal imaging of the fetus was performed. FINDINGS: Fetus: Single Cervix: Not visualized positioning: Vertex Amniotic Fluid: SANCHEZ: 25.7 cm 8.4 cm SDP Placenta technique: Transabdominal Placenta position: Posterior heart rate: 138 bpm IMPRESSION: Amniotic fluid single deepest pocket is 8.4 cm. Four-quadrant SANCHEZ is 25.7 cm. ERLIN KUHN M.D. Diagnostic Radiologist [email or web address] Transcribed: 10:[address]/Dictated by: Erlin Kuhn MD @ 11/01/2024 9:19:00 AM (Electronically Signed)
== END 2024-11-01 07:06 | disposition home or self-care (01) ==
LOC: US 07:05
PROVIDERS: PCP Nurse Practitioner Family; Visit Provider Obstetrics & Gynecology
DX: O40.3XX0 Polyhydramnios, third trimester, not applicable or unspecified (principal); O99.213 Obesity complicating pregnancy, third trimester; Z3A.32 32 weeks gestation of pregnancy
CPT/HCPCS: 76815

== ENCOUNTER 2024-11-14 07:14 | Outpatient (CLI) | payer BC, SELFPAY ==
--- NOTE | 2024-11-14 07:15 | CRLHL7_ITS ---
For Patients: As a result of the Cures Act, medical imaging exams and procedure reports are released immediately into your electronic medical record. You may view this report before your referring provider. If you have questions, please contact your health care provider. OB ULTRASOUND BIOPHYSICAL PROFILE/FOLLOW-UP LIMITED, 11/14/2024 CLINICAL HISTORY: Obesity, polyhydramnios. COMPARISON: 11/01/2024, 08/03/2024. TECHNIQUE: Real time harris scale imaging of the fetus was performed. Transabdominal imaging performed. FINDINGS: LEESA by LMP: 12/22/2024. GA: 34 weeks 4 days. Gestation: Single. Cervix: Not visualized. Positioning: Vertex. Amniotic Fluid: 33.4 cm SANCHEZ. 12.1 cm SDP. BIOPHYSICAL PROFILE: Gross Body Movements: 2 Tone: 2 Respiratory Activity: 2 Amniotic Fluid: 2 Total Score: 8/8 Placenta: Technique: TA. Placenta Position: Posterior. Dopplers: Heart Rate: 130 bpm. BIOMETRY: BPD: 9.4 cm, 38 weeks 1 day. >97% HC: 34.0 cm, 39 weeks 1 day. >97% AC: 33.8 cm, 37 weeks 5 days. >97% FL: 6.7 cm, 34 weeks 4 days. 40% FL/AC Ratio: 19.88% HC/AC Ratio: 1.01. IMPRESSION: 1. Normal biophysical profile score 8/8. 2. Sonographic gestational age 37 weeks 3 days and sonographic due date 12/02/2024. Sonographic age 20 days ahead of the clinical age. 3. Estimated weight greater than 97th percentile. BPD, HC and AC greater than 97th percentile. 4. Amniotic fluid single deepest pocket 12.1 cm. SANCHEZ 33.4 cm. Erlin Barragan M.D. Diagnostic Radiologist [email or web address] Transcribed: 8:32 am DW/Dictated by: Erlin Barragan MD @ 11/14/2024 8:17:00 AM (Electronically Signed)
== END 2024-11-14 07:15 | disposition home or self-care (01) ==
PROVIDERS: PCP Nurse Practitioner Family; Visit Provider Obstetrics & Gynecology
DX: O99.213 Obesity complicating pregnancy, third trimester (principal); O36.63X0 Maternal care for excessive fetal growth, third trimester, not applicable or unspecified; O40.3XX0 Polyhydramnios, third trimester, not applicable or unspecified; Z3A.34 34 weeks gestation of pregnancy
CPT/HCPCS: 76816; 76819

== ENCOUNTER 2024-11-22 10:04 | Outpatient (CLI) | payer BC, SELFPAY ==
--- NOTE | 2024-11-22 10:15 | CRLHL7_ITS ---
For Patients: As a result of the Cures Act, medical imaging exams and procedure reports are released immediately into your electronic medical record. You may view this report before your referring provider. If you have questions, please contact your health care provider. OB ULTRASOUND BIOPHYSICAL PROFILE, 11/22/2024 CLINICAL HISTORY: Polyhydramnios. COMPARISON: 11/14/2024, 11/01/2024, 10/18/2024. TECHNIQUE: Real time harris scale imaging of the fetus was performed. Transabdominal imaging performed. FINDINGS: LMP: 03/17/2024. LEESA by LMP: 12/22/2024. GA: 35 weeks 5 days. Gestation: Single. Cervix: Not visualized. Positioning: Vertex. Amniotic Fluid: 32.1 cm SANCHEZ. 11.3 cm SDP. BIOPHYSICAL PROFILE Gross Body Movements: 2 Tone: 2 Respiratory Activity: 2 Amniotic Fluid SDP: 2 Total Score: 8 Placenta: Technique TA. Placenta Position: Posterior. Dopplers: Heart Rate: 144 bpm. IMPRESSION: 1. Normal biophysical profile score of /. 2. Amniotic fluid single deepest pocket 11.3 cm. SANCHEZ 32.1 cm. Erlin Barragan M.D. Diagnostic Radiologist [email or web address] Transcribed: 11:26 am DW/Dictated by: Erlin Barragan MD @ 11/22/2024 10:52:00 AM (Electronically Signed)
== END 2024-11-22 10:05 | disposition home or self-care (01) ==
LOC: US 10:04
PROVIDERS: PCP Nurse Practitioner Family; Visit Provider Obstetrics & Gynecology
DX: O40.3XX0 Polyhydramnios, third trimester, not applicable or unspecified (principal); Z3A.35 35 weeks gestation of pregnancy; Z34.90 Encounter for supervision of normal pregnancy, unspecified, unspecified trimester
CPT/HCPCS: 76819

== ENCOUNTER 2024-11-22 11:05 | Outpatient (CLI) | payer BC, SELFPAY ==
[2024-11-23 09:47] LABS: Strep B DNA Probe Negative (Negative)
[2024-11-23 10:12] LABS: Strep B Susceptibility Needed? No
== END 2024-11-22 11:06 | disposition home or self-care (01) ==
LOC: NFLDREF 11:06
PROVIDERS: PCP Nurse Practitioner Family; Visit Provider Obstetrics & Gynecology
DX: Z34.90 Encounter for supervision of normal pregnancy, unspecified, unspecified trimester (principal)
CPT/HCPCS: 87081; 87653

== ENCOUNTER 2024-11-28 07:10 | Outpatient (CLI) | payer BC, SELFPAY ==
--- NOTE | 2024-11-28 07:15 | CRLHL7_ITS ---
For Patients: As a result of the Cures Act, medical imaging exams and procedure reports are released immediately into your electronic medical record. You may view this report before your referring provider. If you have questions, please contact your health care provider. OB ULTRASOUND LEESA by LMP or LEESA by US: 12/22/2024. GA: 36 w, 4 d. Single. Comparison: Ultrasound 11/22/2024, 11/14/2024, 11/01/2024, 10/18/2024. INDICATION: Polyhydramnios. Obesity. TECHNIQUE: Real time grayscale imaging of the fetus was performed. Transabdominal. CERVIX: Not visualized. POSITIONING: Vertex. AMNIOTIC FLUID: 33.8 cm SANCHEZ. 10.9 cm. SDP (N: greater than 2 x 1 cm) BIOPHYSICAL PROFILE: 2: Gross body movements 2: tone 2: Respiratory activity 2: Amniotic fluid SDP (N: greater than 2 x 1 cm) 8/8: Total score PLACENTA: Technique: Transabdominal. PLACENTA POSITION: Posterior. DOPPLER: heart rate: 144 bpm. IMPRESSION: 1. Normal biophysical profile score 8/8. 2. Amniotic fluid single deepest pocket 10.9 cm. SANCHEZ 33.8 cm. Erlin Barragan M.D. Diagnostic Radiologist [email or web address] REJI/toi cm/Dictated by: Erlin Barragan MD @ 11/28/2024 9:13:00 AM (Electronically Signed)
== END 2024-11-28 07:11 | disposition home or self-care (01) ==
LOC: US 07:11
PROVIDERS: PCP Nurse Practitioner Family; Visit Provider Obstetrics & Gynecology
DX: O40.3XX0 Polyhydramnios, third trimester, not applicable or unspecified (principal); O99.213 Obesity complicating pregnancy, third trimester; Z3A.36 36 weeks gestation of pregnancy
CPT/HCPCS: 76819

== ENCOUNTER 2024-12-05 09:33 | Outpatient (CLI) | payer BC, SELFPAY ==
--- NOTE | 2024-12-05 10:15 | CRLHL7_ITS ---
For Patients: As a result of the Cures Act, medical imaging exams and procedure reports are released immediately into your electronic medical record. You may view this report before your referring provider. If you have questions, please contact your health care provider. OB ULTRASOUND BIOPHYSICAL PROFILE, 12/05/2024 CLINICAL HISTORY: Non-reactive NST, known polyhydramnios. COMPARISON: 10/18, 11/01, 11/14, 11/22, 11/28. TECHNIQUE: Multiple transabdominal harris-scale, color and M-mode Doppler images obtained. FINDINGS: LEESA by LMP: 12/22/2024. GA: 37 weeks 4 days. Gestation: Single. Cervix: Not visualized. Positioning: Vertex. Amniotic Fluid: 31.2 cm SANCHEZ. 11.1 cm SDP. BIOPHYSICAL PROFILE: Gross body movements: 2 Tone: 2 Respiratory Activity: 2 Amniotic fluid SDP: 2 Total score: 8 Placenta: Technique: TA. Placenta position: Posterior. Dopplers: heart rate: 161 bpm. IMPRESSION: 1. Normal biophysical profile score of 8/8. 2. Polyhydramnios. Nik Hutchison M.D. Body/Diagnostic Radiologist [email or web address] Transcribed: 9:58 am DW/Dictated by: Nik Hutchison MD @ 12/07/2024 9:25:00 AM (Electronically Signed)
== END 2024-12-05 09:34 | disposition home or self-care (01) ==
LOC: US 09:34
PROVIDERS: PCP Nurse Practitioner Family; Visit Provider Obstetrics & Gynecology
DX: O40.3XX0 Polyhydramnios, third trimester, not applicable or unspecified (principal); Z3A.37 37 weeks gestation of pregnancy
CPT/HCPCS: 76819

== ENCOUNTER 2024-12-05 10:18 | Outpatient (CLI) | payer BC, SELFPAY ==
[2024-12-05 10:34] VITALS: PULSE 75; O2SAT 97
[2024-12-05 10:35] VITALS: BP 119/80; PULSE 76; TEMP 36.8
--- NOTE | 2024-12-05 12:10 | PC.OBNST ---
NST Note NST Note Start: 12/05/24 10:23 Freq: ONCE Status: Active Protocol: Document 12/05/24 11:52 ALZ (Rec: 12/05/24 12:10 ALZ No Response) NST Note 3 Para (# of births) 1 EDC 12/22/24 Gestational Age In 37 Weeks & 4 Days Weeks & Days Patient Presented Other with Complaint(s) of Other Complaints Sent from clinic, here to monitor FHR. In clinic they thought baby had baseline tachycardia with variables. Reactive Yes Appropriate for Yes Gestational Age RN Nancy Cheney RN Date 12/05/24 Reactive Yes Appropriate for Yes Gestational Age DULCE Mcbride RN Date 12/05/24 OB NST charge Yes Complete NST Note Yes via Write Note The provider's electronic signature indicates the NST is reactive/appropriate for gestational age. *Note to provider: If an addendum is required, open the patient's chart and click on the note under the Nurse/Allied Health tab.
== END 2024-12-05 11:53 | disposition home or self-care (01) ==
LOC: OB OUT 10:19 → OB 10:20
PROVIDERS: PCP Nurse Practitioner Family; Visit Provider Obstetrics & Gynecology
DX: O36.8330 Maternal care for abnormalities of the fetal heart rate or rhythm, third trimester, not applicable or unspecified (principal); Z3A.37 37 weeks gestation of pregnancy
CPT/HCPCS: 59025; G0463

== ENCOUNTER 2024-12-12 07:06 | Outpatient (CLI) | payer BC, SELFPAY ==
--- NOTE | 2024-12-12 07:15 | CRLHL7_ITS ---
For Patients: As a result of the Cures Act, medical imaging exams and procedure reports are released immediately into your electronic medical record. You may view this report before your referring provider. If you have questions, please contact your health care provider. OB ULTRASOUND BIOPHYSICAL PROFILE, 12/12/2024 CLINICAL HISTORY: Obesity. Polyhydramnios. History of macrosomia. COMPARISON: 12/05/2024, 11/28/2024, 12/02/2024, 11/14/2024. TECHNIQUE: Real time harris scale imaging of the fetus was performed. Transabdominal and transvaginal imaging performed. Multiple transabdominal harris-scale, color and M-mode Doppler images obtained. FINDINGS: LEESA by LMP: 12/22/2024. GA: 38 weeks 4 days. Gestation: Single. Cervix: Not visualized. Positioning: Vertex. Amniotic Fluid: 40.3 cm SANCHEZ. 12.3 cm SDP. BIOPHYSICAL PROFILE: Gross Body Movements: 2 Tone: 2 Respiratory Activity: 2 Amniotic Fluid SDP: 2 Total Score: 8 Placenta: Technique: TA. Placenta Position: Posterior. Dopplers: Heart Rate: 134 bpm. BIOMETRY: BPD: 10.1 cm, 41 weeks 4 days. >97% HC: 36.8 cm, OOR. >97% AC: 40.0 cm, OOR. >97% FL: 7.7 cm, 39 weeks 2 days. 74% FL/AC Ratio: 19.22% HC/AC Ratio: 0.92. EFW: 4879 grams, 10 lb 12 oz. age by this US: 40 weeks 3 days. LEESA by this US: 12/22/2024. Percentile by LEESA: >97% IMPRESSION: 1. weight is greater than 97th percentile. 2. Polyhydramnios. 3. BPP score 8/8. Nik Hutchison M.D. Body/Diagnostic Radiologist [email or web address] Transcribed: 3:06 pm DW/Dictated by: Nik Hutchison MD @ 12/14/2024 2:36:00 PM (Electronically Signed)
== END 2024-12-12 07:07 | disposition home or self-care (01) ==
LOC: US 07:07
PROVIDERS: PCP Nurse Practitioner Family; Visit Provider Obstetrics & Gynecology
DX: O99.213 Obesity complicating pregnancy, third trimester (principal); O40.3XX0 Polyhydramnios, third trimester, not applicable or unspecified; Z3A.38 38 weeks gestation of pregnancy
CPT/HCPCS: 76816; 76819